=== PATIENT | male | born 1950 | race American Indian/Alaskan Native ===

== ENCOUNTER 2016-08-18 10:00 | Outpatient (CLI) | payer MEDICARE ==
--- NOTE | 2016-08-18 12:11 | Magnetic Resonance Report ---
MRI BRAIN WITHOUT CONTRAST INDICATION: Dementia, seizures. COMPARISON: Head CT from yesterday and 03/23/2013 brain MRI. FINDINGS: Noncontrast multiplanar and multisequence MRI of the brain again demonstrates symmetric, mild to moderate ventricular and sulcal enlargement. Slight periventricular FLAIR and T2 weighted hyperintensities. Approximately 5 mm right periventricular/caudate lacunar infarct, axial image 14, series 7. No definite acute infarct, hemorrhage mass effect or midline shift. No abnormal extra axial masses or fluid collections. Normal major intracranial vascular flow voids. Normal posterior fossa with preserved basilar cisterns and symmetric seventh and eighth complexes. Unremarkable eye globes. Leftward nasal septal deviation. Mild bilateral ethmoid, left frontal and right maxillary sinus mucosal thickening suspected. Clear remainder imaged paranasal sinuses and mastoid air cells. Normal midline appearance without evidence of Chiari malformation, though corpus callosum again appears somewhat small/atrophic as well. CONCLUSION: No acute intracranial CT abnormality or significant interval change with atrophy and few other incidental findings again noted, as described. Please correlate. Thank you for the opportunity to participate in this patient's care.
== END 2016-08-18 10:01 | disposition home or self-care (01) ==
LOC: MRI 10:00
PROVIDERS: ATTEND Psychiatry & Neurology Neurology
DX: F03.90 Unspecified dementia, unspecified severity, without behavioral disturbance, psychotic disturbance, mood disturbance, and anxiety (principal); F44.5 Conversion disorder with seizures or convulsions; J34.2 Deviated nasal septum; G31.89 Other specified degenerative diseases of nervous system
CPT/HCPCS: 70551

== ENCOUNTER 2018-09-08 12:27 | Inpatient (IN) | payer MEDICARE, MEDICAID ==
[2018-09-08] MEDS ORDERED: AMIDATE IV ONE ×2 (12:52→14:39)
[2018-09-08] MEDS ORDERED: ZEMURON IV ONE ×2 (12:52→14:39)
[2018-09-08] MEDS ORDERED: VASELINE LIP THERAPY TP PRN (13:00)
[2018-09-08] MEDS ORDERED: ARTIFICIAL TEARS OPHTH OINT OU PRN (13:00)
[2018-09-08] MEDS ORDERED: VERSED IV PRN (13:00)
[2018-09-08] MEDS ORDERED: NACL 0.9% 1000 ML 1,000 ML IV ONE (13:01)
[2018-09-08] MEDS ORDERED: KEPPRA 1,000 MG/NS 0.75% 100ML 1,000 MG/100 ML BAG IV ONE (13:01)
[2018-09-08 13:34] LABS: Hematocrit 43.6 % (35.5-45.6); Hemoglobin 14.1 gm/dl (11.8-15.2); Mean Corpuscular HGB Conc 32 % (32-34); Mean Corpuscular Volume 93 fl (84-94); Platelet Count 188 K/mm3 (140-440); Red Blood Count 4.67 M/mm3 (3.65-5.03); Red Cell Distribution Width 13.7 % (13.2-15.2)
--- NOTE | 2018-09-08 13:34 | Emergency Department Report ---
HPI - General Time Seen by Provider: 09/08/18 13:00 - HPI HPI: 67-year-old -[place] male presents to the emergency department via EMS from his [facility] with complaint of some seizure-like activity, a fall, some head injury with laceration, followed by some agitation requiring sedation. The patient is listed as having history of dementia with some occasional behavi oral disturbances, COPD, malnutrition, previous alcohol abuse with mood disorder and there is a diagnosis of conversion disorder with seizures or convulsions. The report is that the patient had some seizure-like activity that caused him to fall from his bed, hit his head and have a laceration. EMS found the patient to be very agitated and combative and gave him 10 mg of Versed as treatment. The patient presents sedated or unresponsive with some low oxygen and an abnormal respiratory pattern. He had a pulse ox of 85% on a nonrebreather. ED Past Medical Hx - Past Medical History Hx Congestive Heart Failure: No Hx Diabetes: No Hx Renal Disease: Yes Hx Arthritis: Yes (GOUT) Hx Seizures: Yes (SECONDARY TO ETOH ABUSE) Hx Asthma: No Hx COPD: No Hx Dementia: Yes - Social History Smoking Status: Unknown if ever smoked Substance Use Type: None - Medications Home Medications: Home Medications Medication Instructions Recorded Confirmed Last Taken Type Citalopram [celeXA] 10 mg PO QDAY #30 tablet 06/28/15 09/08/18 Unknown Rx Folic Acid [Folvite] 1 mg PO QDAY #30 tablet 06/28/15 09/08/18 Unknown Rx Isoniazid 300 mg PO QDAY #30 tablet 06/28/15 09/08/18 Unknown Rx Pyridoxine [Vitamin B-6 50MG TAB] 50 mg PO DAILY #30 tablet 06/28/15 09/08/18 Unknown Rx Thiamine [Vitamin B-1] 100 mg PO QDAY #30 tablet 06/28/15 09/08/18 Unknown Rx LORazepam [Ativan INJ] 0.5 mg IM Q8H PRN 09/08/18 09/08/18 Unknown History LORazepam [Ativan] 0.25 mg PO DAILY 09/08/18 09/08/18 Unknown History Lacosamide [Vimpat] 200 mg PO Q12H 09/08/18 09/08/18 Unknown History Memantine HCl [Namenda] 10 mg PO QAM&QHS 09/08/18 09/08/18 Unknown History Mirtazapine 7.5 mg PO HS 09/08/18 09/08/18 Unknown History ED Review of Systems ROS: Stated complaint: SEIZURE Other details as noted in HPI Comment: Unobtainable due to pts medical conditions Physical Exam - Physical Exam Vital Signs: Vital Signs 09/08/18 12:30 Pulse Rate 119 H Respiratory 20 Rate Blood Pressure 103/66 O2 Sat by Pulse 98 Oximetry Physical Exam: GENERAL: Patient is ill-appearing. HENT: Normocephalic. Atraumatic. Patient has moist mucous membranes. EYES: Pupils equal reactive to light bilaterally. NECK: Supple. Trachea is midline. CHEST/LUNGS: Patient has bradypnea with abdominal retractions and accessory muscle use. He is having some snoring respirations. There is respiratory distress noted. HEART/CARDIOVASCULAR: Regular. There is mild to moderate tachycardia. There is no murmur. ABDOMEN: Abdomen is soft, nontender. Patient has normal bowel sounds. There is no abdominal distention. SKIN: Skin is warm and dry. There is a small non-expanding hematoma and abrasion or superficial laceration over the right eyebrow. NEURO: The patient is unresponsive or postictal. He is not following any commands. MUSCULOSKELETAL: There is no tenderness or deformity. Radial pulse +2 over 4. Capillary refill less than 2 seconds. ED Course Vital Signs 09/08/18 12:30 Pulse Rate 119 H Respiratory 20 Rate Blood Pressure 103/66 O2 Sat by Pulse 98 Oximetry - ABG Interpretation Ph: 7.477 PCO2: 31 PO2: 136 Bicarbonate: 23 Interpretation: normal - Intubation Time Out Performed: Yes Sedative: Etomidate Mg Given: 20 Paralytic: Rocuronium Mg Given: 70 Laryngoscope: Wolf Size: 4 ET Tube Size: 7.5 Tube Secured Depth (cm): 24 Tube Secured Location: lips Tube Placement Confirmation: visualized tube passing t, equal breath sounds bilat, confirmation by capnometr Patient Tolerated Procedure: well Intubation Complications: none - Pulse Oximetry Interpretation Digit-Finger Initial Pulse Oximetry Readin O2 Sat by Pulse Oximetry: 86 Actions Taken: intubated Additional Comments: Patient had pulse ox of 86% on nonrebreather with signs of respiratory distress. ED Medical Decision Making - Lab Data Result diagrams: 09/08/18 13:04 09/08/18 13:04 - EKG Data -: EKG Interpreted by Fl EKG shows normal: sinus rhythm, axis, intervals, QRS complexes, ST-T waves Rate: tachycardia (116 bpm) - Radiology Data Radiology results: report reviewed PROCEDURE: CT HEAD/BRAIN WO CON TECHNIQUE: Computerized tomography of the head was performed without contrast material. CT DOSE LENGTH PRODUCT: 1166.5 mGycm HISTORY: Seizure COMPARISONS: MRI brain 08/18/2016 . FINDINGS: Skull and scalp: Normal . Paranasal sinuses: Normal . Ventricles and subarachnoid spaces: Normal . Cerebrum: No evidence of hemorrhage, acute infarction or mass . Tiny remote lacunar infarct in the right basal ganglia is unchanged. Cerebellum and brainstem: No evidence of hemorrhage, acute infarction or mass . Vasculature: Normal . Other: None . ASPECTS: 10 IMPRESSION: No acute intracranial abnormality. No change. This document is electronically signed by Aury Gabriel MD., September 08 2018 04:22:14 PM ET Transcribed By: [facility] Dictated By: AURY GABRIEL MD Electronically Authenticated By: AURY GABRIEL MD Signed Date/Time: 09/08/18 1624 PROCEDURE: CT CERVICAL SPINE WO CON TECHNIQUE: Computerized tomography of the cervical spine was performed from the skull base to T1 without contrast material. CT DOSE LENGTH PRODUCT: 570.4 mGycm HISTORY: Seizure COMPARISONS: None . FINDINGS: Bony alignment is normal. The vertebral heights are maintained. There is loss of height of the disc spaces throughout the cervical spine with associated degenerative endplate change.. There is multiple level uncovertebral degenerative change and degenerative facet change. There is multiple level moderate to marked bony canal and foraminal stenosis secondary to spondylitic change. Visualization of detail the contents of the cervical canal is limited by artifact. There is no evidence of fracture or subluxation. The paraspinous soft tissues are unremarkable. An endotracheal tube is demonstrated. The tip is not included in the [id number]. The visualized portions of the lungs are notable for pulmonary emphysema. IMPRESSION: 1. No evidence of fracture or subluxation. 2. Cervical spondylosis with multiple level canal and foraminal stenosis. If further imaging is required, MRI may be helpful. 3. Pulmonary emphysema. This document is electronically signed by Soledad Thompson MD., September 08 2018 04:32:19 PM ET Transcribed By: Dictated By: SOLEDAD THOMPSON MD Electronically Authenticated By: SOLEDAD THOMPSON MD Signed Date/Time: 09/08/18 9570 . - Medical Decision Making This patient presented after having an alleged seizure at his [facility] followed by some respiratory distress. When the patient got to the emergency department he was 86% on a nonrebreather and was having some shallow slow respirations. This may be secondary to being postictal but the patient also did receive a large dose of benzodiazepines for his agitation in route. For this reason the patient was intubated. Patient had a CT scan of the head as well as the cervical spine that did not show any fracture, dislocation, subluxation, bleed, shift, mass, ischemia, or any other acute process. The patient's labs have been mostly unremarkable for any etiology of his seizure or fall. Patient will be admitted to the ICU for further evaluation and treatment and was accepted for admission by the hospitalist, Dr. Sarmiento. - Differential Diagnosis epilepsy, conversion disorder, substance abuse, dementia Critical Care Time: Yes Critical care time in (mins) excluding proc time.: 35 Critical care attestation.: If time is entered above; I have spent that time in minutes in the direct care of this critically ill patient, excluding procedure time. Critical care time was spent on this patient during his initial evaluation, multiple re- evaluations, ordering and interpretation of labs and imaging. This does not include the time spent for the intubation procedure. Critical Care Time: 35 minutes ED Disposition Clinical Impression: Seizure, Acute respiratory failure with hypoxia Disposition: OP ADMIT IP TO THIS HOSP Is pt being admited?: Yes Condition: Critical
[2018-09-08] MEDS: MIDAZOLAM 100 MG in NACL 0.9% 80 ML IV SCH (13:41)
--- NOTE | 2018-09-08 13:54 | XRay Report ---
AP CHEST: HISTORY: Endotracheal tube placement The endotracheal tube appears to terminate 1.3 cm superior to the mika. The lungs are hyperinflated but clear. No pleural effusion or pneumothorax. Normal heart size and pulmonary vessels. The bony structures are demineralized but grossly intact. Chronic left rib deformities and chronic right distal clavicle deformity are noted. IMPRESSION: Endotracheal tube as described. Hyperinflated lungs.
[2018-09-08 14:20] LABS: Alanine Aminotransferase 10 units/L (7-56); Albumin 3.9 g/dL (3.9-5); BUN/Creatinine Ratio 8; Blood Urea Nitrogen 11 mg/dL (9-20); Calcium 9.6 mg/dL (8.4-10.2); Hemolysis Index 55
[2018-09-08] MEDS: fentaNYL DRIP Premix 2,000 MCG/100 ML BAG IV SCH (14:31)
[2018-09-08 14:48] LABS: Basophils % (Manual) 0 % (0.0-1.8); Total Cells Counted 100
[2018-09-08 14:49] LABS: Anisocytosis Few; Platelet Estimate Consistent w Auto; Poikilocytosis Few
[2018-09-08 15:47] LABS: Bilirubin,Urine NEG (Negative); Blood,Urine NEG (Negative); Color,Urine Yellow (Yellow); Hyaline Casts,Urine 1 /LPF; Mucus,Urine FEW /HPF; Protein,Urine <15 mg/dL mg/dL (Negative); Urobilinogen,Urine < 2.0 mg/dL (<2.0)
[2018-09-08 16:00] LABS: Amphetamine Screen,Urine PRESUMPTIVE NEGATIVE; Cannabinoid Screen,Urine PRESUMPTIVE NEGATIVE; Cocaine Screen,Urine PRESUMPTIVE NEGATIVE; Methadone Screen,Urine PRESUMPTIVE NEGATIVE; Opiate Screen,Urine PRESUMPTIVE NEGATIVE
[2018-09-08] MEDS ORDERED: KETALAR IV ONE (16:03)
--- NOTE | 2018-09-08 16:24 | Cat Scan Report ---
PROCEDURE: CT HEAD/BRAIN WO CON TECHNIQUE: Computerized tomography of the head was performed without contrast material. CT DOSE LENGTH PRODUCT: 1166.5 mGycm HISTORY: Seizure COMPARISONS: MRI brain 08/18/2016 . FINDINGS: Skull and scalp: Normal . Paranasal sinuses: Normal . Ventricles and subarachnoid spaces: Normal . Cerebrum: No evidence of hemorrhage, acute infarction or mass . Tiny remote lacunar infarct in the r ight basal ganglia is unchanged. Cerebellum and brainstem: No evidence of hemorrhage, acute infarction or mass . Vasculature: Normal . Other: None . ASPECTS: 10 IMPRESSION: No acute intracranial abnormality. No change. This document is electronically signed by Aury Gabriel MD., September 08 2018 04:22:14 PM ET
[2018-09-08 16:27] LABS: Benzodiazepines Screen,Urine PRESUMPTIVE POSITIVE
--- NOTE | 2018-09-08 16:34 | Cat Scan Report ---
PROCEDURE: CT CERVICAL SPINE WO CON TECHNIQUE: Computerized tomography of the cervical spine was performed from the skull base to T1 wit hout contrast material. CT DOSE LENGTH PRODUCT: 570.4 mGycm HISTORY: Seizure COMPARISONS: None . FINDINGS: Bony alignment is normal. The vertebral heights are maintained. There is loss of height of the disc spaces throughout the cervical spine with associated degenerative endplate change.. There is multiple level uncovertebral degenerative change and degenerative facet change. There is multiple level moderate to marked bony canal and foraminal stenosis secondary to spondylitic change. Visualization of detail the contents of the cervical canal is limited by artifact. There is no evidence of fracture or subluxation. The paraspinous soft tissues are unremarkable. An endotracheal tube is demonstrated. The tip is not included in the [id number]. The visualized portions of the lungs are notable for pulmonary emphysema. IMPRESSION: 1. No evidence of fracture or subluxation. 2. Cervical spondylosis with multiple level canal and foraminal stenosis. If further imaging is required, MRI may be helpful. 3. Pulmonary emphysema. This document is electronically signed by Soledad Thompson MD., September 08 2018 04:32:19 PM ET
[2018-09-09] MEDS: KEPPRA 750 MG in D5W 100 ML IV SCH ×3 (00:28→21:41)
--- NOTE | 2018-09-09 00:46 | XRay Report ---
PROCEDURE: XR CHEST 1V AP TECHNIQUE: Chest radiograph single view. HISTORY: follow up respiratory failure COMPARISONS: None available . FINDINGS: Heart: Normal. Mediastinum/Vessels: Normal. Lungs/Pleural space: Slight atelectasis and mild effusion left lower lung.. Bony thorax: No acute osseous abnormality. Life support devices: None. IMPRESSION: Slight atelectasis and mild effusion left lower lung. This document is electronically signed by Pauline Felix DO., September 09 2018 12:44:19 AM ET
[2018-09-09] MEDS ORDERED: HALDOL IM PRN (02:00)
--- NOTE | 2018-09-09 07:18 | Event Note ---
Date: 09/08/18 Status Epilepticus Intubated
[2018-09-09] MEDS ORDERED: PROVENTIL IH PRN (07:28)
--- NOTE | 2018-09-09 07:46 | History and Physical Report ---
CHIEF COMPLAINT: Persistent seizures. HISTORY OF PRESENT ILLNESS: A 67-year-old -[place]azi male with history of seizure disorder, who was sent from [facility] for a fall with a laceration to the head, followed by agitation requiring sedation. The patient has severe dementia and COPD. The patient was very agitated and combative and was given 10 mg of Versed. The patient had very low oxygen levels, persistent hypoxia and sats of 85% on a nonrebreather. Because of persistent hypoxia and seizures, the patient was intubated for protection of airway and for oxygenation. PAST MEDICAL HISTORY: Significant for seizure disorder, dementia, arthritis. PAST SURGICAL HISTORY: Not available. SOCIAL HISTORY: The patient is a resident of [facility]. FAMILY HISTORY: Unavailable. PHYSICAL EXAMINATION: GENERAL: Elderly male, disheveled, intubated. VITAL SIGNS: Blood pressure is 106/71, temperature is 98, pulse is 98, respiratory rate is 12-14 on the vent. HEENT: Unremarkable. NECK: Supple, no lymphadenopathy, no thyromegaly, intubated. LUNGS: Scattered rhonchi bilaterally. CARDIOVASCULAR: S1, S2 heard. No gallop, no murmur, no rub. Apical impulse in left fifth intercostal space and midclavicular line. ABDOMEN: Soft and benign. No hepatosplenomegaly. No guarding, no rigidity. Hernial orifices are normal. EXTREMITIES: Good pedal pulses. No pedal edema. CENTRAL NERVOUS SYSTEM: The patient is sedated. 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 LABORATORY DATA: Shows white count is 13,700, H and H are 14.1 and 43.6, platelet count is 188,000. Electrolytes are normal. Bicarbonate is 15. TSH is 12.13. Urine normal. Drug screen positive for benzos. The patient is on benzos. Chest x-ray, no acute findings, endotracheal tube in place. Head CT and cervical spine CT, no fractures, no acute findings. The patient has cervical spondylosis with multiple level canal and foraminal stenosis. Primary emphysema. Head CT with no acute findings like bleed. ASSESSMENT AND PLAN: 1. Status epilepticus. The patient intubated. IV Keppra was initiated. IV fluids initiated. 2. Acute respiratory failure. The patient on vent support. DuoNebs around the clock and p.r.n. 3. Laceration to the head, daily dressing. 4. Dementia, supportive care. The patient is on Namenda to be started after extubation. 5. Elevated TSH checked. Free T4 ordered. Thyroid panel ordered. No Synthroid was ordered. Check a thyroid panel and Synthroid if necessary. 6. Deep venous thrombosis prophylaxis. Lovenox 30 mg subcutaneous daily. Critical care time was 35 minutes. JOB# [id number] MANOJ/DAKOTA CALIXTO
--- NOTE | 2018-09-09 08:36 | Progress Note ---
Assessment and Plan Assessment and plan: Patient is a 67 yo man from [facility] with a history of Advance Dementia, COPD, Anxiety disorder, Seizure disorder due to prior ETOH abuse, gout and CKD 3 who presented to [facility] ED after seizure and fall resulting in patient hitting his head on the floor causing laceration followed by agitation. There is report of him being non-compliant with meds at the [facility]. He was combative en route to hospital and EMS gave him Versed. He was sedaged and unresponsive with pulse ox of only 85% on Nonrebreather 100% O2 mask. He was subsequently intubated by Dr. Clemente and admitted to the ICU * CT head wo contrast IMPRESSION: No acute intracranial abnormality. No change. * pCXR IMPRESSION: Slight atelectasis and mild effusion left lower lung. * CT cervical spine wo contrast IMPRESSION: 1. No evidence of fracture or subluxation. 2. Cervical spondylosis with multiple level canal and foraminal stenosis. If further imaging is required, MRI may be helpful. 3. Pulmonary emphysema. Acute respiratory failure s/p ETT MV: daily weaning, MV monitoring, O2 monitoring, Consult [facility] Status Epilepticus: treat with IV keppra, consult Neurology when available Acute encephalopathy due to the above, poa SIRS with organ dysfunction, poa wbc 13.7 with right shift, normal h/h/plt Prasad in place: remove Head trauma s/p seizure syncopal fall: local wound care Acidotic, carbon dioxide level 15 normal Cr 1.5 Elevated TSH 12.130 with normal Free T4 of 1.07, subclinical vs critical illness rxn UDS positive for Benzodiazepines, normal serum alcohol DVT ppx on sq lovenox full code CCT 32 minutes History Interval history: Patient was seen and examined. Follow-up on current diagnosis of SZ and respiratory failure. No overnight events reported to me. Patient denies any chest pain, shortness breath, nausea/vomiting or severe headaches. Imaging, nursing note, chart, labs and old chart reviewed. Discussed with patient. Hospitalist Physical - Physical exam Narrative exam: Gen: ill appearing, thin frail, intubated HEENT: >with head laceratio, EOMI, Intubated with ETT in place Neck: supple, no adenopathy, no thyromegaly, no JVD CVS/Heart: RRR, normal S1S2, pulses present bilaterally Chest/Lungs: CTA B, Symmetrical chest expansion, good air entry bilaterally GI/Abdomen: soft, NTND, good bowel sounds, no guarding or rebound /Bladder: no suprapubic tenderness, no CVA or paraspinal tenderness Extermity/Skin: no c/c/e, no obvious rash MSK: sedated Neuro: sedated Psych: sedated - Constitutional Vitals: Temp Pulse Resp BP Pulse Ox 98.8 F 86 14 102/69 100 09/09/18 05:00 09/09/18 07:10 09/09/18 07:10 09/09/18 07:10 09/09/18 07:10 Results - Labs CBC & Chem 7: 09/08/18 13:04 09/08/18 13:04 Labs: Laboratory Last Values WBC 13.7 K/mm3 (4.5-11.0) H 09/08/18 13:04 RBC 4.67 M/mm3 (3.65-5.03) 09/08/18 13:04 Hgb 14.1 gm/dl (11.8-15.2) 09/08/18 13:04 Hct 43.6 % (35.5-45.6) 09/08/18 13:04 MCV 93 fl (84-94) 09/08/18 13:04 MCH 30 pg (28-32) 09/08/18 13:04 MCHC 32 % (32-34) 09/08/18 13:04 RDW 13.7 % (13.2-15.2) 09/08/18 13:04 Plt Count 188 K/mm3 (140-440) 09/08/18 13:04 Lymph # Police [employer] 09/08/18 13:04 Add Manual Diff Complete 09/08/18 13:04 Total Counted 100 09/08/18 13:04 Seg Neuts % (Manual) 54.0 % (40.0-70.0) 09/08/18 13:04 0 % 09/08/18 13:04 39.0 % (13.4-35.0) H 09/08/18 13:04 Reactive Lymphs % (Man) 0 % 09/08/18 13:04 5.0 % (0.0-7.3) 09/08/18 13:04 2.0 % (0.0-4.3) 09/08/18 13:04 0 % (0.0-1.8) 09/08/18 13:04 0 % 09/08/18 13:04 0 % 09/08/18 13:04 0 % 09/08/18 13:04 0 % 09/08/18 13:04 Nucleated RBC % Not Reportable 09/08/18 13:04 Seg Neutrophils # Man 7.4 K/mm3 (1.8-7.7) 09/08/18 13:04 Band Neutrophils # 0.0 K/mm3 09/08/18 13:04 5.3 K/mm3 (1.2-5.4) 09/08/18 13:04 Abs React Lymphs (Man) 0.0 K/mm3 09/08/18 13:04 0.7 K/mm3 (0.0-0.8) 09/08/18 13:04 0.3 K/mm3 (0.0-0.4) 09/08/18 13:04 0.0 K/mm3 (0.0-0.1) 09/08/18 13:04 0.0 K/mm3 09/08/18 13:04 0.0 K/mm3 09/08/18 13:04 0.0 K/mm3 09/08/18 13:04 Blast Cells # 0.0 K/mm3 09/08/18 13:04 WBC Morphology Not Reportable 09/08/18 13:04 Hypersegmented Neuts Not Reportable 09/08/18 13:04 Hyposegmented Neuts Not Reportable 09/08/18 13:04 Hypogranular Neuts Not Reportable 09/08/18 13:04 Not Reportable 09/08/18 13:04 Not Reportable 09/08/18 13:04 Not Reportable 09/08/18 13:04 Not Reportable 09/08/18 13:04 Not Reportable 09/08/18 13:04 Not Reportable 09/08/18 13:04 Consistent w auto 09/08/18 13:04 Not Reportable 09/08/18 13:04 Plt Clumps, EDTA Not Reportable 09/08/18 13:04 Not Reportable 09/08/18 13:04 Not Reportable 09/08/18 13:04 Not Reportable 09/08/18 13:04 Plt Morphology Comment Not Reportable 09/08/18 13:04 RBC Morphology Not Reportable 09/08/18 13:04 Dimorphic RBCs Not Reportable 09/08/18 13:04 Not Reportable 09/08/18 13:04 Not Reportable 09/08/18 13:04 Few 09/08/18 13:04 Few 09/08/18 13:04 Not Reportable 09/08/18 13:04 Not Reportable 09/08/18 13:04 Not Reportable 09/08/18 13:04 Not Reportable 09/08/18 13:04 Not Reportable 09/08/18 13:04 Not Reportable 09/08/18 13:04 Not Reportable 09/08/18 13:04 Not Reportable 09/08/18 13:04 Not Reportable 09/08/18 13:04 Not Reportable 09/08/18 13:04 Not Reportable 09/08/18 13:04 Not Reportable 09/08/18 13:04 Not Reportable 09/08/18 13:04 Not Reportable 09/08/18 13:04 Not Reportable 09/08/18 13:04 Acanthocytes (Spur) Not Reportable 09/08/18 13:04 Rouleaux Not Reportable 09/08/18 13:04 Not Reportable 09/08/18 13:04 Not Reportable 09/08/18 13:04 Not Reportable 09/08/18 13:04 Not Reportable 09/08/18 13:04 Hem Pathologist Commnt No 09/08/18 13:04 POC ABG pH 7.411 (7.35-7.45) 09/09/18 05:33 POC ABG pCO2 36.3 (35-45) 09/09/18 05:33 POC ABG pO2 97 (80-105) 09/09/18 05:33 POC ABG HCO3 23.0 (22-26 mml/L) 09/09/18 05:33 POC ABG Total CO2 24 (23-27mmol/L) 09/09/18 05:33 POC ABG O2 Sat 98 09/09/18 05:33 POC ABG Base Excess -2 ((-2) - (+3)mmol/L) 09/09/18 05:33 35 % 09/09/18 05:33 Sodium 141 mmol/L (137-145) 09/08/18 13:04 Potassium 3.9 mmol/L (3.6-5.0) 09/08/18 13:04 Chloride 101.6 mmol/L (98-107) 09/08/18 13:04 Carbon Dioxide 15 mmol/L (22-30) L 09/08/18 13:04 28 mmol/L 09/08/18 13:04 BUN 11 mg/dL (9-20) 09/08/18 13:04 1.3 mg/dL (0.8-1.5) 09/08/18 13:04 Estimated GFR > 60 ml/min 09/08/18 13:04 8 % 09/08/18 13:04 Glucose 86 mg/dL (75-100) 09/08/18 13:04 Calcium 9.6 mg/dL (8.4-10.2) 09/08/18 13:04 0.20 mg/dL (0.1-1.2) 09/08/18 13:04 AST 27 units/L (5-40) 09/08/18 13:04 ALT 10 units/L (7-56) 09/08/18 13:04 64 units/L (35-129) 09/08/18 13:04 109 units/L (55-170) 09/08/18 13:04 7.0 g/dL (6.3-8.2) 09/08/18 13:04 3.9 g/dL (3.9-5) 09/08/18 13:04 1.3 % 09/08/18 13:04 TSH 12.130 mlU/mL (0.270-4.200) H 09/08/18 13:04 Free T4 1.07 ng/dL (0.76-1.46) 09/08/18 13:04 Yellow (Yellow) 09/08/18 15:20 Slightly-cloudy (Clear) 09/08/18 15:20 5.0 (5.0-7.0) 09/08/18 15:20 Ur Specific Revere 1.009 (1.003-1.030) 09/08/18 15:20 <15 mg/dl mg/dL (Negative) 09/08/18 15:20 Neg mg/dL (Negative) 09/08/18 15:20 Neg mg/dL (Negative) 09/08/18 15:20 Neg (Negative) 09/08/18 15:20 Neg (Negative) 09/08/18 15:20 Neg (Negative) 09/08/18 15:20 < 2.0 mg/dL (<2.0) 09/08/18 15:20 Ur Leukocyte Esterase Neg (Negative) 09/08/18 15:20 1.0 /HPF (0.0-6.0) 09/08/18 15:20 3.0 /HPF (0.0-6.0) 09/08/18 15:20 U Epithel Cells (Auto) < 1.0 /HPF (0-13.0) 09/08/18 15:20 Hyaline Casts 1 /LPF 09/08/18 15:20 Few /HPF 09/08/18 15:20 Presumptive negative 09/08/18 15:21 Presumptive negative 09/08/18 15:21 Ur Barbiturates Screen Presumptive negative 09/08/18 15:21 Ur Phencyclidine Scrn Presumptive negative 09/08/18 15:21 Ur Amphetamines Screen Presumptive negative 09/08/18 15:21 U Benzodiazepines Scrn Presumptive positive 09/08/18 15:21 Presumptive negative 09/08/18 15:21 U Marijuana (THC) Screen Presumptive negative 09/08/18 15:21 Disclamer 09/08/18 15:21 Plasma/Serum Alcohol < 0.01 % (0-0.07) 09/08/18 13:04 Active Medications - Current Medications Current Medications: Generic Name Dose Route Start Last Admin Trade Name Freq PRN Reason Stop Dose Admin Albuterol 2.5 mg 09/09/18 07:28 Proventil IH Q4HRT PRN Shortness Of Breath Albuterol/Ipratropium 1 ampul 09/09/18 08:00 Duoneb *Not For Prn Use* IH QIDRT [facility] Enoxaparin Sodium 40 mg 09/09/18 22:00 Lovenox SUB-Q QDAY@2200 [facility] Hydrophilic Ointment 1 applic 09/08/18 13:00 Vaseline Lip Therapy TP Q2HR PRN Dry Lips Midazolam HCl 100 mg/ Sodium 100 mls @ 2 mls/hr 09/08/18 14:00 09/08/18 23:44 Chloride IV 2 mg/hr TITR [facility] 2 mls/hr Titration Protocol 2 MG/HR Fentanyl Citrate 2,000 mcg in 100 mls @ 3.2 mls/hr 09/08/18 15:00 09/08/18 14:31 Fentanyl Drip Premix IV 1 mcg/kg/hr TITR [facility] 3.2 mls/hr Administration Protocol 1 MCG/KG/HR Levetiracetam 750 mg/ Dextrose 107.5 mls @ 400 mls/hr 09/08/18 23:00 09/09/18 00:28 IV 400 mls/hr Q12HR [facility] Administration Ceftriaxone Sodium 2 gm in 100 mls @ 200 mls/hr 09/09/18 07:28 Rocephin/Ns 2 Gm/100 Ml IV Q24HR [facility] Protocol Midazolam HCl 2 mg 09/08/18 13:00 Versed IV Q10MIN PRN Sedation Multi-Ingred Cream/Lotion/Oil/Oint 1 applic 09/08/18 13:00 Artificial Tears Ophth Oint OU Q4HR PRN Dry Eye(s)
[2018-09-09] MEDS: fentaNYL DRIP Premix 2,000 MCG/100 ML BAG IV SCH (09:03)
[2018-09-09] MEDS: ROCEPHIN/NS 2 GM/100 ML 2 GM/100 ML BAG IV SCH (09:03)
[2018-09-09] MEDS: DUONEB *Not for PRN Use IH SCH ×4 (09:51→19:32)
[2018-09-09 15:01] LABS: Free T4 (Free Thyroxine) 1.22 ng/dL (0.76-1.46)
--- NOTE | 2018-09-09 15:25 | Consultation ---
History of Present Illness Consult date: 09/09/18 Requesting physician: HARINDER ECKERT Reason for consult: hypoxemia (secondary to sedative medication and possible status epilepticus) History of present illness: 67 y/o male brought in for seizures. apparently became combative and was given versed 10 by EMS per report. On arrival patient had a sat of 85% on a Nonreb reather. He was intubated and then started on continuous sedation. Currently comatose, not breathing over the vent on Versed 2 and Fentanyl 2. He has not had a sedation vacation. He was started on BID Keppra for seizures. Past History Past Medical History: other (unable to obtain from patient but apparently has psych history and history of seizures) Past Surgical History: Other (unable to obtain) Social history: other (unable to obtain) Family history: other (unable to obtain) Medications and Allergies Allergies Allergy/AdvReac Type Severity Reaction Status Date / Time No Known Allergies Allergy Verified 03/21/13 23:55 Home Medications Medication Instructions Recorded Confirmed Last Taken Type Citalopram [celeXA] 10 mg PO QDAY #30 tablet 06/28/15 09/08/18 Unknown Rx Folic Acid [Folvite] 1 mg PO QDAY #30 tablet 06/28/15 09/08/18 Unknown Rx Isoniazid 300 mg PO QDAY #30 tablet 06/28/15 09/08/18 Unknown Rx Pyridoxine [Vitamin B-6 50MG TAB] 50 mg PO DAILY #30 tablet 06/28/15 09/08/18 Unknown Rx Thiamine [Vitamin B-1] 100 mg PO QDAY #30 tablet 06/28/15 09/08/18 Unknown Rx LORazepam [Ativan INJ] 0.5 mg IM Q8H PRN 09/08/18 09/08/18 Unknown History LORazepam [Ativan] 0.25 mg PO DAILY 09/08/18 09/08/18 Unknown History Lacosamide [Vimpat] 200 mg PO Q12H 09/08/18 09/08/18 Unknown History Memantine HCl [Namenda] 10 mg PO QAM&QHS 09/08/18 09/08/18 Unknown History Mirtazapine 7.5 mg PO HS 09/08/18 09/08/18 Unknown History Active Meds: Active Medications Albuterol (Proventil) 2.5 mg IH Q4HRT PRN PRN Reason: Shortness Of Breath Albuterol/Ipratropium (Duoneb *Not For Prn Use*) 1 ampul IH QIDRT [facility] Last Admin: 09/09/18 13:52 Dose: 1 ampul Documented by: Enoxaparin Sodium (Lovenox) 40 mg SUB-Q QDAY@2200 BALDEMAR Hydrophilic Ointment (Vaseline Lip Therapy) 1 applic TP Q2HR PRN PRN Reason: Dry Lips Midazolam HCl 100 mg/ Sodium (Chloride) 100 mls @ 2 mls/hr IV TITR [facility]; Protocol Last Titration: 09/08/18 23:44 Dose: 2 mg/hr, 2 mls/hr Documented by: Fentanyl Citrate (Fentanyl Drip Premix) 2,000 mcg in 100 mls @ 3.2 mls/hr IV TITR [facility]; Protocol Last Admin: 09/09/18 09:03 Dose: 1 mcg/kg/hr, 3.2 mls/hr Documented by: Levetiracetam 750 mg/ Dextrose 107.5 mls @ 400 mls/hr IV Q12HR [facility] Last Admin: 09/09/18 09:03 Dose: 400 mls/hr Documented by: Ceftriaxone Sodium (Rocephin/Ns 2 Gm/100 Ml) 2 gm in 100 mls @ 200 mls/hr IV Q24HR [facility]; Protocol Last Admin: 09/09/18 09:03 Dose: 200 mls/hr Documented by: Midazolam HCl (Versed) 2 mg IV Q10MIN PRN PRN Reason: Sedation Multi-Ingred Cream/Lotion/Oil/Oint (Artificial Tears Ophth Oint) 1 applic OU Q4HR PRN PRN Reason: Dry Eye(s) Review of Systems ROS unobtainable: due to endotracheal tube, due to mental status Physical Examination Vital signs: Vital Signs Pulse Resp BP Pulse Ox 119 H 20 103/66 98 09/08/18 12:30 09/08/18 12:30 09/08/18 12:30 09/08/18 12:30 General appearance: comatose Eyes: non-icteric ENT: other (orally intubated and sedated) Neck: supple Effort: normal Ascultation: Bilateral: clear Percussion: Bilateral: not dull Cardiovascular: regular rate and rhythm (sinus tachycardia) Gastrointestinal: soft, non-tender Extremities: no cyanosis, no edema, pink and warm, pulses normal unable to assess Results - Laboratory Findings CBC and BMP: 09/08/18 13:04 09/08/18 13:04 ABG POC ABG pH 7.411 (7.35-7.45) 09/09/18 05:33 POC ABG pCO2 36.3 (35-45) 09/09/18 05:33 POC ABG pO2 97 (80-105) 09/09/18 05:33 POC ABG HCO3 23.0 (22-26 mml/L) 09/09/18 05:33 POC ABG Total CO2 24 (23-27mmol/L) 09/09/18 05:33 POC ABG O2 Sat 98 09/09/18 05:33 Abnormal lab findings: Abnormal Labs 09/08/18 09/08/18 09/08/18 13:04 13:04 13:04 WBC 13.7 H Lymphocytes % (Manual) 39.0 H POC ABG pH POC ABG pCO2 POC ABG pO2 Carbon Dioxide 15 L TSH 12.130 H 09/08/18 17:18 WBC Lymphocytes % (Manual) POC ABG pH 7.477 H POC ABG pCO2 31.5 L POC ABG pO2 136 H Carbon Dioxide TSH - Diagnostic Findings Chest x-ray: image reviewed (Hyperinflated lungs but clear, no evidence of acute disease) Assessment and Plan 67 y/o male admitted with seizures and altered mental status, required mechanical ventilation for hypoxic respiratory failure thought secondary to meds used for control of agitation. 1. Stop all sedation 2. Spontaneous breathing trial once more awake 3. If no seizures and no other contraindications, will attempt extubation. 4. Seizure control, suggest neurology eval CCT 31 minutes.
[2018-09-09] MEDS ORDERED: PANCREAZE DR 10,500 UNIT FEEDTUBE PRN (16:12)
[2018-09-09] MEDS ORDERED: SODIUM BICARBONATE FEEDTUBE PRN (16:12)
[2018-09-09] MEDS ORDERED: SIMPLE SYRUP FEEDTUBE PRN ×2 (16:12)
--- NOTE | 2018-09-09 16:23 | XRay Report ---
PROCEDURE: XR CHEST 1V AP TECHNIQUE: Chest radiograph single view. HISTORY: PICC placement COMPARISONS: CXR 09/09/2018 . FINDINGS: Heart: Normal. Mediastinum/Vessels: Normal. Lungs/Pleural space: Normal. No pneumothorax Bony thorax: No acute osseous abnormality. Life support devices: Left subclavian PICC line terminates in the distal superior vena cava in satisf actory position.. Endotracheal tube is unchanged. IMPRESSION: No acute cardiopulmonary abnormality. Satisfactory left PICC line placement This document is electronically signed by Aury Gabriel MD., September 09 2018 04:21:50 PM ET
[2018-09-09] MEDS ORDERED: HALDOL IV STA (19:42)
[2018-09-09] MEDS ORDERED: ATIVAN IV STA (19:42)
[2018-09-09] MEDS ORDERED: BENADRYL IV STA (19:45)
[2018-09-09] MEDS: LOVENOX SUB-Q SCH (21:42)
[2018-09-09] MEDS ORDERED: LOVENOX SUB-Q SCH (22:00)
[2018-09-09] MEDS: ATIVAN IV PRN (23:30)
--- NOTE | 2018-09-10 | XRay Report ---
PROCEDURE: XR CHEST 1V AP TECHNIQUE: Chest radiograph single view. HISTORY: Intubation COMPARISONS: Earlier the same date . FINDINGS: Heart: Normal. Mediastinum/Vessels: Normal. Lungs/Pleural space: Mild atelectasis bilateral lower lungs. No effusion or pneumothorax. Bony thorax: No acute osseous abnormality. Life support devices: The endotracheal tube ends 5 cm above the mkia. A left PICC catheter ends in the SVC. IMPRESSION: Mild atelectasis bilateral lower lungs. The endotracheal tube ends 5 cm above the mika . This document is electronically signed by Pauline Felix DO., September 09 2018 11:58:31 PM ET
[2018-09-10] MEDS ORDERED: HALDOL IV PRN (02:46)
[2018-09-10] MEDS: ATIVAN IV PRN (06:00)
--- NOTE | 2018-09-10 06:58 | Progress Note ---
Assessment and Plan 67 y/o male admitted with seizures and altered mental status, required mechanical ventilation for hypoxic respiratory failure thought secondary to meds used for control of agitation, s/p extubation, failed and reintubated in less than 8 hours. 1. Continue PRN sedative therapy with haldol and ativan 2. PSV trial today 3. Patient apparently with long psych history. Maybe worth while asking psych to obtain his records and review and see if they can offer in options to maintain a calm clinical state that is not too sedating. 4. Seizure control, suggest neurology eval CCT 31 minutes. Subjective Date of service: 09/10/18 Interval history: Extubated patient yesterday afternoon. Did well initially but then around 11:15 became acute agitated, had seizure like activity again and required reintubation. Done by RT successfully with no complications. Per nursing, thick secretions seen and suctioned. Per RT, not a lot of secretions seen this am while suctioning. CXR is actually clear. No fever but was slightly hypothermic post-intubation. Currently not on continuous sedation. Did get ativan again this am for what the nurse described as tremors. Objective Vital Signs - 12hr 09/09/18 09/09/18 09/09/18 19:00 19:05 19:19 Temperature Pulse Rate 127 H 145 H 151 H Pulse Rate [ Anterior Bilateral Throughout] Respiratory 16 Rate Respiratory Rate [Anterior Bilateral Throughout] Blood Pressure 107/70 112/77 O2 Sat by Pulse 100 98 Oximetry 09/09/18 09/09/18 09/09/18 19:28 19:30 19:32 Temperature Pulse Rate Pulse Rate [ 135 H Anterior Bilateral Throughout] Respiratory Rate Respiratory 18 Rate [Anterior Bilateral Throughout] Blood Pressure 112/77 O2 Sat by Pulse 98 96 Oximetry 09/09/18 09/09/18 09/09/18 19:48 20:00 20:20 Temperature 98.5 F Pulse Rate 146 H Pulse Rate [ 134 H Anterior Bilateral Throughout] Respiratory 21 Rate Respiratory 18 Rate [Anterior Bilateral Throughout] Blood Pressure 112/77 O2 Sat by Pulse 99 Oximetry 09/09/18 09/09/18 09/09/18 20:30 21:00 21:30 Temperature Pulse Rate 125 H 117 H 110 H Pulse Rate [ Anterior Bilateral Throughout] Respiratory 12 12 11 L Rate Respiratory Rate [Anterior Bilateral Throughout] Blood Pressure 125/83 125/70 113/75 O2 Sat by Pulse 94 94 Oximetry 09/09/18 09/09/18 09/09/18 21:40 22:00 22:30 Temperature Pulse Rate 105 H 110 H 105 H Pulse Rate [ Anterior Bilateral Throughout] Respiratory 11 L 10 L Rate Respiratory Rate [Anterior Bilateral Throughout] Blood Pressure 124/83 142/73 O2 Sat by Pulse 96 96 91 Oximetry 09/09/18 09/09/18 09/09/18 23:00 23:30 23:44 Temperature Pulse Rate 104 H 98 H 135 H Pulse Rate [ Anterior Bilateral Throughout] Respiratory 10 L 14 13 Rate Respiratory Rate [Anterior Bilateral Throughout] Blood Pressure 152/89 143/78 143/78 O2 Sat by Pulse 93 86 93 Oximetry 09/09/18 09/10/18 09/10/18 23:53 00:00 00:30 Temperature 97.9 F Pulse Rate 124 H 123 H 111 H Pulse Rate [ Anterior Bilateral Throughout] Respiratory 17 18 Rate Respiratory Rate [Anterior Bilateral Throughout] Blood Pressure 143/78 82/51 74/51 O2 Sat by Pulse 97 Oximetry 09/10/18 09/10/18 09/10/18 00:50 01:00 01:30 Temperature 98.0 F Pulse Rate 102 H 106 H 99 H Pulse Rate [ Anterior Bilateral Throughout] Respiratory 20 20 Rate Respiratory Rate [Anterior Bilateral Throughout] Blood Pressure 87/62 87/62 O2 Sat by Pulse 96 99 Oximetry 09/10/18 09/10/18 09/10/18 01:45 02:00 02:30 Temperature Pulse Rate 102 H 101 H 100 H Pulse Rate [ Anterior Bilateral Throughout] Respiratory 19 20 Rate Respiratory Rate [Anterior Bilateral Throughout] Blood Pressure 110/82 110/82 O2 Sat by Pulse 96 100 Oximetry 09/10/18 09/10/18 09/10/18 02:45 03:00 03:30 Temperature Pulse Rate 102 H 102 H 99 H Pulse Rate [ Anterior Bilateral Throughout] Respiratory 20 20 Rate Respiratory Rate [Anterior Bilateral Throughout] Blood Pressure 83/59 83/59 O2 Sat by Pulse 100 100 Oximetry 09/10/18 09/10/18 09/10/18 04:00 04:30 05:00 Temperature 98.0 F Pulse Rate 100 H 101 H 105 H Pulse Rate [ Anterior Bilateral Throughout] Respiratory 20 18 16 Rate Respiratory Rate [Anterior Bilateral Throughout] Blood Pressure 89/65 83/59 102/64 O2 Sat by Pulse 100 100 100 Oximetry 09/10/18 09/10/18 09/10/18 05:20 05:30 05:50 Temperature Pulse Rate 102 H Pulse Rate [ Anterior Bilateral Throughout] Respiratory 18 Rate Respiratory Rate [Anterior Bilateral Throughout] Blood Pressure 89/65 O2 Sat by Pulse 100 100 100 Oximetry 09/10/18 06:00 Temperature Pulse Rate 111 H Pulse Rate [ Anterior Bilateral Throughout] Respiratory 17 Rate Respiratory Rate [Anterior Bilateral Throughout] Blood Pressure 111/78 O2 Sat by Pulse Oximetry Constitutional: asleep Eyes: non-icteric ENT: other (orally intubated and sedated) Neck: supple Effort: normal Ascultation: Bilateral: clear Percussion: Bilateral: not dull Cardiovascular: regular rate and rhythm (sinus tachycardia) Gastrointestinal: soft, non-tender Extremities: no cyanosis, no edema, pink and warm, pulses normal Neurologic: unable to assess CBC and BMP: 09/08/18 13:04 09/08/18 13:04 ABG, PT/INR, D-dimer: ABG POC ABG pH 7.419 (7.35-7.45) 09/10/18 04:17 POC ABG pCO2 33.6 (35-45) L 09/10/18 04:17 POC ABG pO2 124 (80-105) H 09/10/18 04:17 POC ABG HCO3 21.7 (22-26 mml/L) 09/10/18 04:17 POC ABG Total CO2 23 (23-27mmol/L) 09/10/18 04:17 POC ABG O2 Sat 99 09/10/18 04:17 Abnormal lab findings: Abnormal Labs 09/08/18 09/08/18 09/08/18 13:04 13:04 13:04 WBC 13.7 H Lymphocytes % (Manual) 39.0 H POC ABG pH POC ABG pCO2 POC ABG pO2 Carbon Dioxide 15 L TSH 12.130 H 09/08/18 09/10/18 09/10/18 17:18 00:43 04:17 WBC Lymphocytes % (Manual) POC ABG pH 7.477 H 7.306 L POC ABG pCO2 31.5 L 49.4 H 33.6 L POC ABG pO2 136 H 112 H 124 H Carbon Dioxide TSH Chest x-ray: image reviewed (clear)
--- NOTE | 2018-09-10 07:45 | Event Note ---
Date: 09/10/18 Called by nurse that patient is seizing again. Given ativan 2 mg. Has not gotten morning Keppra dose yet, last dose was 10pm last night. If has another seizure, will initiate propofol drip. Needs neurology eval and EEG
[2018-09-10] MEDS ORDERED: ATIVAN IV NR (07:51)
[2018-09-10] MEDS: KEPPRA 750 MG in D5W 100 ML IV SCH ×2 (08:00→21:20)
--- NOTE | 2018-09-10 08:14 | Progress Note ---
Assessment and Plan Assessment and plan: Patient is a 67 yo man from [facility] with a history of Advance Dementia, COPD, Anxiety disorder, Seizure disorder due to prior ETOH abuse, gout and CKD 3 who presented to [facility] ED after seizure and fall resulting in patient hitting his head on the floor causing laceration followed by agitation. There is report of him being non-compliant with meds at the [place]. He was combative en route to hospital and EMS gave him Versed. He was sedaged and unresponsive with pulse ox of only 85% on Nonrebreather 100% O2 mask. He was subsequently intubated by Dr. Clemente and admitted to the ICU. Patient was extubated on 09.09.18 around 8pm but had to be re-intubated around 9:30pm. It appears patient may had a mucus plug. Also, once sedation stopped the seizure continued. EEG ordered. Staph aureus growing out trach, start IV Vancomycin 09/10/18 * CT head wo contrast IMPRESSION: No acute intracranial abnormality. No change. * pCXR IMPRESSION: Slight atelectasis and mild effusion left lower lung. * CT cervical spine wo contrast IMPRESSION: 1. No evidence of fracture or subluxation. 2. Cervical spondylosis with multiple level canal and foraminal stenosis. If further imaging is required, MRI may be helpful. 3. Pulmonary emphysema. Acute respiratory failure s/p ETT MV: daily weaning, MV monitoring, O2 monitoring, Consult CCM, input noted Suspect MRSA pneumonia: start iv vancomycin, consulted ID Status Epilepticus: treat with IV keppra, on sedation, consult Neurology when available, EEG Acute encephalopathy due to the above, poa SIRS with organ dysfunction, poa wbc 13.7 with right shift, normal h/h/plt Prasad in place: remove Head trauma s/p seizure syncopal fall: local wound care Acidotic, carbon dioxide level 15 normal Cr 1.5 Elevated TSH 12.130 with normal Free T4 of 1.07, subclinical vs critical illness rxn UDS positive for Benzodiazepines, normal serum alcohol DVT ppx on sq lovenox full code Restraints renewed CCT 35 minutes History Interval history: Patient was seen and examined. Follow-up on current diagnosis of SZ and resp iratory failure. No overnight events reported to me but having seizures and diprivan ordered. Imaging, nursing note, chart, labs and old chart reviewed. Discussed with nursing Hospitalist Physical - Physical exam Narrative exam: Gen: ill appearing, cachetic, intubated HEENT: >with head laceration, EOMI, Intubated with ETT in place Neck: supple, no adenopathy, no thyromegaly, no JVD CVS/Heart: RRR, normal S1S2, pulses present bilaterally Chest/Lungs: CTA B, Symmetrical chest expansion, good air entry bilaterally GI/Abdomen: soft, NTND, good bowel sounds, no guarding or rebound /Bladder: no suprapubic tenderness, no CVA or paraspinal tenderness Extermity/Skin: no c/c/e, no obvious rash MSK: sedated Neuro: sedated Psych: sedated - Constitutional Vitals: Temp Pulse Resp BP Pulse Ox 98.0 F 111 H 17 111/78 100 09/10/18 04:00 09/10/18 06:00 09/10/18 06:00 09/10/18 06:00 09/10/18 05:50 Results - Labs CBC & Chem 7: 09/10/18 10:34 09/08/18 13:04 Labs: Laboratory Last Values WBC 13.7 K/mm3 (4.5-11.0) H 09/08/18 13:04 RBC 4.67 M/mm3 (3.65-5.03) 09/08/18 13:04 Hgb 14.1 gm/dl (11.8-15.2) 09/08/18 13:04 Hct 43.6 % (35.5-45.6) 09/08/18 13:04 MCV 93 fl (84-94) 09/08/18 13:04 MCH 30 pg (28-32) 09/08/18 13:04 MCHC 32 % (32-34) 09/08/18 13:04 RDW 13.7 % (13.2-15.2) 09/08/18 13:04 Plt Count 188 K/mm3 (140-440) 09/08/18 13:04 Lymph # Drawing Frame Tender 09/08/18 13:04 Add Manual Diff Complete 09/08/18 13:04 Total Counted 100 09/08/18 13:04 Seg Neuts % (Manual) 54.0 % (40.0-70.0) 09/08/18 13:04 0 % 09/08/18 13:04 39.0 % (13.4-35.0) H 09/08/18 13:04 Reactive Lymphs % (Man) 0 % 09/08/18 13:04 5.0 % (0.0-7.3) 09/08/18 13:04 2.0 % (0.0-4.3) 09/08/18 13:04 0 % (0.0-1.8) 09/08/18 13:04 0 % 09/08/18 13:04 0 % 09/08/18 13:04 0 % 09/08/18 13:04 0 % 09/08/18 13:04 Nucleated RBC % Not Reportable 09/08/18 13:04 Seg Neutrophils # Man 7.4 K/mm3 (1.8-7.7) 09/08/18 13:04 Band Neutrophils # 0.0 K/mm3 09/08/18 13:04 5.3 K/mm3 (1.2-5.4) 09/08/18 13:04 Abs React Lymphs (Man) 0.0 K/mm3 09/08/18 13:04 0.7 K/mm3 (0.0-0.8) 09/08/18 13:04 0.3 K/mm3 (0.0-0.4) 09/08/18 13:04 0.0 K/mm3 (0.0-0.1) 09/08/18 13:04 0.0 K/mm3 09/08/18 13:04 0.0 K/mm3 09/08/18 13:04 0.0 K/mm3 09/08/18 13:04 Blast Cells # 0.0 K/mm3 09/08/18 13:04 WBC Morphology Not Reportable 09/08/18 13:04 Hypersegmented Neuts Not Reportable 09/08/18 13:04 Hyposegmented Neuts Not Reportable 09/08/18 13:04 Hypogranular Neuts Not Reportable 09/08/18 13:04 Not Reportable 09/08/18 13:04 Not Reportable 09/08/18 13:04 Not Reportable 09/08/18 13:04 Not Reportable 09/08/18 13:04 Not Reportable 09/08/18 13:04 Not Reportable 09/08/18 13:04 Consistent w auto 09/08/18 13:04 Not Reportable 09/08/18 13:04 Plt Clumps, EDTA Not Reportable 09/08/18 13:04 Not Reportable 09/08/18 13:04 Not Reportable 09/08/18 13:04 Not Reportable 09/08/18 13:04 Plt Morphology Comment Not Reportable 09/08/18 13:04 RBC Morphology Not Reportable 09/08/18 13:04 Dimorphic RBCs Not Reportable 09/08/18 13:04 Not Reportable 09/08/18 13:04 Not Reportable 09/08/18 13:04 Few 09/08/18 13:04 Few 09/08/18 13:04 Not Reportable 09/08/18 13:04 Not Reportable 09/08/18 13:04 Not Reportable 09/08/18 13:04 Not Reportable 09/08/18 13:04 Not Reportable 09/08/18 13:04 Not Reportable 09/08/18 13:04 Not Reportable 09/08/18 13:04 Not Reportable 09/08/18 13:04 Not Reportable 09/08/18 13:04 Not Reportable 09/08/18 13:04 Not Reportable 09/08/18 13:04 Not Reportable 09/08/18 13:04 Not Reportable 09/08/18 13:04 Not Reportable 09/08/18 13:04 Not Reportable 09/08/18 13:04 Acanthocytes (Spur) Not Reportable 09/08/18 13:04 Rouleaux Not Reportable 09/08/18 13:04 Not Reportable 09/08/18 13:04 Not Reportable 09/08/18 13:04 Not Reportable 09/08/18 13:04 Not Reportable 09/08/18 13:04 Hem Pathologist Commnt No 09/08/18 13:04 POC ABG pH 7.419 (7.35-7.45) 09/10/18 04:17 POC ABG pCO2 33.6 (35-45) L 09/10/18 04:17 POC ABG pO2 124 (80-105) H 09/10/18 04:17 POC ABG HCO3 21.7 (22-26 mml/L) 09/10/18 04:17 POC ABG Total CO2 23 (23-27mmol/L) 09/10/18 04:17 POC ABG O2 Sat 99 09/10/18 04:17 POC ABG Base Excess -3 ((-2) - (+3)mmol/L) 09/10/18 04:17 35 % 09/10/18 04:17 Sodium 141 mmol/L (137-145) 09/08/18 13:04 Potassium 3.9 mmol/L (3.6-5.0) 09/08/18 13:04 Chloride 101.6 mmol/L (98-107) 09/08/18 13:04 Carbon Dioxide 15 mmol/L (22-30) L 09/08/18 13:04 28 mmol/L 09/08/18 13:04 BUN 11 mg/dL (9-20) 09/08/18 13:04 1.3 mg/dL (0.8-1.5) 09/08/18 13:04 Estimated GFR > 60 ml/min 09/08/18 13:04 8 % 09/08/18 13:04 Glucose 86 mg/dL (75-100) 09/08/18 13:04 Calcium 9.6 mg/dL (8.4-10.2) 09/08/18 13:04 0.20 mg/dL (0.1-1.2) 09/08/18 13:04 AST 27 units/L (5-40) 09/08/18 13:04 ALT 10 units/L (7-56) 09/08/18 13:04 64 units/L (35-129) 09/08/18 13:04 109 units/L (55-170) 09/08/18 13:04 7.0 g/dL (6.3-8.2) 09/08/18 13:04 3.9 g/dL (3.9-5) 09/08/18 13:04 1.3 % 09/08/18 13:04 TSH 3.820 mlU/mL (0.270-4.200) 09/09/18 11:50 Free T4 1.22 ng/dL (0.76-1.46) 09/09/18 11:50 Yellow (Yellow) 09/08/18 15:20 Slightly-cloudy (Clear) 09/08/18 15:20 5.0 (5.0-7.0) 09/08/18 15:20 Ur Specific [place]ude 1.009 (1.003-1.030) 09/08/18 15:20 <15 mg/dl mg/dL (Negative) 09/08/18 15:20 Neg mg/dL (Negative) 09/08/18 15:20 Neg mg/dL (Negative) 09/08/18 15:20 Neg (Negative) 09/08/18 15:20 Neg (Negative) 09/08/18 15:20 Neg (Negative) 09/08/18 15:20 < 2.0 mg/dL (<2.0) 09/08/18 15:20 Ur Leukocyte Esterase Neg (Negative) 09/08/18 15:20 1.0 /HPF (0.0-6.0) 09/08/18 15:20 3.0 /HPF (0.0-6.0) 09/08/18 15:20 U Epithel Cells (Auto) < 1.0 /HPF (0-13.0) 09/08/18 15:20 Hyaline Casts 1 /LPF 09/08/18 15:20 Few /HPF 09/08/18 15:20 Presumptive negative 09/08/18 15:21 Presumptive negative 09/08/18 15:21 Ur Barbiturates Screen Presumptive negative 09/08/18 15:21 Ur Phencyclidine Scrn Presumptive negative 09/08/18 15:21 Ur Amphetamines Screen Presumptive negative 09/08/18 15:21 U Benzodiazepines Scrn Presumptive positive 09/08/18 15:21 Presumptive negative 09/08/18 15:21 U Marijuana (THC) Screen Presumptive negative 09/08/18 15:21 Disclamer 09/08/18 15:21 Plasma/Serum Alcohol < 0.01 % (0-0.07) 09/08/18 13:04 Active Medications - Current Medications Current Medications: Generic Name Dose Route Start Last Admin Trade Name Freq PRN Reason Stop Dose Admin Albuterol 2.5 mg 09/09/18 07:28 Proventil IH Q4HRT PRN Shortness Of Breath Albuterol/Ipratropium 1 ampul 09/09/18 08:00 09/09/18 19:32 Duoneb *Not For Prn Use* IH 1 ampul QIDRT BALDEMAR Administration Lipase/Protease/Amylase 1 each 09/09/18 16:12 Pancrekingsley Rodriguez 10,500 Unit FEEDTUBE PRN PRN For Clogged Feeding Tube Enoxaparin Sodium 40 mg 09/09/18 22:00 09/09/18 21:42 Lovenox SUB-Q 40 mg QDAY@2200 BALDEMAR Administration Haloperidol Lactate 5 mg 09/10/18 02:46 09/10/18 02:49 Haldol IV 5 mg Q6H PRN Administration Agitation Hydrophilic Ointment 1 applic 09/08/18 13:00 Vaseline Lip Therapy TP Q2HR PRN Dry Lips Midazolam HCl 100 mg/ Sodium 100 mls @ 2 mls/hr 09/08/18 14:00 09/09/18 15:25 Chloride IV 0 mg/hr TITR BALDEMAR 0 mls/hr Titration Protocol 2 MG/HR Fentanyl Citrate 2,000 mcg in 100 mls @ 3.2 mls/hr 09/08/18 15:00 09/09/18 13:25 Fentanyl Drip Premix IV 0 mcg/kg/hr TITR BALDEMAR 0 mls/hr Titration Protocol 1 MCG/KG/HR Levetiracetam 750 mg/ Dextrose 107.5 mls @ 400 mls/hr 09/08/18 23:00 09/09/18 21:41 IV 400 mls/hr Q12HR BALDEMAR Administration Ceftriaxone Sodium 2 gm in 100 mls @ 200 mls/hr 09/09/18 07:28 09/09/18 09:03 Rocephin/Ns 2 Gm/100 Ml IV 200 mls/hr Q24HR BALDEMAR Administration Protocol Lorazepam 2 mg 09/09/18 19:42 09/10/18 06:00 Ativan IV 2 mg Q4H PRN Administration Agitation Lorazepam 2 mg 09/10/18 07:51 Ativan IV 09/10/18 08:51 ONCE NR Midazolam HCl 2 mg 09/08/18 13:00 Versed IV Q10MIN PRN Sedation Multi-Ingred Cream/Lotion/Oil/Oint 1 applic 09/08/18 13:00 Artificial Tears Ophth Oint OU Q4HR PRN Dry Eye(s) Simple Syrup 15 ml 09/09/18 16:12 Simple Syrup FEEDTUBE PRN PRN Hypoglycemia Simple Syrup 30 ml 09/09/18 16:12 Simple Syrup FEEDTUBE PRN PRN Hypoglycemia Sodium Bicarbonate 325 mg 09/09/18 16:12 Sodium Bicarbonate FEEDTUBE PRN PRN For Clogged Feeding Tube Nutrition/Malnutrition Assess - Dietary Evaluation Nutrition/Malnutrition Findings: Nutrition Notes Start: 09/09/18 16:04 Freq: Status: Active Protocol: Document 09/09/18 16:04 RM (Rec: 09/09/18 16:12 RM [id number]) Nutrition Notes Need for Assessment generated from: MD Order Initial or Follow up Assessment Current Diagnosis COPD,Respiratory Failure Other Pertinent Diagnosis Dementia,Status epilepticus, laceration,acute encephalopathy,SIRS,Head traum Current Diet NPO Labs/Tests Reviewed Pertinent Medications Reviewed Height 5 ft 8 in Weight 64 kg [place] Body Weight (kg) 70.00 BMI 21.4 Subjective/Other Information Consulted for evaluated nutritional intake. Pt from NH and on vent. Burn Absent Trauma Absent #1 Nutrition Diagnosis Inadequate oral intake Etiology on vent As Evidenced by Signs and Symptoms NPO status Is patient on ventilator? Yes Is Patient Ambulatory and/or Out of Bed No REE-([facility]-confined to bed) 1661.256 Calculation Used for Recommendations [facility] Additional Notes Protein Needs: 77-128g (1.2-2g /kg) Fluid Needs: 1 ml/kcal Nutrition Intervention Nutrition Support: Vital 1.2 at 60 ml/hr. Water flush of 100 mls q 4 hrs . Kcal 1,728 Protein (gm) 108 Fluid (mL) 1,168 Goal #1 TF tolernace Goal #2 Meet at least 80% of calorie and protein needs via TF Anticipated Discharge Needs: Unable to determine at this time Follow-Up By: 09/11/18 Additional Comments Follow for TF tolerance
--- NOTE | 2018-09-10 08:35 | XRay Report ---
PROCEDURE: XR CHEST 1V AP TECHNIQUE: Chest radiograph single view. HISTORY: follow up respiratory failure COMPARISONS: SeptemberApril 11, 2018 FINDINGS: Left upper extremity PICC is unchanged. Endotracheal tube terminates approximately 5 cm from the john na. No mediastinal shift. Cardiac silhouette is not enlarged. No pneumothorax, effusion, or focal air space disease identified. IMPRESSION: Satisfactory appearance of the patient's support apparatus without pneumothorax or significant change compared to 09/09/2018. This document is electronically signed by Luther Reis MD., September 10 2018 08:33:05 AM ET
[2018-09-10] MEDS: DUONEB *Not for PRN Use IH SCH ×4 (08:50→20:04)
[2018-09-10] MEDS ORDERED: VANCOMYCIN PHARMACY TO DOSE IV SCH (09:00)
[2018-09-10] MEDS ORDERED: VANCOMYCIN/NS 1 GM/250 ML 1 GM/250 ML BAG IV SCH (09:00)
[2018-09-10] MEDS ORDERED: VANCOMYCIN 1,250 MG in NACL 0.9% 250ML 250 ML IV ONE (09:00)
[2018-09-10] MEDS: DIPRIVAN 10 MG/ML 1,000 MG/100 ML BOTTLE IV SCH ×2 (09:46→21:12)
[2018-09-10] MEDS: ROCEPHIN/NS 2 GM/100 ML 2 GM/100 ML BAG IV SCH (09:46)
[2018-09-10 11:50] LABS: Hematocrit 36.6 % (35.5-45.6); Hemoglobin 12.3 gm/dl (11.8-15.2); Mean Corpuscular HGB Conc 34 % (32-34); Mean Corpuscular Volume 91 fl (84-94); Platelet Count 125 K/mm3 (140-440); Red Blood Count 4.01 M/mm3 (3.65-5.03); Red Cell Distribution Width 13.4 % (13.2-15.2)
[2018-09-10 12:07] LABS: Calcium 8.6 mg/dL (8.4-10.2)
--- NOTE | 2018-09-10 12:26 | XRay Report ---
PROCEDURE: XR ABDOMEN 1V AP TECHNIQUE: Abdominal radiograph, single view. HISTORY: ngt placement confirmation COMPARISONS: None . FINDINGS: Bowel gas pattern: Nonobstructive . Masses or calcifications: None . Bony structures: No significant abnormality . Other: Weighted enteric tube with tip in the stomach . IMPRESSION: Weighted enteric tube with tip in the stomach. This document is electronically signed by Pat Alvares MD., September 10 2018 12:25:15 PM ET
--- NOTE | 2018-09-10 16:41 | Consultation ---
History of Present Illness - Reason for Consult Consult date: 09/10/18 Staph pneumonia Requesting physician: HARINDER ECKERT - History of Present Illness 67 y/o male with history of COPD, seizure disorder due to prior ETOH abuse, CKD 3 and dementia admitted on 09/08/2018 due [facility] EMS arrival, patient was combative and received versed becoming unresponsive and low O2 sats, initially placed on non invasive then intubated. Patient is currently intubated unable to provide medical history. ID consulted for possible MRSA pneumonia. In the ED, temp 98.3, HR 119, R 20, O2 sat 98, BP 103/66. WBC 13.7. Creat 1.3. UDS +benzos. CXR x [address] head negative. CT cervical spine negative. Sputum 09/09/2018 Staph aureus. Sputum 09/10/2018 pending. Review of Systems: unble to obtain Past History Past Medical History: other (unable to obtain from patient but apparently has psych history and history of seizures) Past Surgical History: Other (unable to obtain) Social history: other (unable to obtain) Family history: other (unable to obtain) Medications and Allergies Allergies Allergy/AdvReac Type Severity Reaction Status Date / Time No Known Allergies Allergy Verified 03/21/13 23:55 Home Medications Medication Instructions Recorded Confirmed Last Taken Type Citalopram [celeXA] 10 mg PO QDAY #30 tablet 06/28/15 09/08/18 Unknown Rx Folic Acid [Folvite] 1 mg PO QDAY #30 tablet 06/28/15 09/08/18 Unknown Rx Isoniazid 300 mg PO QDAY #30 tablet 06/28/15 09/08/18 Unknown Rx Pyridoxine [Vitamin B-6 50MG TAB] 50 mg PO DAILY #30 tablet 06/28/15 09/08/18 Unknown Rx Thiamine [Vitamin B-1] 100 mg PO QDAY #30 tablet 06/28/15 09/08/18 Unknown Rx LORazepam [Ativan INJ] 0.5 mg IM Q8H PRN 09/08/18 09/08/18 Unknown History LORazepam [Ativan] 0.25 mg PO DAILY 09/08/18 09/08/18 Unknown History Lacosamide [Vimpat] 200 mg PO Q12H 09/08/18 09/08/18 Unknown History Memantine HCl [Namenda] 10 mg PO QAM&QHS 09/08/18 09/08/18 Unknown History Mirtazapine 7.5 mg PO HS 09/08/18 09/08/18 Unknown History Active Meds: Active Medications Albuterol (Proventil) 2.5 mg IH Q4HRT PRN PRN Reason: Shortness Of Breath Albuterol/Ipratropium (Duoneb *Not For Prn Use*) 1 ampul IH QIDRT BALDEMAR Last Admin: 09/10/18 13:55 Dose: 1 ampul Documented by: Lipase/Protease/Amylase (Aida Rodriguez 10,500 Unit) 1 each FEEDTUBE PRN PRN PRN Reason: For Clogged Feeding Tube Enoxaparin Sodium (Lovenox) 40 mg SUB-Q QDAY@2200 [facility] Last Admin: 09/09/18 21:42 Dose: 40 mg Documented by: Haloperidol Lactate (Haldol) 5 mg IV Q6H PRN PRN Reason: Agitation Last Admin: 09/10/18 02:49 Dose: 5 mg Documented by: Hydrophilic Ointment (Vaseline Lip Therapy) 1 applic TP Q2HR PRN PRN Reason: Dry Lips Midazolam HCl 100 mg/ Sodium (Chloride) 100 mls @ 2 mls/hr IV TITR BALDEMAR; Protocol Last Titration: 09/09/18 15:25 Dose: 0 mg/hr, 0 mls/hr Documented by: Fentanyl Citrate (Fentanyl Drip Premix) 2,000 mcg in 100 mls @ 3.2 mls/hr IV TITR BALDEMAR; Protocol Last Titration: 09/09/18 13:25 Dose: 0 mcg/kg/hr, 0 mls/hr Documented by: Levetiracetam 750 mg/ Dextrose 107.5 mls @ 400 mls/hr IV Q12HR BALDEMAR Last Admin: 09/10/18 08:00 Dose: 400 mls/hr Documented by: Ceftriaxone Sodium (Rocephin/Ns 2 Gm/100 Ml) 2 gm in 100 mls @ 200 mls/hr IV Q24HR BALDEMAR; Protocol Last Admin: 09/10/18 09:46 Dose: 200 mls/hr Documented by: Propofol (Diprivan 10 Mg/Ml) 1,000 mg in 100 mls @ 1.92 mls/hr IV TITR BALDEMAR; Protocol Last Titration: 09/10/18 14:24 Dose: 20 mcg/kg/min, 7.68 mls/hr Documented by: Vancomycin HCl (Vancomycin/Ns 1 Gm/250 Ml) 1 gm in 250 mls @ 166.667 mls/hr IV Q24H BALDEMAR Lorazepam (Ativan) 2 mg IV Q4H PRN PRN Reason: Agitation Last Admin: 09/10/18 06:00 Dose: 2 mg Documented by: Midazolam HCl (Versed) 2 mg IV Q10MIN PRN PRN Reason: Sedation Multi-Ingred Cream/Lotion/Oil/Oint (Artificial Tears Ophth Oint) 1 applic OU Q4HR PRN PRN Reason: Dry Eye(s) Simple Syrup (Simple Syrup) 15 ml FEEDTUBE PRN PRN PRN Reason: Hypoglycemia Simple Syrup (Simple Syrup) 30 ml FEEDTUBE PRN PRN PRN Reason: Hypoglycemia Sodium Bicarbonate (Sodium Bicarbonate) 325 mg FEEDTUBE PRN PRN PRN Reason: For Clogged Feeding Tube Physical Examination - Physical Exam Narrative exam: General appearance: sedated on the vent fiO2 28% p 6 Eyes: anicteric sclerae, moist conjunctivae; no lid-lag; PERRLA HENT: Atraumatic; oropharynx+ETT +NGT Neck: Trachea midline; supple, no thyromegaly or lymphadenopathy Lungs: CTA CV: tachycardia Abdomen: Soft, non-tender; no masses or hepatosplenomegaly Extremities: extensive right lateral forefoot necrotic changes and devitalized tissue Skin: Normal temperature, turgor and texture; no rash, ulcers or subcutaneous nodules Psych: no agitated. Neuro: sedated - Constitutional Vitals: Vital Signs Temp Pulse Resp BP Pulse Ox 98.8 F 114 H 19 113/78 100 09/10/18 12:00 09/10/18 15:00 09/10/18 15:00 09/10/18 15:00 09/10/18 15:00 Temperature -Last 24 Hours Temperature 98.8 F Temperature 99.1 F Temperature 98.0 F Temperature 98.0 F Temperature 97.9 F Temperature 98.5 F Results - Labs CBC & Chem 7: 09/10/18 10:34 09/10/18 10:34 Labs: Abnormal lab results 09/10/18 09/10/18 09/10/18 Range/Units 00:43 04:17 10:34 WBC 21.2 H (4.5-11.0) K/mm3 Plt Count 125 L (140-440) K/mm3 POC ABG pH 7.306 L (7.35-7.45) POC ABG pCO2 49.4 H 33.6 L (35-45) POC ABG pO2 112 H 124 H (80-105) Sodium (137-145) mmol/L Carbon Dioxide (22-30) mmol/L Glucose (75-100) mg/dL POC Glucose (70-105) 09/10/18 09/10/18 Range/Units 10:34 11:41 WBC (4.5-11.0) K/mm3 Plt Count (140-440) K/mm3 POC ABG pH (7.35-7.45) POC ABG pCO2 (35-45) POC ABG pO2 (80-105) Sodium 136 L (137-145) mmol/L Carbon Dioxide 21 L (22-30) mmol/L Glucose 109 H (75-100) mg/dL POC Glucose 107 H (70-105) Assessment and Plan Cultures: Sputum 09/09/2018 Staph aureus. Sputum 09/10/2018 pending. Assessment: 1) SIRS: present on admission with tachycardia, leukocytosis, noted later low grade fever, etiology unclear. UA negative. CXR x 3 no consolidations. ? early pneumonia +/- status epilepticus. 2) Sputum with Staph aureus: CXR x 3 no consolidations, +emphysema changes. ? early pneumonia v/s lung colonization, sputum growing Staph is a poor specimen. 3) Acute respiratory failure: intubated 4) Status Epilepticus 5) Acute encephalopathy: from seizures Recommendations: - follow-up repeat sputum culture - continue ceftriaxone and vancomycin with PK consult keep trough 10-15, however if repeat CXR does not evidence pneumonia consider stopping all antibiotics. Ceftriaxone has been reported as a rare cause of status epilepticus. - obtain blood cultures x 2 sets - obtain procalcitonin - check MRSA PCR screening - contact isolation for now until MRSA is ruled out Will follow. Naomi Ramos MD Infectious Diseases [employer] [facility] ([facility] M [phone] O [phone]
[2018-09-10] MEDS: D5W 1,000 ML IV SCH (18:03)
[2018-09-10] MEDS ORDERED: TYLENOL FEEDTUBE PRN (21:07)
[2018-09-10] MEDS: LOVENOX SUB-Q SCH (21:20)
[2018-09-11] MEDS: DIPRIVAN 10 MG/ML 1,000 MG/100 ML BOTTLE IV SCH ×2 (02:10→17:34)
--- NOTE | 2018-09-11 03:18 | XRay Report ---
PROCEDURE: XR CHEST 1V AP TECHNIQUE: Chest radiograph single view. HISTORY: follow up respiratory failure COMPARISONS: None . FINDINGS: Heart: Normal. Mediastinum/Vessels: Normal. Lungs/Pleural space: Mild chronic obstructive pulmonary changes. No consolidation or effusion. No pn eumothorax. Bony thorax: No acute osseous abnormality. Life support devices: The nasogastric tube ends below the hemidiaphragms. A left PICC catheter ends i n the SVC. IMPRESSION: Mild COPD. No acute consolidation or effusion. The nasogastric tube and left PICC cathet er are properly positioned. This document is electronically signed by Pauline Felix DO., September 11 2018 03:16:47 AM ET
[2018-09-11 05:32] LABS: Hematocrit 33.8 % (35.5-45.6); Hemoglobin 11.4 gm/dl (11.8-15.2); Mean Corpuscular HGB Conc 34 % (32-34); Mean Corpuscular Volume 92 fl (84-94); Platelet Count 110 K/mm3 (140-440); Red Blood Count 3.69 M/mm3 (3.65-5.03); Red Cell Distribution Width 13.5 % (13.2-15.2)
[2018-09-11 05:52] LABS: BUN/Creatinine Ratio 10; Blood Urea Nitrogen 14 mg/dL (9-20); Calcium 8.7 mg/dL (8.4-10.2); Hemolysis Index 3
[2018-09-11] MEDS: D5W 1,000 ML IV SCH ×2 (06:11→21:50)
--- NOTE | 2018-09-11 06:24 | Event Note ---
Date: 09/11/18 BIN Hilario called with critical lab Potassium 3.2; Ordered IV potassium chloride 40Meq, magnesium and phosphorus lab.
[2018-09-11] MEDS: KCL 10MEQ/100ML 10 MEQ/100 ML BAG IV SCH ×4 (06:36→10:06)
--- NOTE | 2018-09-11 07:13 | Progress Note ---
Assessment and Plan Assessment and plan: Patient is a 67 yo man from [facility] with a history of Advance Dementia, COPD, Anxiety disorder, Seizure disorder due to prior ETOH abuse, gout and CKD 3 who presented to [facility] ED after seizure and fall resulting in patient hitting his head on the floor causing laceration followed by agitation. There is report of him being non-compliant with meds at the [facility]. He was combative en route to hospital and EMS gave him Versed. He was sedaged and unresponsive with pulse ox of only 85% on Nonrebreather 100% O2 mask. He was subsequently intubated by Dr. Clemente and admitted to the ICU. Patient was extubated on 09.09.18 around 8pm but had to be re-intubated around 9:30pm. It appears patient may had a mucus plug. Also, once sedation stopped the seizure continued. EEG ordered. Staph aureus growing out trach culture, started IV Vancomycin 09/10/18. EEG and neurology consult pending. * CT head wo contrast IMPRESSION: No acute intracranial abnormality. No change. * pCXR IMPRESSION: Slight atelectasis and mild effusion left lower lung. * CT cervical spine wo contrast IMPRESSION: 1. No evidence of fracture or subluxation. 2. Cervical spondylosis with multiple level canal and foraminal stenosis. If further imaging is required, MRI may be helpful. 3. Pulmonary emphysema. Status Epilepticus: treat with IV keppra, on sedation, consult Neurology when available, EEG Acute respiratory failure s/p ETT MV: daily weaning, MV monitoring, O2 monitoring, Consult CCM, input noted Suspect MRSA pneumonia: started iv vancomycin, consulted ID input noted, follow sputum/trach cultures Acute encephalopathy due to the above, poa SIRS with organ dysfunction, poa, initial wbc 13.7 with right shift, normal h/h/plt Urinary Retention, Prasad in place, which was removed, then re-inserted on 09/10/18 (i believe) for urinary retention Head trauma s/p seizure syncopal fall: local wound care Acidosis resolved, carbon dioxide level 15 normal Cr 1.5 Elevated TSH 12.130 with normal Free T4 of 1.07, subclinical vs critical illness rxn UDS positive for Benzodiazepines, normal serum alcohol Hypokalemia: replete and recheck bmp with magnesium in AM DVT ppx on sq lovenox full code Restraints renewed Rn called me with continued seizure, I ordered 2mg iv ativan and re-start Versed drip; if doesn't work then add fosphenytoin IV drip CCT 31 minutes History Interval history: Patient was seen and examined. Follow-up on current diagnosis of SZ and respiratory failure. No overnight events reported to me. Imaging, nursing note, chart, labs and old chart reviewed. Discussed with nursing Hospitalist Physical - Physical exam Narrative exam: Gen: ill appearing, cachetic, intubated HEENT: >with head laceration, EOMI, Intubated with ETT in place Neck: supple, no adenopathy, no thyromegaly, no JVD CVS/Heart: RRR, normal S1S2, pulses present bilaterally Chest/Lungs: CTA B, Symmetrical chest expansion, good air entry bilaterally GI/Abdomen: soft, NTND, good bowel sounds, no guarding or rebound /Bladder: no suprapubic tenderness, no CVA or paraspinal tenderness Extermity/Skin: no c/c/e, no obvious rash MSK: sedated Neuro: sedated Psych: sedated - Constitutional Vitals: Temp Pulse Resp BP Pulse Ox 97.6 F 82 14 90/55 98 09/11/18 04:00 09/11/18 07:00 09/11/18 07:00 09/11/18 07:00 09/11/18 07:00 Results - Labs CBC & Chem 7: 09/11/18 05:05 09/11/18 05:05 Labs: Laboratory Last Values WBC 17.0 K/mm3 (4.5-11.0) H 09/11/18 05:05 RBC 3.69 M/mm3 (3.65-5.03) 09/11/18 05:05 Hgb 11.4 gm/dl (11.8-15.2) L 09/11/18 05:05 Hct 33.8 % (35.5-45.6) L 09/11/18 05:05 MCV 92 fl (84-94) 09/11/18 05:05 MCH 31 pg (28-32) 09/11/18 05:05 MCHC 34 % (32-34) 09/11/18 05:05 RDW 13.5 % (13.2-15.2) 09/11/18 05:05 Plt Count 110 K/mm3 (140-440) L 09/11/18 05:05 Lymph # [employer] 09/08/18 13:04 Add Manual Diff Complete 09/08/18 13:04 Total Counted 100 09/08/18 13:04 Seg Neuts % (Manual) 54.0 % (40.0-70.0) 09/08/18 13:04 0 % 09/08/18 13:04 39.0 % (13.4-35.0) H 09/08/18 13:04 Reactive Lymphs % (Man) 0 % 09/08/18 13:04 5.0 % (0.0-7.3) 09/08/18 13:04 2.0 % (0.0-4.3) 09/08/18 13:04 0 % (0.0-1.8) 09/08/18 13:04 0 % 09/08/18 13:04 0 % 09/08/18 13:04 0 % 09/08/18 13:04 0 % 09/08/18 13:04 Nucleated RBC % Not Reportable 09/08/18 13:04 Seg Neutrophils # Man 7.4 K/mm3 (1.8-7.7) 09/08/18 13:04 Band Neutrophils # 0.0 K/mm3 09/08/18 13:04 5.3 K/mm3 (1.2-5.4) 09/08/18 13:04 Abs React Lymphs (Man) 0.0 K/mm3 09/08/18 13:04 0.7 K/mm3 (0.0-0.8) 09/08/18 13:04 0.3 K/mm3 (0.0-0.4) 09/08/18 13:04 0.0 K/mm3 (0.0-0.1) 09/08/18 13:04 0.0 K/mm3 09/08/18 13:04 0.0 K/mm3 09/08/18 13:04 0.0 K/mm3 09/08/18 13:04 Blast Cells # 0.0 K/mm3 09/08/18 13:04 WBC Morphology Not Reportable 09/08/18 13:04 Hypersegmented Neuts Not Reportable 09/08/18 13:04 Hyposegmented Neuts Not Reportable 09/08/18 13:04 Hypogranular Neuts Not Reportable 09/08/18 13:04 Not Reportable 09/08/18 13:04 Not Reportable 09/08/18 13:04 Not Reportable 09/08/18 13:04 Not Reportable 09/08/18 13:04 Not Reportable 09/08/18 13:04 Not Reportable 09/08/18 13:04 Consistent w auto 09/08/18 13:04 Not Reportable 09/08/18 13:04 Plt Clumps, EDTA Not Reportable 09/08/18 13:04 Not Reportable 09/08/18 13:04 Not Reportable 09/08/18 13:04 Not Reportable 09/08/18 13:04 Plt Morphology Comment Not Reportable 09/08/18 13:04 RBC Morphology Not Reportable 09/08/18 13:04 Dimorphic RBCs Not Reportable 09/08/18 13:04 Not Reportable 09/08/18 13:04 Not Reportable 09/08/18 13:04 Few 09/08/18 13:04 Few 09/08/18 13:04 Not Reportable 09/08/18 13:04 Not Reportable 09/08/18 13:04 Not Reportable 09/08/18 13:04 Not Reportable 09/08/18 13:04 Not Reportable 09/08/18 13:04 Not Reportable 09/08/18 13:04 Not Reportable 09/08/18 13:04 Not Reportable 09/08/18 13:04 Not Reportable 09/08/18 13:04 Not Reportable 09/08/18 13:04 Not Reportable 09/08/18 13:04 Not Reportable 09/08/18 13:04 Not Reportable 09/08/18 13:04 Not Reportable 09/08/18 13:04 Not Reportable 09/08/18 13:04 Acanthocytes (Spur) Not Reportable 09/08/18 13:04 Rouleaux Not Reportable 09/08/18 13:04 Not Reportable 09/08/18 13:04 Not Reportable 09/08/18 13:04 Not Reportable 09/08/18 13:04 Not Reportable 09/08/18 13:04 Hem Pathologist Commnt No 09/08/18 13:04 POC ABG pH 7.462 (7.35-7.45) H 09/11/18 04:57 POC ABG pCO2 31.2 (35-45) L 09/11/18 04:57 POC ABG pO2 109 (80-105) H 09/11/18 04:57 POC ABG HCO3 22.3 (22-26 mml/L) 09/11/18 04:57 POC ABG Total CO2 23 (23-27mmol/L) 09/11/18 04:57 POC ABG O2 Sat 99 09/11/18 04:57 POC ABG Base Excess -1 ((-2) - (+3)mmol/L) 09/11/18 04:57 28 % 09/11/18 04:57 Sodium 134 mmol/L (137-145) L 09/11/18 05:05 Potassium 3.2 mmol/L (3.6-5.0) L 09/11/18 05:05 Chloride 97.5 mmol/L (98-107) L 09/11/18 05:05 Carbon Dioxide 25 mmol/L (22-30) 09/11/18 05:05 15 mmol/L 09/11/18 05:05 BUN 14 mg/dL (9-20) 09/11/18 05:05 1.4 mg/dL (0.8-1.5) 09/11/18 05:05 Estimated GFR > 60 ml/min 09/11/18 05:05 10 % 09/11/18 05:05 Glucose 144 mg/dL (75-100) H 09/11/18 05:05 POC Glucose 146 (70-105) H 09/11/18 06:54 Calcium 8.7 mg/dL (8.4-10.2) 09/11/18 05:05 0.20 mg/dL (0.1-1.2) 09/08/18 13:04 AST 27 units/L (5-40) 09/08/18 13:04 ALT 10 units/L (7-56) 09/08/18 13:04 64 units/L (35-129) 09/08/18 13:04 109 units/L (55-170) 09/08/18 13:04 7.0 g/dL (6.3-8.2) 09/08/18 13:04 3.9 g/dL (3.9-5) 09/08/18 13:04 1.3 % 09/08/18 13:04 TSH 3.820 mlU/mL (0.270-4.200) 09/09/18 11:50 Free T4 1.22 ng/dL (0.76-1.46) 09/09/18 11:50 Yellow (Yellow) 09/08/18 15:20 Slightly-cloudy (Clear) 09/08/18 15:20 5.0 (5.0-7.0) 09/08/18 15:20 Ur Specific [place] 1.009 (1.003-1.030) 09/08/18 15:20 <15 mg/dl mg/dL (Negative) 09/08/18 15:20 Neg mg/dL (Negative) 09/08/18 15:20 Neg mg/dL (Negative) 09/08/18 15:20 Neg (Negative) 09/08/18 15:20 Neg (Negative) 09/08/18 15:20 Neg (Negative) 09/08/18 15:20 < 2.0 mg/dL (<2.0) 09/08/18 15:20 Ur Leukocyte Esterase Neg (Negative) 09/08/18 15:20 1.0 /HPF (0.0-6.0) 09/08/18 15:20 3.0 /HPF (0.0-6.0) 09/08/18 15:20 U Epithel Cells (Auto) < 1.0 /HPF (0-13.0) 09/08/18 15:20 Hyaline Casts 1 /LPF 09/08/18 15:20 Few /HPF 09/08/18 15:20 Presumptive negative 09/08/18 15:21 Presumptive negative 09/08/18 15:21 Ur Barbiturates Screen Presumptive negative 09/08/18 15:21 Ur Phencyclidine Scrn Presumptive negative 09/08/18 15:21 Ur Amphetamines Screen Presumptive negative 09/08/18 15:21 U Benzodiazepines Scrn Presumptive positive 09/08/18 15:21 Presumptive negative 09/08/18 15:21 U Marijuana (THC) Screen Presumptive negative 09/08/18 15:21 Disclamer 09/08/18 15:21 Plasma/Serum Alcohol < 0.01 % (0-0.07) 09/08/18 13:04 Active Medications - Current Medications Current Medications: Generic Name Dose Route Start Last Admin Trade Name Freq PRN Reason Stop Dose Admin Acetaminophen 650 mg 09/10/18 21:07 Tylenol FEEDTUBE Q6H PRN Fever >101, Mild Pain (1-3) Albuterol 2.5 mg 09/09/18 07:28 Proventil IH Q4HRT PRN Shortness Of Breath Albuterol/Ipratropium 1 ampul 09/09/18 08:00 09/10/18 20:04 Duoneb *Not For Prn Use* IH 1 ampul QIDRT BALDEMAR Administration Lipase/Protease/Amylase 1 each 09/09/18 16:12 Pancreaze 10,500 Unit FEEDTUBE PRN PRN For Clogged Feeding Tube Enoxaparin Sodium 40 mg 09/09/18 22:00 09/10/18 21:20 Lovenox SUB-Q 40 mg QDAY@2200 BALDEMAR Administration Haloperidol Lactate 5 mg 09/10/18 02:46 09/10/18 02:49 Haldol IV 5 mg Q6H PRN Administration Agitation Hydrophilic Ointment 1 applic 09/08/18 13:00 Vaseline Lip Therapy TP Q2HR PRN Dry Lips Midazolam HCl 100 mg/ Sodium 100 mls @ 2 mls/hr 09/08/18 14:00 09/09/18 15:25 Chloride IV 0 mg/hr TITR BALDEMAR 0 mls/hr Titration Protocol 2 MG/HR Fentanyl Citrate 2,000 mcg in 100 mls @ 3.2 mls/hr 09/08/18 15:00 09/09/18 13:25 Fentanyl Drip Premix IV 0 mcg/kg/hr TITR BALDEMAR 0 mls/hr Titration Protocol 1 MCG/KG/HR Levetiracetam 750 mg/ Dextrose 107.5 mls @ 400 mls/hr 09/08/18 23:00 09/10/18 21:20 IV 400 mls/hr Q12HR BALDEMAR Administration Ceftriaxone Sodium 2 gm in 100 mls @ 200 mls/hr 09/09/18 07:28 09/10/18 09:46 Rocephin/Ns 2 Gm/100 Ml IV 200 mls/hr Q24HR BALDEMAR Administration Protocol Propofol 1,000 mg in 100 mls @ 1.92 mls/hr 09/10/18 10:00 09/11/18 06:36 Diprivan 10 Mg/Ml IV 30 mcg/kg/min TITR BALDEMAR 11.52 mls/hr Titration Protocol 5 MCG/KG/MIN Vancomycin HCl 1 gm in 250 mls @ 166.667 mls/hr 09/11/18 10:00 Vancomycin/Ns 1 Gm/250 Ml IV Q24H BALDEMAR Dextrose 1,000 mls @ 75 mls/hr 09/10/18 18:00 09/11/18 06:11 D5w IV 75 mls/hr DIRECT BALDEMAR Administration Potassium Chloride 10 meq in 100 mls @ 100 mls/hr 09/11/18 07:00 09/11/18 06:36 Kcl 10meq/100ml IV 09/11/18 10:59 100 mls/hr Q1H BALDEMAR Administration Lorazepam 2 mg 09/09/18 19:42 09/10/18 06:00 Ativan IV 2 mg Q4H PRN Administration Agitation Midazolam HCl 2 mg 09/08/18 13:00 Versed IV Q10MIN PRN Sedation Multi-Ingred Cream/Lotion/Oil/Oint 1 applic 09/08/18 13:00 Artificial Tears Ophth Oint OU Q4HR PRN Dry Eye(s) Simple Syrup 15 ml 09/09/18 16:12 Simple Syrup FEEDTUBE PRN PRN Hypoglycemia Simple Syrup 30 ml 09/09/18 16:12 Simple Syrup FEEDTUBE PRN PRN Hypoglycemia Sodium Bicarbonate 325 mg 09/09/18 16:12 Sodium Bicarbonate FEEDTUBE PRN PRN For Clogged Feeding Tube Nutrition/Malnutrition Assess - Dietary Evaluation Nutrition/Malnutrition Findings: Nutrition Notes Start: 09/09/18 16:04 Freq: Status: Active Protocol: Document 09/09/18 16:04 RM (Rec: 09/09/18 16:12 RM [id number]) Nutrition Notes Need for Assessment generated from: MD Order Initial or Follow up Assessment Current Diagnosis COPD,Respiratory Failure Other Pertinent Diagnosis Dementia,Status epilepticus, laceration,acute encephalopathy,SIRS,Head traum Current Diet NPO Labs/Tests Reviewed Pertinent Medications Reviewed Height 5 ft 8 in Weight 64 kg [place] Body Weight (kg) 70.00 BMI 21.4 Subjective/Other Information Consulted for evaluated nutritional intake. Pt from NH and on vent. Burn Absent Trauma Absent #1 Nutrition Diagnosis Inadequate oral intake Etiology on vent As Evidenced by Signs and Symptoms NPO status Is patient on ventilator? Yes Is Patient Ambulatory and/or Out of Bed No REE-([facility]-confined to bed) 7701.402 Calculation Used for Recommendations [facility] Additional Notes Protein Needs: 77-128g (1.2-2g /kg) Fluid Needs: 1 ml/kcal Nutrition Intervention Nutrition Support: Vital 1.2 at 60 ml/hr. Water flush of 100 mls q 4 hrs . Kcal 1,728 Protein (gm) 108 Fluid (mL) 1,168 Goal #1 TF tolernace Goal #2 Meet at least 80% of calorie and protein needs via TF Anticipated Discharge Needs: Unable to determine at this time Follow-Up By: 09/11/18 Additional Comments Follow for TF tolerance
[2018-09-11] MEDS ORDERED: ATIVAN IV ONE (08:15)
--- NOTE | 2018-09-11 08:48 | Progress Note ---
Assessment and Plan Acute respiratory failure, mechanical ventilation support Seizure episodes Agitation Past medical history dementia Past medical hisptory of conversion disorder.Per RN report History of alcohol abuse Emphysema Recommendations f/u hospital ventilator bundle, Mechanical ventilation support, adjust FiO2 with goal of maintaining oximetry at or above 92%. No FIO2 35% Titrate PEEP up to maintain oximetry of the above oximetry level Set tidal Volume set initially at 6-8 cm PBW for CHA protection Keep PIP < 30 if possible Sedation as needed for patient comfort, adjust to RASS -1 to - 3 Maintain extubation precautions Daily morning sedation vacation and initiate SBT if deemed appropriate DVT prophylaxis PPI prophylaxis EEG ordered Neurology consult ordered,pending report Keppra dose adjusted up, monitor seizures Critical care time was 31 minutes of [id number] evaluation and coordination of care Subjective Date of service: 09/11/18 Principal diagnosis: acute respiratory failure, seizure event, possibly cut history of dementia, Interval history: Sedate intubated Objective Vital Signs - 12hr 09/10/18 09/10/18 09/10/18 21:00 21:30 22:00 Temperature Pulse Rate 113 H 109 H 110 H Pulse Rate [ From Monitor] Respiratory 18 18 18 Rate Blood Pressure 94/62 112/76 105/71 O2 Sat by Pulse 98 98 Oximetry 09/10/18 09/10/18 09/10/18 22:30 23:00 23:30 Temperature Pulse Rate 117 H 111 H 111 H Pulse Rate [ From Monitor] Respiratory 19 18 18 Rate Blood Pressure 105/71 105/74 109/79 O2 Sat by Pulse 100 100 Oximetry 09/11/18 09/11/18 09/11/18 00:00 00:10 00:17 Temperature 98.4 F Pulse Rate 109 H 106 H 112 H Pulse Rate [ 108 H From Monitor] Respiratory 18 18 Rate Blood Pressure 99/72 99/72 99/72 O2 Sat by Pulse 99 100 99 Oximetry 09/11/18 09/11/18 09/11/18 00:30 01:00 01:30 Temperature Pulse Rate 114 H 102 H 100 H Pulse Rate [ From Monitor] Respiratory 14 18 18 Rate Blood Pressure 132/83 93/64 102/68 O2 Sat by Pulse 100 100 Oximetry 09/11/18 09/11/18 09/11/18 02:00 02:30 03:00 Temperature Pulse Rate 95 H 95 H 92 H Pulse Rate [ From Monitor] Respiratory 18 18 18 Rate Blood Pressure 119/76 86/61 99/67 O2 Sat by Pulse 100 Oximetry 09/11/18 09/11/18 09/11/18 03:25 03:30 04:00 Temperature 97.6 F Pulse Rate 100 H 104 H 110 H Pulse Rate [ 95 H From Monitor] Respiratory 21 20 Rate Blood Pressure 99/67 121/96 121/96 O2 Sat by Pulse 99 85 100 Oximetry 09/11/18 09/11/18 09/11/18 04:30 05:00 05:30 Temperature Pulse Rate 99 H 92 H 91 H Pulse Rate [ From Monitor] Respiratory 18 14 14 Rate Blood Pressure 84/56 94/61 86/59 O2 Sat by Pulse 99 Oximetry 09/11/18 09/11/18 09/11/18 06:00 06:30 07:00 Temperature Pulse Rate 91 H 86 82 Pulse Rate [ From Monitor] Respiratory 14 14 14 Rate Blood Pressure 97/69 78/55 90/55 O2 Sat by Pulse 98 Oximetry 09/11/18 08:00 Temperature 97.8 F Pulse Rate Pulse Rate [ From Monitor] Respiratory Rate Blood Pressure O2 Sat by Pulse Oximetry Constitutional: asleep Eyes: non-icteric ENT: other (orally intubated and sedated) Neck: supple Effort: normal Ascultation: Bilateral: clear Percussion: Bilateral: not dull Cardiovascular: regular rate and rhythm (sinus tachycardia) Gastrointestinal: soft, non-tender Extremities: no cyanosis, no edema, pink and warm, pulses normal Neurologic: unable to assess (RASS - 2) CBC and BMP: 09/11/18 05:05 09/11/18 05:05 ABG, PT/INR, D-dimer: ABG POC ABG pH 7.462 (7.35-7.45) H 09/11/18 04:57 POC ABG pCO2 31.2 (35-45) L 09/11/18 04:57 POC ABG pO2 109 (80-105) H 09/11/18 04:57 POC ABG HCO3 22.3 (22-26 mml/L) 09/11/18 04:57 POC ABG Total CO2 23 (23-27mmol/L) 09/11/18 04:57 POC ABG O2 Sat 99 09/11/18 04:57 Abnormal lab findings: Abnormal Labs 09/08/18 09/08/18 09/08/18 13:04 13:04 13:04 WBC 13.7 H Hgb Hct Plt Count Lymphocytes % (Manual) 39.0 H POC ABG pH POC ABG pCO2 POC ABG pO2 Sodium Potassium Chloride Carbon Dioxide 15 L Glucose POC Glucose TSH 12.130 H 09/08/18 09/10/18 09/10/18 17:18 00:43 04:17 WBC Hgb Hct Plt Count Lymphocytes % (Manual) POC ABG pH 7.477 H 7.306 L POC ABG pCO2 31.5 L 49.4 H 33.6 L POC ABG pO2 136 H 112 H 124 H Sodium Potassium Chloride Carbon Dioxide Glucose POC Glucose TSH 09/10/18 09/10/18 09/10/18 10:34 10:34 11:41 WBC 21.2 H Hgb Hct Plt Count 125 L Lymphocytes % (Manual) POC ABG pH POC ABG pCO2 POC ABG pO2 Sodium 136 L Potassium Chloride Carbon Dioxide 21 L Glucose 109 H POC Glucose 107 H TSH 09/10/18 09/10/18 09/10/18 19:08 19:59 20:57 WBC Hgb Hct Plt Count Lymphocytes % (Manual) POC ABG pH POC ABG pCO2 POC ABG pO2 Sodium Potassium Chloride Carbon Dioxide Glucose POC Glucose 121 H 122 H 128 H TSH 09/10/18 09/10/18 09/11/18 22:01 23:05 00:01 WBC Hgb Hct Plt Count Lymphocytes % (Manual) POC ABG pH POC ABG pCO2 POC ABG pO2 Sodium Potassium Chloride Carbon Dioxide Glucose POC Glucose 126 H 109 H 136 H TSH 09/11/18 09/11/18 09/11/18 01:04 02:00 02:56 WBC Hgb Hct Plt Count Lymphocytes % (Manual) POC ABG pH POC ABG pCO2 POC ABG pO2 Sodium Potassium Chloride Carbon Dioxide Glucose POC Glucose 128 H 127 H 132 H TSH 09/11/18 09/11/18 09/11/18 03:54 04:57 05:05 WBC 17.0 H Hgb 11.4 L Hct 33.8 L Plt Count 110 L Lymphocytes % (Manual) POC ABG pH 7.462 H POC ABG pCO2 31.2 L POC ABG pO2 109 H Sodium Potassium Chloride Carbon Dioxide Glucose POC Glucose 112 H TSH 09/11/18 09/11/1809/11/19 05:05 05:16 06:00 WBC Hgb Hct Plt Count Lymphocytes % (Manual) POC ABG pH POC ABG pCO2 POC ABG pO2 Sodium 134 L Potassium 3.2 L Chloride 97.5 L Carbon Dioxide Glucose 144 H POC Glucose 150 H 178 H TSH 09/11/18 09/11/18 06:54 08:01 WBC Hgb Hct Plt Count Lymphocytes % (Manual) POC ABG pH POC ABG pCO2 POC ABG pO2 Sodium Potassium Chloride Carbon Dioxide Glucose POC Glucose 146 H 116 H TSH Chest x-ray: report reviewed, image reviewed
[2018-09-11] MEDS: MIDAZOLAM 100 MG in NACL 0.9% 80 ML IV SCH (08:57)
[2018-09-11] MEDS ORDERED: NACL 0.9% 1000 ML 1,000 ML IV SCH (09:00)
[2018-09-11] MEDS: DUONEB *Not for PRN Use IH SCH ×4 (09:01→19:49)
[2018-09-11] MEDS: KEPPRA 750 MG in D5W 100 ML IV SCH (09:45)
[2018-09-11] MEDS ORDERED: VANCOMYCIN/NS 1 GM/250 ML 1 GM/250 ML BAG IV SCH (10:00)
[2018-09-11] MEDS: ROCEPHIN/NS 2 GM/100 ML 2 GM/100 ML BAG IV SCH (10:10)
[2018-09-11] MEDS: PEPCID IV SCH ×2 (10:15→21:05)
[2018-09-11] MEDS ORDERED: MAGNESIUM SULFATE 2GM/50ML 2 GM/50 ML BAG IV ONE (11:00)
--- NOTE | 2018-09-11 11:31 | Progress Note ---
Assessment and Plan Cultures: Sputum 09/09/2018 MSSA Sputum 09/10/2018 pending. Assessment: 1) SIRS: present on admission with tachycardia, leukocytosis, noted later low grade fever, etiology unclear. UA negative. CXR x 3 no consolidations. ? early pneumonia +/- status epilepticus. 2) Possible MSSA tracheobronchitis: CXR x 3 no consolidations, +emphysema changes. Follow up WBC count, possibly reactive from seizures. 3) Acute respiratory failure: intubated 4) Status Epilepticus 5) Acute encephalopathy: from seizures Recommendations: - d/c contact precautions - discontinued Ceftriaxone and Vancomycin - started IV Cefazolin 2 gm q8 hrs - f/u procalcitonin - WBC is likely reactive from seizures Alexandra Thompson MD [facility] C: [phone] O: [phone] F: [phone] Subjective Date of service: 09/11/18 Principal diagnosis: acute respiratory failure, seizure event, possibly cut history of dementia, Interval history: No fever. Having intermittent seizures per RN. No diarrhea. No other issues. Stable on vent. Sedated. Objective - Exam Narrative Exam: Physical Exam: Constitutional: sedated, intubated Head, Ears, Nose: Normocephalic, atraumatic. External ears, nose normal Eyes: Conjunctivae/corneas clear. No icterus. No ptosis. Neck: Supple, no meningeal signs Oral: intubated Cardiovascular: S1, S2 normal. Respiratory: Good air entry, clear to auscultation bilaterally GI: Soft, non-tender; bowel sounds normal. No peritoneal signs Musculoskeletal: No pedal edema, no cyanosis. Skin: No rash or abscess Hem/Lymphatic: No palpable cervical or supraclavicular nodes. No lymphangitis Psych: no agitation Neurological: sedated, intubated, on vent - Constitutional Vitals: Vital Signs Temp Pulse Resp BP Pulse Ox 97.8 F 92 H 14 107/50 100 09/11/18 08:00 09/11/18 10:30 09/11/18 10:30 09/11/18 10:30 09/11/18 10:30 Temperature -Last 24 Hours Temperature 97.8 F Temperature 97.6 F Temperature 98.4 F Temperature 100.2 F Temperature 99.2 F Temperature 98.8 F - Labs CBC & Chem 7: 09/11/18 05:05 09/11/18 05:05 Labs: Abnormal lab results 09/10/18 09/10/18 09/10/18 Range/Units 10:34 10:34 11:41 WBC 21.2 H (4.5-11.0) K/mm3 Hgb (11.8-15.2) gm/dl Hct (35.5-45.6) % Plt Count 125 L (140-440) K/mm3 POC ABG pH (7.35-7.45) POC ABG pCO2 (35-45) POC ABG pO2 (80-105) Sodium 136 L (137-145) mmol/L Potassium (3.6-5.0) mmol/L Chloride (98-107) mmol/L Carbon Dioxide 21 L (22-30) mmol/L Glucose 109 H (75-100) mg/dL POC Glucose 107 H (70-105) 09/10/18 09/10/18 09/10/18 Range/Units 19:08 19:59 20:57 WBC (4.5-11.0) K/mm3 Hgb (11.8-15.2) gm/dl Hct (35.5-45.6) % Plt Count (140-440) K/mm3 POC ABG pH (7.35-7.45) POC ABG pCO2 (35-45) POC ABG pO2 (80-105) Sodium (137-145) mmol/L Potassium (3.6-5.0) mmol/L Chloride (98-107) mmol/L Carbon Dioxide (22-30) mmol/L Glucose (75-100) mg/dL POC Glucose 121 H 122 H 128 H (70-105) 09/10/18 09/10/18 09/11/18 Range/Units 22:01 23:05 00:01 WBC (4.5-11.0) K/mm3 Hgb (11.8-15.2) gm/dl Hct (35.5-45.6) % Plt Count (140-440) K/mm3 POC ABG pH (7.35-7.45) POC ABG pCO2 (35-45) POC ABG pO2 (80-105) Sodium (137-145) mmol/L Potassium (3.6-5.0) mmol/L Chloride (98-107) mmol/L Carbon Dioxide (22-30) mmol/L Glucose (75-100) mg/dL POC Glucose 126 H 109 H 136 H (70-105) 09/11/18 09/11/18 09/11/18 Range/Units 01:04 02:00 02:56 WBC (4.5-11.0) K/mm3 Hgb (11.8-15.2) gm/dl Hct (35.5-45.6) % Plt Count (140-440) K/mm3 POC ABG pH (7.35-7.45) POC ABG pCO2 (35-45) POC ABG pO2 (80-105) Sodium (137-145) mmol/L Potassium (3.6-5.0) mmol/L Chloride (98-107) mmol/L Carbon Dioxide (22-30) mmol/L Glucose (75-100) mg/dL POC Glucose 128 H 127 H 132 H (70-105) 09/11/18 09/11/18 09/11/18 Range/Units 03:54 04:57 05:05 WBC 17.0 H (4.5-11.0) K/mm3 Hgb 11.4 L (11.8-15.2) gm/dl Hct 33.8 L (35.5-45.6) % Plt Count 110 L (140-440) K/mm3 POC ABG pH 7.462 H (7.35-7.45) POC ABG pCO2 31.2 L (35-45) POC ABG pO2 109 H (80-105) Sodium (137-145) mmol/L Potassium (3.6-5.0) mmol/L Chloride (98-107) mmol/L Carbon Dioxide (22-30) mmol/L Glucose (75-100) mg/dL POC Glucose 112 H (70-105) 09/11/18 09/11/18 09/11/18 Range/Units 05:05 05:16 06:00 WBC (4.5-11.0) K/mm3 Hgb (11.8-15.2) gm/dl Hct (35.5-45.6) % Plt Count (140-440) K/mm3 POC ABG pH (7.35-7.45) POC ABG pCO2 (35-45) POC ABG pO2 (80-105) Sodium 134 L (137-145) mmol/L Potassium 3.2 L (3.6-5.0) mmol/L Chloride 97.5 L (98-107) mmol/L Carbon Dioxide (22-30) mmol/L Glucose 144 H (75-100) mg/dL POC Glucose 150 H 178 H (70-105) 09/11/18 09/11/18 09/11/18 Range/Units 06:54 08:01 09:14 WBC (4.5-11.0) K/mm3 Hgb (11.8-15.2) gm/dl Hct (35.5-45.6) % Plt Count (140-440) K/mm3 POC ABG pH (7.35-7.45) POC ABG pCO2 (35-45) POC ABG pO2 (80-105) Sodium (137-145) mmol/L Potassium (3.6-5.0) mmol/L Chloride (98-107) mmol/L Carbon Dioxide (22-30) mmol/L Glucose (75-100) mg/dL POC Glucose 146 H 116 H 114 H (70-105) - Imaging and cardiology Chest x-ray: report reviewed, image reviewed (No pneumonia seen. )
[2018-09-11] MEDS: KEPPRA 1,500 MG in D5W 100 ML IV SCH ×2 (12:21→21:49)
[2018-09-11] MEDS: ceFAZolin 2 GM in NACL 0.9% 100 ML IV SCH ×2 (14:31→21:25)
[2018-09-11] MEDS ORDERED: PANCREAZE DR 10,500 UNIT FEEDTUBE PRN (14:40)
[2018-09-11] MEDS ORDERED: SODIUM BICARBONATE FEEDTUBE PRN (14:40)
[2018-09-11] MEDS ORDERED: SIMPLE SYRUP FEEDTUBE PRN ×2 (14:40)
--- NOTE | 2018-09-11 14:44 | Consultation ---
Past History Past Medical History: other (unable to obtain from patient but apparently has psych history and history of seizures) Past Surgical History: Other (unable to obtain) Social history: other (unable to obtain) Family history: other (unable to obtain) Medications and Allergies Allergies Allergy/AdvReac Type Severity Reaction Status Date / Time No Known Allergies Allergy Verified 03/21/13 23:55 Home Medications Medication Instructions Recorded Confirmed Last Taken Type Citalopram [celeXA] 10 mg PO QDAY #30 tablet 06/28/15 09/08/18 Unknown Rx Folic Acid [Folvite] 1 mg PO QDAY #30 tablet 06/28/15 09/08/18 Unknown Rx Isoniazid 300 mg PO QDAY #30 tablet 06/28/15 09/08/18 Unknown Rx Pyridoxine [Vitamin B-6 50MG TAB] 50 mg PO DAILY #30 tablet 06/28/15 09/08/18 Unknown Rx Thiamine [Vitamin B-1] 100 mg PO QDAY #30 tablet 06/28/15 09/08/18 Unknown Rx LORazepam [Ativan INJ] 0.5 mg IM Q8H PRN 09/08/18 09/08/18 Unknown History LORazepam [Ativan] 0.25 mg PO DAILY 09/08/18 09/08/18 Unknown History Lacosamide [Vimpat] 200 mg PO Q12H 09/08/18 09/08/18 Unknown History Memantine HCl [Namenda] 10 mg PO QAM&QHS 09/08/18 09/08/18 Unknown History Mirtazapine 7.5 mg PO HS 09/08/18 09/08/18 Unknown History Active Meds: Active Medications Acetaminophen (Tylenol) 650 mg FEEDTUBE Q6H PRN PRN Reason: Fever >101, Mild Pain (1-3) Albuterol (Proventil) 2.5 mg IH Q4HRT PRN PRN Reason: Shortness Of Breath Albuterol/Ipratropium (Duoneb *Not For Prn Use*) 1 ampul IH QIDRT BALDEMAR Last Admin: 09/11/18 12:07 Dose: 1 ampul Documented by: Lipase/Protease/Amylase (Aida Rodriguez 10,500 Unit) 1 each FEEDTUBE PRN PRN PRN Reason: For Clogged Feeding Tube Enoxaparin Sodium (Lovenox) 40 mg SUB-Q QDAY@2200 BALDEMAR Last Admin: 09/10/18 21:20 Dose: 40 mg Documented by: Famotidine (Pepcid) 20 mg IV BID BALDEMAR Last Admin: 09/11/18 10:15 Dose: 20 mg Documented by: Haloperidol Lactate (Haldol) 5 mg IV Q6H PRN PRN Reason: Agitation Last Admin: 09/10/18 02:49 Dose: 5 mg Documented by: Hydrophilic Ointment (Vaseline Lip Therapy) 1 applic TP Q2HR PRN PRN Reason: Dry Lips Midazolam HCl 100 mg/ Sodium (Chloride) 100 mls @ 2 mls/hr IV TITR BALDEMAR; Protocol Last Titration: 09/11/18 11:00 Dose: 2 mg/hr, 2 mls/hr Documented by: Fentanyl Citrate (Fentanyl Drip Premix) 2,000 mcg in 100 mls @ 3.2 mls/hr IV TITR BALDEMAR; Protocol Last Titration: 09/09/18 13:25 Dose: 0 mcg/kg/hr, 0 mls/hr Documented by: Propofol (Diprivan 10 Mg/Ml) 1,000 mg in 100 mls @ 1.92 mls/hr IV TITR BALDEMAR; Protocol Last Titration: 09/11/18 09:17 Dose: 25 mcg/kg/min, 9.6 mls/hr Documented by: Dextrose (D5w) 1,000 mls @ 75 mls/hr IV DIRECT BALDEMAR Last Admin: 09/11/18 06:11 Dose: 75 mls/hr Documented by: Levetiracetam 1,500 mg/ (Dextrose) 115 mls @ 400 mls/hr IV Q12HR BALDEMAR Last Admin: 09/11/18 12:21 Dose: 400 mls/hr Documented by: Cefazolin Sodium 2 gm/ Sodium (Chloride) 100 mls @ 200 mls/hr IV Q8HR BALDEMAR; Protocol Lorazepam (Ativan) 2 mg IV Q4H PRN PRN Reason: Agitation Last Admin: 09/10/18 06:00 Dose: 2 mg Documented by: Midazolam HCl (Versed) 2 mg IV Q10MIN PRN PRN Reason: Sedation Multi-Ingred Cream/Lotion/Oil/Oint (Artificial Tears Ophth Oint) 1 applic OU Q4HR PRN PRN Reason: Dry Eye(s) Simple Syrup (Simple Syrup) 15 ml FEEDTUBE PRN PRN PRN Reason: Hypoglycemia Simple Syrup (Simple Syrup) 30 ml FEEDTUBE PRN PRN PRN Reason: Hypoglycemia Sodium Bicarbonate (Sodium Bicarbonate) 325 mg FEEDTUBE PRN PRN PRN Reason: For Clogged Feeding Tube Physical Examination - Vital Signs Vital Signs: Vital Signs Pulse Resp BP Pulse Ox 119 H 20 103/66 98 09/08/18 12:30 09/08/18 12:30 09/08/18 12:30 09/08/18 12:30 Results - Laboratory Findings CBC and BMP: 09/11/18 05:05 09/11/18 05:05 Abnormal Lab Findings: Abnormal Labs 09/08/18 09/08/18 09/08/18 13:04 13:04 13:04 WBC 13.7 H Hgb Hct Plt Count Lymphocytes % (Manual) 39.0 H POC ABG pH POC ABG pCO2 POC ABG pO2 Sodium Potassium Chloride Carbon Dioxide 15 L Glucose POC Glucose TSH 12.130 H 09/08/18 09/10/18 09/10/18 17:18 00:43 04:17 WBC Hgb Hct Plt Count Lymphocytes % (Manual) POC ABG pH 7.477 H 7.306 L POC ABG pCO2 31.5 L 49.4 H 33.6 L POC ABG pO2 136 H 112 H 124 H Sodium Potassium Chloride Carbon Dioxide Glucose POC Glucose TSH 09/10/18 09/10/18 09/10/18 10:34 10:34 11:41 WBC 21.2 H Hgb Hct Plt Count 125 L Lymphocytes % (Manual) POC ABG pH POC ABG pCO2 POC ABG pO2 Sodium 136 L Potassium Chloride Carbon Dioxide 21 L Glucose 109 H POC Glucose 107 H TSH 09/10/18 09/10/18 09/10/18 19:08 19:59 20:57 WBC Hgb Hct Plt Count Lymphocytes % (Manual) POC ABG pH POC ABG pCO2 POC ABG pO2 Sodium Potassium Chloride Carbon Dioxide Glucose POC Glucose 121 H 122 H 128 H TSH 09/10/18 09/10/18 09/11/18 22:01 23:05 00:01 WBC Hgb Hct Plt Count Lymphocytes % (Manual) POC ABG pH POC ABG pCO2 POC ABG pO2 Sodium Potassium Chloride Carbon Dioxide Glucose POC Glucose 126 H 109 H 136 H TSH 09/11/18 09/11/18 09/11/18 01:04 02:00 02:56 WBC Hgb Hct Plt Count Lymphocytes % (Manual) POC ABG pH POC ABG pCO2 POC ABG pO2 Sodium Potassium Chloride Carbon Dioxide Glucose POC Glucose 128 H 127 H 132 H TSH 09/11/18 09/11/18 09/11/18 03:54 04:57 05:05 WBC 17.0 H Hgb 11.4 L Hct 33.8 L Plt Count 110 L Lymphocytes % (Manual) POC ABG pH 7.462 H POC ABG pCO2 31.2 L POC ABG pO2 109 H Sodium Potassium Chloride Carbon Dioxide Glucose POC Glucose 112 H TSH 09/11/18 09/11/18 09/11/18 05:05 05:16 06:00 WBC Hgb Hct Plt Count Lymphocytes % (Manual) POC ABG pH POC ABG pCO2 POC ABG pO2 Sodium 134 L Potassium 3.2 L Chloride 97.5 L Carbon Dioxide Glucose 144 H POC Glucose 150 H 178 H TSH 09/11/18 09/11/18 09/11/18 06:54 08:01 09:14 WBC Hgb Hct Plt Count Lymphocytes % (Manual) POC ABG pH POC ABG pCO2 POC ABG pO2 Sodium Potassium Chloride Carbon Dioxide Glucose POC Glucose 146 H 116 H 114 H TSH 09/11/18 12:43 WBC Hgb Hct Plt Count Lymphocytes % (Manual) POC ABG pH POC ABG pCO2 POC ABG pO2 Sodium Potassium Chloride Carbon Dioxide Glucose POC Glucose 144 H TSH Assessment and Plan The patient is a 67-year-old gentleman with history of seizure disorder, dementia and COPD are producing a usp. Patient was found unresponsive on the floor. Patient was brought to the hospital and was admitted with a diagnosis of status epilepticus. Since patient was admitted to intensive care unit after initial seizure control, patient had a recurrence of seizure this morning which happened after 5 mg Haldol was given as he was educated. Patient developed another episode of seizure which was witnessed by the nurse. Patient was also given propofol and Versed in addition to Haldol. Workup after admission including CT scan was negative for any acute finding. Lab for hearing aid evidence of infection with increased WBC. Patient is currently on antibiotic coverage. Patient was getting Keppra 1500 mg per day which was increased to 1500 mg twice a day by the commutator v ring assembler after recurrence of seizures. Electrolytes are within normal limits. Physical examination. Patient is bilaterally unresponsive. He is deeply sedated. No response to sternal rub. Pupils sluggishly react to light. No spontaneous movement of extremities. Generalized hyporreflexia with no response to plantar stimulation. Impression. Status epilepticus initially controlled with recurrence of seizure, is currently seizure is under control, on Keppra 1500 mg twice a day. 6 status epilepticus was precipitated by infection IN addition to possible medication noncompliance nursing because of comorbidity such as dementia. Recommendation. #1 continue Keppra will continue As prescribed #2. Continue antibiotic and other supportive care. #3 Discontinue Haldol altogether as Haldol can also precipitate seizures. #4. Please give him Ativan 2 mg IV every 4 when necessary for seizure. #5. Agree with EEG to detect rare possibilities of electrical status.
[2018-09-11] MEDS: LOVENOX SUB-Q SCH (21:05)
--- NOTE | 2018-09-12 02:43 | XRay Report ---
PROCEDURE: XR CHEST 1V AP TECHNIQUE: Chest radiograph single view. HISTORY: follow up respiratory failure COMPARISONS: 09/11/2018 . FINDINGS: Heart: Normal. Mediastinum/Vessels: Normal. Lungs/Pleural space: The lungs are hyperinflated. There are no infiltrates or effusions.. Bony thorax: No acute osseous abnormality. Life support devices: The NG tube is in good position the stomach. The tip of the left-sided PICC reina e is in good position in the SVC.. IMPRESSION: No acute cardiopulmonary abnormality. COPD. This document is electronically signed by Jason Valencia MD., September 12 2018 02:41:27 AM ET
[2018-09-12 05:04] LABS: Hemoglobin 11.3 gm/dl (11.8-15.2); Mean Corpuscular HGB Conc 33 % (32-34); Mean Corpuscular Volume 92 fl (84-94); Platelet Count 140 K/mm3 (140-440); Red Blood Count 3.71 M/mm3 (3.65-5.03); Red Cell Distribution Width 13.4 % (13.2-15.2)
[2018-09-12 05:24] LABS: BUN/Creatinine Ratio 6; Blood Urea Nitrogen 8 mg/dL (9-20); Calcium 8.9 mg/dL (8.4-10.2); Hemolysis Index 2
[2018-09-12] MEDS: ceFAZolin 2 GM in NACL 0.9% 100 ML IV SCH ×3 (06:18→22:00)
[2018-09-12] MEDS ORDERED: ATIVAN IM PRN (08:00)
--- NOTE | 2018-09-12 08:12 | Progress Note ---
Assessment and Plan Assessment and plan: Patient is a 67 yo man from [facility] with a history of Advance Dementia, COPD, Anxiety disorder, Seizure disorder due to prior ETOH abuse, gout and CKD 3 who presented to [facility] ED after seizure and fall resulting in patient hitting his head on the floor causing laceration followed by agitation. There is report of him being non-compliant with meds at the [place]. He was combative en route to hospital and EMS gave him Versed. He was sedaged and unresponsive with pulse ox of only 85% on Nonrebreather 100% O2 mask. He was subsequently intubated by Dr. Clemente and admitted to the ICU. Patient was extubated on 09.09.18 around 8pm but had to be re-intubated around 9:30pm. It appears patient may had a mucus plug. Also, once sedation stopped the seizure continued. EEG ordered. Staph aureus growing out trach culture, started IV Vancomycin 09/10/18. EEG and neurology consult pending. * CT head wo contrast IMPRESSION: No acute intracranial abnormality. No change. * pCXR IMPRESSION: Slight atelectasis and mild effusion left lower lung. * CT cervical spine wo contrast IMPRESSION: 1. No evidence of fracture or subluxation. 2. Cervical spondylosis with multiple level canal and foraminal stenosis. If further imaging is required, MRI may be helpful. 3. Pulmonary emphysema. Status Epilepticus: treat with IV keppra, on sedation, consult Neurology when available, EEG Acute respiratory failure s/p ETT MV: daily weaning, MV monitoring, O2 monitoring, Consult CCM, input noted MSSA pneumonia: ID following Acute encephalopathy due to the above, poa Most likely SEPSIS from PNA, poa: on IV abx Urinary Retention, Prasad in place, which was removed, then re-inserted on 09/10/18 (i believe) for urinary retention Head trauma s/p seizure syncopal fall: local wound care Acidosis resolved, carbon dioxide level 15 normal Cr 1.5 Elevated TSH 12.130 with normal Free T4 of 1.07, subclinical vs critical illness rxn UDS positive for Benzodiazepines, normal serum alcohol Hypokalemia: replete and recheck bmp with magnesium in AM DVT ppx on sq lovenox full code Restraints renewed d/w sister in law at bedside EEG pending order MRI brain once able to CCT 33 minutes History Interval history: Patient was seen and examined. Follow-up on current diagnosis of SZ and respiratory failure. No overnight events reported to me. Imaging, nursing note, chart, labs and old chart reviewed. Discussed with nursing Hospitalist Physical - Physical exam Narrative exam: Gen: ill appearing, cachetic, intubated HEENT: >with head laceration, EOMI, Intubated with ETT in place Neck: supple, no adenopathy, no thyromegaly, no JVD CVS/Heart: RRR, normal S1S2, pulses present bilaterally Chest/Lungs: CTA B, Symmetrical chest expansion, good air entry bilaterally GI/Abdomen: soft, NTND, good bowel sounds, no guarding or rebound /Bladder: no suprapubic tenderness, no CVA or paraspinal tenderness Extermity/Skin: no c/c/e, no obvious rash MSK: sedated Neuro: sedated Psych: sedated - Constitutional Vitals: Temp Pulse Resp BP Pulse Ox 99.8 F H 91 H 18 116/74 100 09/12/18 03:45 09/12/18 07:01 09/12/18 07:01 09/12/18 07:01 09/12/18 07:01 Results - Labs CBC & Chem 7: 09/12/18 04:55 09/12/18 04:55 Labs: Laboratory Last Values WBC 11.5 K/mm3 (4.5-11.0) H 09/12/18 04:55 RBC 3.71 M/mm3 (3.65-5.03) 09/12/18 04:55 Hgb 11.3 gm/dl (11.8-15.2) L 09/12/18 04:55 Hct 34.0 % (35.5-45.6) L 09/12/18 04:55 MCV 92 fl (84-94) 09/12/18 04:55 MCH 31 pg (28-32) 09/12/18 04:55 MCHC 33 % (32-34) 09/12/18 04:55 RDW 13.4 % (13.2-15.2) 09/12/18 04:55 Plt Count 140 K/mm3 (140-440) 09/12/18 04:55 Lymph # [employer] 09/12/18 04:55 Add Manual Diff Complete 09/08/18 13:04 Total Counted 100 09/08/18 13:04 Seg Neuts % (Manual) 54.0 % (40.0-70.0) 09/08/18 13:04 0 % 09/08/18 13:04 39.0 % (13.4-35.0) H 09/08/18 13:04 Reactive Lymphs % (Man) 0 % 09/08/18 13:04 5.0 % (0.0-7.3) 09/08/18 13:04 2.0 % (0.0-4.3) 09/08/18 13:04 0 % (0.0-1.8) 09/08/18 13:04 0 % 09/08/18 13:04 0 % 09/08/18 13:04 0 % 09/08/18 13:04 0 % 09/08/18 13:04 Nucleated RBC % Not Reportable 09/08/18 13:04 Seg Neutrophils # Man 7.4 K/mm3 (1.8-7.7) 09/08/18 13:04 Band Neutrophils # 0.0 K/mm3 09/08/18 13:04 5.3 K/mm3 (1.2-5.4) 09/08/18 13:04 Abs React Lymphs (Man) 0.0 K/mm3 09/08/18 13:04 0.7 K/mm3 (0.0-0.8) 09/08/18 13:04 0.3 K/mm3 (0.0-0.4) 09/08/18 13:04 0.0 K/mm3 (0.0-0.1) 09/08/18 13:04 0.0 K/mm3 09/08/18 13:04 0.0 K/mm3 09/08/18 13:04 0.0 K/mm3 09/08/18 13:04 Blast Cells # 0.0 K/mm3 09/08/18 13:04 WBC Morphology Not Reportable 09/08/18 13:04 Hypersegmented Neuts Not Reportable 09/08/18 13:04 Hyposegmented Neuts Not Reportable 09/08/18 13:04 Hypogranular Neuts Not Reportable 09/08/18 13:04 Not Reportable 09/08/18 13:04 Not Reportable 09/08/18 13:04 Not Reportable 09/08/18 13:04 Not Reportable 09/08/18 13:04 Not Reportable 09/08/18 13:04 Not Reportable 09/08/18 13:04 Consistent w auto 09/08/18 13:04 Not Reportable 09/08/18 13:04 Plt Clumps, EDTA Not Reportable 09/08/18 13:04 Not Reportable 09/08/18 13:04 Not Reportable 09/08/18 13:04 Not Reportable 09/08/18 13:04 Plt Morphology Comment Not Reportable 09/08/18 13:04 RBC Morphology Not Reportable 09/08/18 13:04 Dimorphic RBCs Not Reportable 09/08/18 13:04 Not Reportable 09/08/18 13:04 Not Reportable 09/08/18 13:04 Few 09/08/18 13:04 Few 09/08/18 13:04 Not Reportable 09/08/18 13:04 Not Reportable 09/08/18 13:04 Not Reportable 09/08/18 13:04 Not Reportable 09/08/18 13:04 Not Reportable 09/08/18 13:04 Not Reportable 09/08/18 13:04 Not Reportable 09/08/18 13:04 Not Reportable 09/08/18 13:04 Not Reportable 09/08/18 13:04 Not Reportable 09/08/18 13:04 Not Reportable 09/08/18 13:04 Not Reportable 09/08/18 13:04 Not Reportable 09/08/18 13:04 Not Reportable 09/08/18 13:04 Not Reportable 09/08/18 13:04 Acanthocytes (Spur) Not Reportable 09/08/18 13:04 Rouleaux Not Reportable 09/08/18 13:04 Not Reportable 09/08/18 13:04 Not Reportable 09/08/18 13:04 Not Reportable 09/08/18 13:04 Not Reportable 09/08/18 13:04 Hem Pathologist Commnt No 09/08/18 13:04 POC ABG pH 7.369 (7.35-7.45) 09/12/18 04:19 POC ABG pCO2 41.3 (35-45) 09/12/18 04:19 POC ABG pO2 100 (80-105) 09/12/18 04:19 POC ABG HCO3 23.8 (22-26 mml/L) 09/12/18 04:19 POC ABG Total CO2 25 (23-27mmol/L) 09/12/18 04:19 POC ABG O2 Sat 98 09/12/18 04:19 POC ABG Base Excess -1 ((-2) - (+3)mmol/L) 09/12/18 04:19 28 % 09/12/18 04:19 Sodium 136 mmol/L (137-145) L 09/12/18 04:55 Potassium 3.6 mmol/L (3.6-5.0) 09/12/18 04:55 Chloride 99.7 mmol/L (98-107) 09/12/18 04:55 Carbon Dioxide 25 mmol/L (22-30) 09/12/18 04:55 15 mmol/L 09/12/18 04:55 BUN 8 mg/dL (9-20) L 09/12/18 04:55 1.3 mg/dL (0.8-1.5) 09/12/18 04:55 Estimated GFR > 60 ml/min 09/12/18 04:55 6 % 09/12/18 04:55 Glucose 122 mg/dL (75-100) H 09/12/18 04:55 POC Glucose 115 (70-105) H 09/12/18 05:35 Calcium 8.9 mg/dL (8.4-10.2) 09/12/18 04:55 Phosphorus 2.90 mg/dL (2.5-4.5) 09/11/18 07:10 Magnesium 1.80 mg/dL (1.7-2.3) 09/11/18 07:10 0.20 mg/dL (0.1-1.2) 09/08/18 13:04 AST 27 units/L (5-40) 09/08/18 13:04 ALT 10 units/L (7-56) 09/08/18 13:04 64 units/L (35-129) 09/08/18 13:04 109 units/L (55-170) 09/08/18 13:04 7.0 g/dL (6.3-8.2) 09/08/18 13:04 3.9 g/dL (3.9-5) 09/08/18 13:04 1.3 % 09/08/18 13:04 TSH 3.820 mlU/mL (0.270-4.200) 09/09/18 11:50 Free T4 1.22 ng/dL (0.76-1.46) 09/09/18 11:50 Yellow (Yellow) 09/08/18 15:20 Slightly-cloudy (Clear) 09/08/18 15:20 5.0 (5.0-7.0) 09/08/18 15:20 Ur Specific [place] 1.009 (1.003-1.030) 09/08/18 15:20 <15 mg/dl mg/dL (Negative) 09/08/18 15:20 Neg mg/dL (Negative) 09/08/18 15:20 Neg mg/dL (Negative) 09/08/18 15:20 Neg (Negative) 09/08/18 15:20 Neg (Negative) 09/08/18 15:20 Neg (Negative) 09/08/18 15:20 < 2.0 mg/dL (<2.0) 09/08/18 15:20 Ur Leukocyte Esterase Neg (Negative) 09/08/18 15:20 1.0 /HPF (0.0-6.0) 09/08/18 15:20 3.0 /HPF (0.0-6.0) 09/08/18 15:20 U Epithel Cells (Auto) < 1.0 /HPF (0-13.0) 09/08/18 15:20 Hyaline Casts 1 /LPF 09/08/18 15:20 Few /HPF 09/08/18 15:20 Presumptive negative 09/08/18 15:21 Presumptive negative 09/08/18 15:21 Ur Barbiturates Screen Presumptive negative 09/08/18 15:21 Ur Phencyclidine Scrn Presumptive negative 09/08/18 15:21 Ur Amphetamines Screen Presumptive negative 09/08/18 15:21 U Benzodiazepines Scrn Presumptive positive 09/08/18 15:21 Presumptive negative 09/08/18 15:21 U Marijuana (THC) Screen Presumptive negative 09/08/18 15:21 Disclamer 09/08/18 15:21 Plasma/Serum Alcohol < 0.01 % (0-0.07) 09/08/18 13:04 Active Medications - Current Medications Current Medications: Generic Name Dose Route Start Last Admin Trade Name Freq PRN Reason Stop Dose Admin Acetaminophen 650 mg 09/10/18 21:07 Tylenol FEEDTUBE Q6H PRN Fever >101, Mild Pain (1-3) Albuterol 2.5 mg 09/09/18 07:28 Proventil IH Q4HRT PRN Shortness Of Breath Albuterol/Ipratropium 1 ampul 09/09/18 08:00 09/11/18 19:49 Duoneb *Not For Prn Use* IH 1 ampul QIDRT BALDEMAR Administration Lipase/Protease/Amylase 1 each 09/09/18 16:12 Pancreazshannan Rodriguez 10,500 Unit FEEDTUBE PRN PRN For Clogged Feeding Tube Enoxaparin Sodium 40 mg 09/09/18 22:00 09/11/18 21:05 Lovenox SUB-Q 40 mg QDAY@2200 BALDEMAR Administration Famotidine 20 mg 09/11/18 10:00 09/11/18 21:05 Pepcid IV 20 mg BID BALDEMAR Administration Folic Acid 1 mg 09/12/18 10:00 Folvite PO QDAY BALDEMAR Hydrophilic Ointment 1 applic 09/08/18 13:00 Vaseline Lip Therapy TP Q2HR PRN Dry Lips Midazolam HCl 100 mg/ Sodium 100 mls @ 2 mls/hr 09/08/18 14:00 09/11/18 17:37 Chloride IV 3 mg/hr TITR BALDEMAR 3 mls/hr Titration Protocol 2 MG/HR Fentanyl Citrate 2,000 mcg in 100 mls @ 3.2 mls/hr 09/08/18 15:00 09/09/18 13:25 Fentanyl Drip Premix IV 0 mcg/kg/hr TITR BALDEMAR 0 mls/hr Titration Protocol 1 MCG/KG/HR Propofol 1,000 mg in 100 mls @ 1.92 mls/hr 09/10/18 10:00 09/11/18 21:02 Diprivan 10 Mg/Ml IV 15 mcg/kg/min TITR BALDEMAR 5.76 mls/hr Titration Protocol 5 MCG/KG/MIN Dextrose 1,000 mls @ 75 mls/hr 09/10/18 18:00 09/11/18 21:50 D5w IV 75 mls/hr DIRECT BALDEMAR Administration Levetiracetam 1,500 mg/ 115 mls @ 400 mls/hr 09/11/18 11:00 09/11/18 21:49 Dextrose IV 400 mls/hr Q12HR BALDEMAR Administration Cefazolin Sodium 2 gm/ Sodium 100 mls @ 200 mls/hr 09/11/18 14:00 09/12/18 06:18 Chloride IV 200 mls/hr Q8HR BALDEMAR Administration Protocol Isoniazid 300 mg 09/12/18 10:00 Isoniazid PO QDAY BALDEMAR Lorazepam 2 mg 09/09/18 19:42 09/10/18 06:00 Ativan IV 2 mg Q4H PRN Administration Agitation Lorazepam 2 mg 09/11/18 14:29 Ativan IV Q6H PRN breakthrough seizures Lorazepam 0.5 mg 09/12/18 08:00 Ativan IM Q8H PRN Seizures Midazolam HCl 2 mg 09/08/18 13:00 Versed IV Q10MIN PRN Sedation Miscellaneous Medication 7.5 mg 09/12/18 22:00 Mirtazapine [Mirtazapine] PO HS [facility] Multi-Ingred Cream/Lotion/Oil/Oint 1 applic 09/08/18 13:00 Artificial Tears Ophth Oint OU Q4HR PRN Dry Eye(s) Pyridoxine HCl 50 mg 09/12/18 10:00 Vitamin B-6 PO DAILY BALDEMAR Simple Syrup 15 ml 09/09/18 16:12 Simple Syrup FEEDTUBE PRN PRN Hypoglycemia Simple Syrup 30 ml 09/09/18 16:12 Simple Syrup FEEDTUBE PRN PRN Hypoglycemia Sodium Bicarbonate 325 mg 09/09/18 16:12 Sodium Bicarbonate FEEDTUBE PRN PRN For Clogged Feeding Tube Thiamine HCl 100 mg 09/12/18 10:00 Vitamin B-1 PO QDAY [facility] Nutrition/Malnutrition Assess - Dietary Evaluation Nutrition/Malnutrition Findings: Nutrition Notes Start: 09/09/18 16:04 Freq: Status: Active Protocol: Document 09/11/18 14:27 BERENICE (Rec: 09/11/18 14:40 BERENICE [email or web address]) Nutrition Notes Initial or Follow up Reassessment Current Diagnosis Respiratory Failure Other Pertinent Diagnosis Status epilepticus, pneu, acute encephalopathy Current Diet TF - Vital AF 1.2 at 60ml/hr Labs/Tests Na 134 K 3.2 Pertinent Medications Propofol at 11.5ml/hr ( provides 304 kcal) D5W at 75ml/hr (provides 306 kcal) Mag sulfate x 1 dose 10mEq KCl at 100ml/hr x 4 bags Height 5 ft 8 in Weight 62.9 kg [place] Body Weight (kg) 70.00 BMI 21.0 Weight change and time frame Current wt obtained from bed scale Weight Status Underweight Subjective/Other Information Pt re-intubated on 09/10 and propofol started yesterday. No TF started yet sec to active seizures per RN report (Day 4 NPO). Burn Absent Trauma Absent #1 Nutrition Diagnosis Inadequate oral intake Diagnosis Progress(for reassessment Continues documentation) Is patient on ventilator? Yes Is Patient Ambulatory and/or Out of Bed No REE-([facility]-confined to bed) 1648.068 Kcal/Kg value to use for calculation 30 Approximate Energy Requirements Using 1887 kcal/Kg Calculation Used for Recommendations Kcal/kg Additional Notes Pro needs 1.2-2g/k-126g/ day Fluid needs 1ml/kcal Nutrition Intervention Nutrition Support: Change TF order to Osmolite 1. 5 at 50ml/hr witih 150ml water flush q4h. Kcal 1,800 Protein (gm) 75 Carbohydrates (gm) 244 Fat (gm) 59 Fluid (mL) 914 Fiber (gm) 0 Goal #1 Start EN support to meet nutrient needs Goal #2 Wt maintenance Anticipated Discharge Needs: Continue TF Follow-Up By: 09/12/18 Additional Comments F/U: TF start/change, propofol
[2018-09-12 08:34] LABS: Total Cells Counted 100
[2018-09-12] MEDS: DUONEB *Not for PRN Use IH SCH ×4 (08:34→20:32)
[2018-09-12 08:35] LABS: Basophils % (Manual) 0 % (0.0-1.8)
[2018-09-12 08:36] LABS: Giant Platelets Rare; Platelet Estimate Consistent w Auto
--- NOTE | 2018-09-12 09:33 | Progress Note ---
Assessment and Plan Acute respiratory failure, mechanical ventilation support Seizure episodes, none reported at this time. Per family, he has been on treatm ent for seizures for over 30 years Agitation Past medical history dementia Past medical history of conversion disorder.Per RN report History of alcohol abuse Emphysema LTBI?. Apparently on INH/thiamine treatment. Per [id number], he has been on this close to a year[facility] No data Recommendations EEG check Appreciate Neuro evaluation. Haldoperidol on hold Also on INH ( which can trigger seizures ) indication unclear,appears to be LTBI TX schedule. CXR clear, no acute pathology. We will ask for records, if the patient had been on treatment for over 6-9 months consider stopping medication treatment. If it is less than this, consider switching over to Rifampin, which is better tolerated on patient's over 65-year-old Wean off sedation today, monitor for seizure episodes Maintain extubation precautions Daily morning sedation vacation once off sedation and initiate SBT if deemed appropriate. May need to wean with Precedex due to history of agitation but this has no antiseizure effect. DVT prophylaxis PPI prophylaxis Critical care time was 31 minutes of [id number] evaluation and coordination of care Subjective Date of service: 09/12/18 Principal diagnosis: acute respiratory failure, seizure event, possibly cut history of dementia, Interval history: Sedate intubated Objective Vital Signs - 12hr 09/11/18 09/11/18 09/11/18 22:00 22:30 23:00 Temperature Pulse Rate 100 H 100 H 100 H Pulse Rate [ Anterior Bilateral Throughout] Pulse Rate [ From Monitor] Respiratory 18 17 16 Rate Respiratory Rate [Anterior Bilateral Throughout] Blood Pressure 134/76 136/73 128/74 O2 Sat by Pulse 100 100 100 Oximetry 09/11/18 09/11/18 09/11/18 23:30 23:34 23:44 Temperature 99.3 F Pulse Rate 96 H 94 H Pulse Rate [ Anterior Bilateral Throughout] Pulse Rate [ From Monitor] Respiratory 15 Rate Respiratory Rate [Anterior Bilateral Throughout] Blood Pressure 107/55 107/55 O2 Sat by Pulse 100 100 Oximetry 09/11/18 09/12/18 09/12/18 23:50 00:00 00:13 Temperature Pulse Rate 93 H 93 H 96 H Pulse Rate [ Anterior Bilateral Throughout] Pulse Rate [ 96 H From Monitor] Respiratory 15 15 16 Rate Respiratory Rate [Anterior Bilateral Throughout] Blood Pressure 127/67 121/71 121/71 O2 Sat by Pulse 100 100 100 Oximetry 09/12/18 09/12/18 09/12/18 00:30 01:00 01:30 Temperature Pulse Rate 95 H 91 H 90 Pulse Rate [ Anterior Bilateral Throughout] Pulse Rate [ From Monitor] Respiratory 15 15 14 Rate Respiratory Rate [Anterior Bilateral Throughout] Blood Pressure 119/71 90/46 92/40 O2 Sat by Pulse 100 100 99 Oximetry 09/12/18 09/12/18 09/12/18 02:01 02:30 03:00 Temperature Pulse Rate 90 96 H 97 H Pulse Rate [ Anterior Bilateral Throughout] Pulse Rate [ From Monitor] Respiratory 14 16 14 Rate Respiratory Rate [Anterior Bilateral Throughout] Blood Pressure 134/82 132/78 150/81 O2 Sat by Pulse 100 100 100 Oximetry 09/12/18 09/12/18 09/12/18 03:30 03:45 04:00 Temperature 99.8 F H Pulse Rate 98 H 98 H Pulse Rate [ Anterior Bilateral Throughout] Pulse Rate [ 86 From Monitor] Respiratory 14 14 Rate Respiratory Rate [Anterior Bilateral Throughout] Blood Pressure 131/78 123/75 O2 Sat by Pulse 100 100 Oximetry 09/12/18 09/12/18 09/12/18 04:20 04:30 05:00 Temperature Pulse Rate 101 H 103 H 99 H Pulse Rate [ Anterior Bilateral Throughout] Pulse Rate [ From Monitor] Respiratory 18 18 Rate Respiratory Rate [Anterior Bilateral Throughout] Blood Pressure 142/95 128/88 125/79 O2 Sat by Pulse 100 100 100 Oximetry 09/12/18 09/12/18 09/12/18 05:30 06:00 06:30 Temperature Pulse Rate 90 86 84 Pulse Rate [ Anterior Bilateral Throughout] Pulse Rate [ From Monitor] Respiratory 18 18 18 Rate Respiratory Rate [Anterior Bilateral Throughout] Blood Pressure 105/63 95/50 91/61 O2 Sat by Pulse 100 100 100 Oximetry 09/12/18 09/12/18 09/12/18 07:01 08:29 08:35 Temperature Pulse Rate 91 H 100 H Pulse Rate [ 101 H Anterior Bilateral Throughout] Pulse Rate [ From Monitor] Respiratory 18 Rate Respiratory 20 Rate [Anterior Bilateral Throughout] Blood Pressure 116/74 126/78 O2 Sat by Pulse 100 100 Oximetry 09/12/18 08:48 Temperature Pulse Rate Pulse Rate [ 103 H Anterior Bilateral Throughout] Pulse Rate [ From Monitor] Respiratory Rate Respiratory 24 Rate [Anterior Bilateral Throughout] Blood Pressure O2 Sat by Pulse Oximetry Constitutional: asleep Eyes: non-icteric ENT: other (orally intubated and sedated) Neck: supple Effort: normal Ascultation: Bilateral: clear Percussion: Bilateral: not dull Cardiovascular: regular rate and rhythm (sinus tachycardia) Gastrointestinal: soft, non-tender Extremities: no cyanosis, no edema, pink and warm, pulses normal Neurologic: unable to assess (RASS - 2) CBC and BMP: 09/12/18 04:55 09/12/18 04:55 ABG, PT/INR, D-dimer: ABG POC ABG pH 7.369 (7.35-7.45) 09/12/18 04:19 POC ABG pCO2 41.3 (35-45) 09/12/18 04:19 POC ABG pO2 100 (80-105) 09/12/18 04:19 POC ABG HCO3 23.8 (22-26 mml/L) 09/12/18 04:19 POC ABG Total CO2 25 (23-27mmol/L) 09/12/18 04:19 POC ABG O2 Sat 98 09/12/18 04:19 Abnormal lab findings: Abnormal Labs 09/08/18 09/08/18 09/08/18 13:04 13:04 13:04 WBC 13.7 H Hgb Hct Plt Count Lymphocytes % (Manual) 39.0 H Eosinophils # (Manual) POC ABG pH POC ABG pCO2 POC ABG pO2 Sodium Potassium Chloride Carbon Dioxide 15 L BUN Glucose POC Glucose TSH 12.130 H 09/08/18 09/10/18 09/10/18 17:18 00:43 04:17 WBC Hgb Hct Plt Count Lymphocytes % (Manual) Eosinophils # (Manual) POC ABG pH 7.477 H 7.306 L POC ABG pCO2 31.5 L 49.4 H 33.6 L POC ABG pO2 136 H 112 H 124 H Sodium Potassium Chloride Carbon Dioxide BUN Glucose POC Glucose TSH 09/10/18 09/10/18 09/10/18 10:34 10:34 11:41 WBC 21.2 H Hgb Hct Plt Count 125 L Lymphocytes % (Manual) Eosinophils # (Manual) POC ABG pH POC ABG pCO2 POC ABG pO2 Sodium 136 L Potassium Chloride Carbon Dioxide 21 L BUN Glucose 109 H POC Glucose 107 H TSH 09/10/18 09/10/18 09/10/18 19:08 19:59 20:57 WBC Hgb Hct Plt Count Lymphocytes % (Manual) Eosinophils # (Manual) POC ABG pH POC ABG pCO2 POC ABG pO2 Sodium Potassium Chloride Carbon Dioxide BUN Glucose POC Glucose 121 H 122 H 128 H TSH 09/10/18 09/10/18 09/11/18 22:01 23:05 00:01 WBC Hgb Hct Plt Count Lymphocytes % (Manual) Eosinophils # (Manual) POC ABG pH POC ABG pCO2 POC ABG pO2 Sodium Potassium Chloride Carbon Dioxide BUN Glucose POC Glucose 126 H 109 H 136 H TSH 09/11/18 09/11/18 09/11/18 01:04 02:00 02:56 WBC Hgb Hct Plt Count Lymphocytes % (Manual) Eosinophils # (Manual) POC ABG pH POC ABG pCO2 POC ABG pO2 Sodium Potassium Chloride Carbon Dioxide BUN Glucose POC Glucose 128 H 127 H 132 H TSH 09/11/18 09/11/18 09/11/18 03:54 04:57 05:05 WBC 17.0 H Hgb 11.4 L Hct 33.8 L Plt Count 110 L Lymphocytes % (Manual) Eosinophils # (Manual) POC ABG pH 7.462 H POC ABG pCO2 31.2 L POC ABG pO2 109 H Sodium Potassium Chloride Carbon Dioxide BUN Glucose POC Glucose 112 H TSH 09/11/18 09/11/18 09/11/18 05:05 05:16 06:00 WBC Hgb Hct Plt Count Lymphocytes % (Manual) Eosinophils # (Manual) POC ABG pH POC ABG pCO2 POC ABG pO2 Sodium 134 L Potassium 3.2 L Chloride 97.5 L Carbon Dioxide BUN Glucose 144 H POC Glucose 150 H 178 H TSH 09/11/18 09/11/18 09/11/18 06:54 08:01 09:14 WBC Hgb Hct Plt Count Lymphocytes % (Manual) Eosinophils # (Manual) POC ABG pH POC ABG pCO2 POC ABG pO2 Sodium Potassium Chloride Carbon Dioxide BUN Glucose POC Glucose 146 H 116 H 114 H TSH 09/11/18 09/11/18 09/11/18 12:43 17:09 21:31 WBC Hgb Hct Plt Count Lymphocytes % (Manual) Eosinophils # (Manual) POC ABG pH POC ABG pCO2 POC ABG pO2 Sodium Potassium Chloride Carbon Dioxide BUN Glucose POC Glucose 144 H 125 H 141 H TSH 09/12/18 09/12/18 09/12/18 02:05 04:55 04:55 WBC 11.5 H Hgb 11.3 L Hct 34.0 L Plt Count Lymphocytes % (Manual) 43.0 H Eosinophils # (Manual) 0.5 H POC ABG pH POC ABG pCO2 POC ABG pO2 Sodium 136 L Potassium Chloride Carbon Dioxide BUN 8 L Glucose 122 H POC Glucose 140 H TSH 09/12/18 05:35 WBC Hgb Hct Plt Count Lymphocytes % (Manual) Eosinophils # (Manual) POC ABG pH POC ABG pCO2 POC ABG pO2 Sodium Potassium Chloride Carbon Dioxide BUN Glucose POC Glucose 115 H TSH
[2018-09-12] MEDS: FOLVITE PO SCH (09:56)
[2018-09-12] MEDS: VITAMIN B-1 PO SCH (09:56)
[2018-09-12] MEDS: DIPRIVAN 10 MG/ML 1,000 MG/100 ML BOTTLE IV SCH (09:57)
[2018-09-12] MEDS: KEPPRA 1,500 MG in D5W 100 ML IV SCH ×2 (09:58→22:30)
[2018-09-12] MEDS: PEPCID IV SCH ×2 (09:59→22:00)
[2018-09-12] MEDS ORDERED: VITAMIN B-6 PO SCH (11:00)
[2018-09-12] MEDS ORDERED: ISONIAZID PO SCH (11:00)
--- NOTE | 2018-09-12 14:58 | Progress Note ---
Assessment and Plan Cultures: Sputum 09/09/2018 MSSA Sputum 09/10/2018 MSSA Blood culture: no growth Assessment: 1) SIRS: present on admission with tachycardia, leukocytosis, noted later low grade fever, etiology unclear. UA negative. CXR x 3 no consolidations. ? early pneumonia +/- seizures. 2) Possible MSSA tracheobronchitis: CXR x 3 no consolidations, +emphysema changes. Follow up WBC count, possibly reactive from seizures. 3) Acute respiratory failure: intubated. 4) Status Epilepticus: improved. 5) Acute encephalopathy: from seizures 6) ?LTBI: per discussion with pharmacy, apparently family member reported patient is also on INH and B6, OK to resume till additional records available. Treatment is usually for 9 months. Recommendations: - continue IV Cefazolin 2 gm q8 hrs, WBC is likely reactive from seizures and is improving. Plan to stop abx tomorrow. - f/u procalcitonin - apparently family member reported patient is also on INH and B6, OK to resume till additional records available. Treatment is usually for 9 months Alexandra Thompson MD [facility] C: [phone] O: [phone] F: [phone] Subjective Date of service: 09/12/18 Principal diagnosis: acute respiratory failure, seizure event, possibly cut history of dementia, Interval history: No fever. Remains on the vent. Off sedation, seems restless. Objective - Exam Narrative Exam: Physical Exam: Constitutional: drowsy, off sedation, intubated Head, Ears, Nose: Normocephalic, atraumatic. External ears, nose normal Eyes: Conjunctivae/corneas clear. No icterus. No ptosis. Neck: Supple, no meningeal signs Oral: intubated Cardiovascular: S1, S2 normal. Respiratory: Good air entry, clear to auscultation bilaterally GI: Soft, non-tender; bowel sounds normal. No peritoneal signs Musculoskeletal: No pedal edema, no cyanosis. Skin: No rash or abscess Hem/Lymphatic: No palpable cervical or supraclavicular nodes. No lymphangitis Psych: restless Neurological: restless, intubated, on vent - Constitutional Vitals: Vital Signs Temp Pulse Resp BP Pulse Ox 99.4 F 110 H 32 H 118/75 100 09/12/18 12:00 09/12/18 14:00 09/12/18 14:00 09/12/18 14:00 09/12/18 14:00 Temperature -Last 24 Hours Temperature 99.4 F Temperature 97.3 F Temperature 99.8 F Temperature 99.3 F Temperature 99.2 F Temperature 96.9 F - Labs CBC & Chem 7: 09/12/18 04:55 09/12/18 04:55 Labs: Abnormal lab results 09/11/18 09/11/18 09/12/18 Range/Units 17:09 21:31 02:05 WBC (4.5-11.0) K/mm3 Hgb (11.8-15.2) gm/dl Hct (35.5-45.6) % Lymphocytes % (Manual) (13.4-35.0) % Eosinophils # (Manual) (0.0-0.4) K/mm3 Sodium (137-145) mmol/L BUN (9-20) mg/dL Glucose (75-100) mg/dL POC Glucose 125 H 141 H 140 H (70-105) 09/12/18 09/12/18 09/12/18 Range/Units 04:55 04:55 05:35 WBC 11.5 H (4.5-11.0) K/mm3 Hgb 11.3 L (11.8-15.2) gm/dl Hct 34.0 L (35.5-45.6) % Lymphocytes % (Manual) 43.0 H (13.4-35.0) % Eosinophils # (Manual) 0.5 H (0.0-0.4) K/mm3 Sodium 136 L (137-145) mmol/L BUN 8 L (9-20) mg/dL Glucose 122 H (75-100) mg/dL POC Glucose 115 H (70-105) 09/12/18 Range/Units 10:50 WBC (4.5-11.0) K/mm3 Hgb (11.8-15.2) gm/dl Hct (35.5-45.6) % Lymphocytes % (Manual) (13.4-35.0) % Eosinophils # (Manual) (0.0-0.4) K/mm3 Sodium (137-145) mmol/L BUN (9-20) mg/dL Glucose (75-100) mg/dL POC Glucose 149 H (70-105) - Imaging and cardiology Chest x-ray: report reviewed, image reviewed (no pneumonia seen)
[2018-09-12] MEDS: MIDAZOLAM 100 MG in NACL 0.9% 80 ML IV SCH (17:00)
[2018-09-12] MEDS: REMERON PO SCH (22:00)
[2018-09-12] MEDS ORDERED: NON-FORMULARY (Mirtazapine [Mirtazapine] 7.5 MG) PO SCH (22:00)
[2018-09-12] MEDS: LOVENOX SUB-Q SCH (22:00)
[2018-09-13 04:55] LABS: Hematocrit 30.6 % (35.5-45.6); Hemoglobin 10.3 gm/dl (11.8-15.2); Mean Corpuscular HGB Conc 34 % (32-34); Mean Corpuscular Volume 91 fl (84-94); Platelet Count 171 K/mm3 (140-440); Red Blood Count 3.35 M/mm3 (3.65-5.03); Red Cell Distribution Width 13.7 % (13.2-15.2)
--- NOTE | 2018-09-13 04:59 | XRay Report ---
PROCEDURE: XR CHEST 1V AP TECHNIQUE: Chest radiograph single view. HISTORY: follow up respiratory failure COMPARISONS: 09/11/2018, 09/12/2018 . FINDINGS: Left upper extremity PICC is unchanged. Endotracheal tube terminates approximately 7 cm from the john na. Enteric tube courses below the diaphragm and off of the inferior field of view. No mediastinal sh ift. Cardiac silhouette is not enlarged. No pneumothorax, effusion, or focal pulmonary opacity identi fied. No acute skeletal findings. IMPRESSION: Satisfactory appearance of the patient's support apparatus without pneumothorax. This document is electronically signed by Luther Reis MD., September 13 2018 04:57:53 AM ET
[2018-09-13] MEDS: ceFAZolin 2 GM in NACL 0.9% 100 ML IV SCH (05:18)
[2018-09-13 05:30] LABS: BUN/Creatinine Ratio 6; Blood Urea Nitrogen 9 mg/dL (9-20); Calcium 8.5 mg/dL (8.4-10.2); Hemolysis Index 0
[2018-09-13] MEDS: DUONEB *Not for PRN Use IH SCH ×4 (07:42→19:58)
--- NOTE | 2018-09-13 09:08 | Progress Note ---
Assessment and Plan Acute respiratory failure, mechanical ventilation support Seizure episodes. No events this morning. Sedation being tapered down Agitation. Adjust down to patient comfort level, as needed Past medical history dementia Past medical history of conversion disorder.Per RN report History of alcohol abuse. Reportedly no intake prior to admission Emphysema LTBI?. Apparently on INH/thiamine treatment. Dr. Kaba from assisted brought in by family shows that the patient be on treatment at least for the past 2 years Recommendations EEG check Waiting on Neurology follow-up after EEG review Monitor WBC changes may be reactive to seizures. We'll continue to monitor for tracheal bronchitis changes Wean off sedation today, monitor for seizure episodes Maintain extubation precautions Daily morning sedation vacation once off sedation and initiate SBT if deemed appropriate. DVT prophylaxis No clear indication for a LTBI prophylaxis, if treated over 6-9 months . In the context of seizure problems, we'll discontinue INH. Continue Thiamine for now Discussed with family in detail. All questions answered. Critical care time was 31 minutes of [id number]-it-[id number] evaluation and coordination o f care Subjective Date of service: 09/13/18 Principal diagnosis: acute respiratory failure, seizure event, possibly cut history of dementia, Interval history: Arousable and intubated. No obvious seizures. Family at the bedside Objective Vital Signs - 12hr 09/12/18 09/12/18 09/12/18 21:30 22:00 22:30 Temperature Pulse Rate 104 H 108 H 101 H Pulse Rate [ Anterior Bilateral Throughout] Pulse Rate [ From Monitor] Respiratory 18 18 18 Rate Respiratory Rate [Anterior Bilateral Throughout] Blood Pressure 110/63 114/66 110/60 O2 Sat by Pulse 100 100 100 Oximetry 09/12/18 09/12/18 09/13/18 23:00 23:30 00:00 Temperature 98.8 F Pulse Rate 116 H 113 H 110 H Pulse Rate [ Anterior Bilateral Throughout] Pulse Rate [ 108 H From Monitor] Respiratory 18 18 19 Rate Respiratory Rate [Anterior Bilateral Throughout] Blood Pressure 149/79 129/72 117/68 O2 Sat by Pulse 100 100 100 Oximetry 09/13/18 09/13/18 09/13/18 00:15 00:30 01:00 Temperature Pulse Rate 107 H 106 H 106 H Pulse Rate [ Anterior Bilateral Throughout] Pulse Rate [ From Monitor] Respiratory 20 19 Rate Respiratory Rate [Anterior Bilateral Throughout] Blood Pressure 132/81 117/72 130/78 O2 Sat by Pulse 100 100 100 Oximetry 09/13/18 09/13/18 09/13/18 01:30 02:00 02:30 Temperature Pulse Rate 102 H 100 H 102 H Pulse Rate [ Anterior Bilateral Throughout] Pulse Rate [ From Monitor] Respiratory 18 18 18 Rate Respiratory Rate [Anterior Bilateral Throughout] Blood Pressure 122/76 141/74 137/75 O2 Sat by Pulse 100 100 100 Oximetry 09/13/18 09/13/18 09/13/18 03:00 03:30 04:00 Temperature 98.0 F Pulse Rate 103 H 99 H 98 H Pulse Rate [ Anterior Bilateral Throughout] Pulse Rate [ 98 H From Monitor] Respiratory 18 18 18 Rate Respiratory Rate [Anterior Bilateral Throughout] Blood Pressure 122/68 121/68 111/67 O2 Sat by Pulse 100 100 100 Oximetry 09/13/18 09/13/18 09/13/18 04:30 05:01 05:06 Temperature Pulse Rate 94 H 96 H 91 H Pulse Rate [ Anterior Bilateral Throughout] Pulse Rate [ From Monitor] Respiratory 18 18 Rate Respiratory Rate [Anterior Bilateral Throughout] Blood Pressure 98/56 105/65 105/65 O2 Sat by Pulse 100 100 100 Oximetry 09/13/18 09/13/18 09/13/18 05:30 06:00 06:30 Temperature Pulse Rate 91 H 91 H 101 H Pulse Rate [ Anterior Bilateral Throughout] Pulse Rate [ From Monitor] Respiratory 18 18 19 Rate Respiratory Rate [Anterior Bilateral Throughout] Blood Pressure 104/70 111/72 145/88 O2 Sat by Pulse 100 100 100 Oximetry 09/13/18 09/13/18 09/13/18 07:00 07:30 07:46 Temperature Pulse Rate 92 H 89 Pulse Rate [ 88 Anterior Bilateral Throughout] Pulse Rate [ From Monitor] Respiratory 18 18 Rate Respiratory 18 Rate [Anterior Bilateral Throughout] Blood Pressure 98/63 87/57 O2 Sat by Pulse 100 100 Oximetry 09/13/18 09/13/18 07:48 08:00 Temperature 98.2 F Pulse Rate 98 H Pulse Rate [ 86 Anterior Bilateral Throughout] Pulse Rate [ From Monitor] Respiratory 18 Rate Respiratory 18 Rate [Anterior Bilateral Throughout] Blood Pressure 130/83 O2 Sat by Pulse 100 Oximetry Constitutional: asleep Eyes: non-icteric ENT: other (intubated) Neck: supple Effort: normal Ascultation: Bilateral: clear Percussion: Bilateral: not dull Cardiovascular: regular rate and rhythm (sinus tachycardia) Gastrointestinal: soft, non-tender Extremities: no cyanosis, no edema, pink and warm, pulses normal Neurologic: other (RASS score 0 to -1) CBC and BMP: 09/13/18 04:30 09/13/18 04:30 ABG, PT/INR, D-dimer: ABG POC ABG pH 7.457 (7.35-7.45) H 09/13/18 05:41 POC ABG pCO2 36.3 (35-45) 09/13/18 05:41 POC ABG pO2 113 (80-105) H 09/13/18 05:41 POC ABG HCO3 25.7 (22-26 mml/L) 09/13/18 05:41 POC ABG Total CO2 27 (23-27mmol/L) 09/13/18 05:41 POC ABG O2 Sat 99 09/13/18 05:41 Abnormal lab findings: Abnormal Labs 09/08/18 09/08/18 09/08/18 13:04 13:04 13:04 WBC 13.7 H RBC Hgb Hct Plt Count Lymphocytes % (Manual) 39.0 H Eosinophils # (Manual) POC ABG pH POC ABG pCO2 POC ABG pO2 Sodium Potassium Chloride Carbon Dioxide 15 L BUN Glucose POC Glucose TSH 12.130 H 09/08/18 09/10/18 09/10/18 17:18 00:43 04:17 WBC RBC Hgb Hct Plt Count Lymphocytes % (Manual) Eosinophils # (Manual) POC ABG pH 7.477 H 7.306 L POC ABG pCO2 31.5 L 49.4 H 33.6 L POC ABG pO2 136 H 112 H 124 H Sodium Potassium Chloride Carbon Dioxide BUN Glucose POC Glucose TSH 09/10/18 09/10/18 09/10/18 10:34 10:34 11:41 WBC 21.2 H RBC Hgb Hct Plt Count 125 L Lymphocytes % (Manual) Eosinophils # (Manual) POC ABG pH POC ABG pCO2 POC ABG pO2 Sodium 136 L Potassium Chloride Carbon Dioxide 21 L BUN Glucose 109 H POC Glucose 107 H TSH 09/10/18 09/10/18 09/10/18 19:08 19:59 20:57 WBC RBC Hgb Hct Plt Count Lymphocytes % (Manual) Eosinophils # (Manual) POC ABG pH POC ABG pCO2 POC ABG pO2 Sodium Potassium Chloride Carbon Dioxide BUN Glucose POC Glucose 121 H 122 H 128 H TSH 09/10/18 09/10/18 09/11/18 22:01 23:05 00:01 WBC RBC Hgb Hct Plt Count Lymphocytes % (Manual) Eosinophils # (Manual) POC ABG pH POC ABG pCO2 POC ABG pO2 Sodium Potassium Chloride Carbon Dioxide BUN Glucose POC Glucose 126 H 109 H 136 H TSH 09/11/18 09/11/18 09/11/18 01:04 02:00 02:56 WBC RBC Hgb Hct Plt Count Lymphocytes % (Manual) Eosinophils # (Manual) POC ABG pH POC ABG pCO2 POC ABG pO2 Sodium Potassium Chloride Carbon Dioxide BUN Glucose POC Glucose 128 H 127 H 132 H TSH 09/11/18 09/11/18 09/11/18 03:54 04:57 05:05 WBC 17.0 H RBC Hgb 11.4 L Hct 33.8 L Plt Count 110 L Lymphocytes % (Manual) Eosinophils # (Manual) POC ABG pH 7.462 H POC ABG pCO2 31.2 L POC ABG pO2 109 H Sodium Potassium Chloride Carbon Dioxide BUN Glucose POC Glucose 112 H TSH 09/11/18 09/11/18 09/11/18 05:05 05:16 06:00 WBC RBC Hgb Hct Plt Count Lymphocytes % (Manual) Eosinophils # (Manual) POC ABG pH POC ABG pCO2 POC ABG pO2 Sodium 134 L Potassium 3.2 L Chloride 97.5 L Carbon Dioxide BUN Glucose 144 H POC Glucose 150 H 178 H TSH 09/11/18 09/11/18 09/11/18 06:54 08:01 09:14 WBC RBC Hgb Hct Plt Count Lymphocytes % (Manual) Eosinophils # (Manual) POC ABG pH POC ABG pCO2 POC ABG pO2 Sodium Potassium Chloride Carbon Dioxide BUN Glucose POC Glucose 146 H 116 H 114 H TSH 09/11/18 09/11/18 09/11/18 12:43 17:09 21:31 WBC RBC Hgb Hct Plt Count Lymphocytes % (Manual) Eosinophils # (Manual) POC ABG pH POC ABG pCO2 POC ABG pO2 Sodium Potassium Chloride Carbon Dioxide BUN Glucose POC Glucose 144 H 125 H 141 H TSH 09/12/18 09/12/18 09/12/18 02:05 04:55 04:55 WBC 11.5 H RBC Hgb 11.3 L Hct 34.0 L Plt Count Lymphocytes % (Manual) 43.0 H Eosinophils # (Manual) 0.5 H POC ABG pH POC ABG pCO2 POC ABG pO2 Sodium 136 L Potassium Chloride Carbon Dioxide BUN 8 L Glucose 122 H POC Glucose 140 H TSH 09/12/18 09/12/18 09/12/18 05:35 10:50 13:15 WBC RBC Hgb Hct Plt Count Lymphocytes % (Manual) Eosinophils # (Manual) POC ABG pH POC ABG pCO2 POC ABG pO2 Sodium Potassium Chloride Carbon Dioxide BUN Glucose POC Glucose 115 H 149 H 133 H TSH 09/12/18 09/12/18 09/13/18 18:05 21:31 02:09 WBC RBC Hgb Hct Plt Count Lymphocytes % (Manual) Eosinophils # (Manual) POC ABG pH POC ABG pCO2 POC ABG pO2 Sodium Potassium Chloride Carbon Dioxide BUN Glucose POC Glucose 132 H 142 H 120 H TSH 09/13/18 09/13/18 09/13/18 04:30 04:30 05:41 WBC 12.3 H RBC 3.35 L Hgb 10.3 L Hct 30.6 L Plt Count Lymphocytes % (Manual) Eosinophils # (Manual) POC ABG pH 7.457 H POC ABG pCO2 POC ABG pO2 113 H Sodium Potassium Chloride Carbon Dioxide BUN Glucose 117 H POC Glucose TSH
[2018-09-13] MEDS: VITAMIN B-1 PO SCH (10:13)
[2018-09-13] MEDS: PEPCID PO SCH ×2 (10:13→21:20)
[2018-09-13] MEDS: FOLVITE PO SCH (10:13)
[2018-09-13] MEDS: KEPPRA 1,500 MG in D5W 100 ML IV SCH ×2 (10:13→22:16)
--- NOTE | 2018-09-13 10:43 | Progress Note ---
Assessment and Plan Cultures: Sputum 09/09/2018 MSSA Sputum 09/10/2018 MSSA Blood culture: no growth Assessment: 1) SIRS: present on admission with tachycardia, leukocytosis, noted later low grade fever, etiology unclear. UA negative. CXR x 3 no consolidations. ? early pneumonia +/- seizures. 2) Possible MSSA tracheobronchitis v/s colonization: CXR without consolidations, +emphysema changes. Elevated WBC count, possibly reactive from seizures. Will d/c Cefazolin today. 3) Acute respiratory failure: intubated. 4) Status Epilepticus: improved. 5) Acute encephalopathy: from seizures 6) ?LTBI: per discussion with pharmacy, treatment was initiated in 2015, hence INH and B6 were d/tristin. Recommendations: - discontinued IV Cefazolin - WBC is likely reactive from seizures Will follow. Alexandra Thompson MD [facility] C: [phone] O: [phone] F: [phone] Subjective Date of service: 09/13/18 Principal diagnosis: acute respiratory failure, seizure event, possibly cut history of dementia, Interval history: No fever. Stable on the vent, plans for weaning and extubation soon. More awake, but doesn't consistently follow commands. Objective - Exam Narrative Exam: Physical Exam: Constitutional: More awake, but doesn't consistently follow commands. intubated Head, Ears, Nose: Normocephalic, atraumatic. External ears, nose normal Eyes: Conjunctivae/corneas clear. No icterus. No ptosis. Neck: Supple, no meningeal signs Oral: intubated Cardiovascular: S1, S2 normal. Respiratory: Good air entry, clear to auscultation bilaterally GI: Soft, non-tender; bowel sounds normal. No peritoneal signs Musculoskeletal: No pedal edema, no cyanosis. Skin: No rash or abscess Hem/Lymphatic: No palpable cervical or supraclavicular nodes. No lymphangitis Psych: no agitation Neurological: More awake, but doesn't consistently follow commands, intubated, on vent - Constitutional Vitals: Vital Signs Temp Pulse Resp BP Pulse Ox 98.2 F 102 H 19 132/81 100 09/13/18 08:00 09/13/18 10:00 09/13/18 10:00 09/13/18 10:00 09/13/18 10:00 Temperature -Last 24 Hours Temperature 98.2 F Temperature 98.0 F Temperature 98.8 F Temperature 99.3 F Temperature 99.3 F Temperature 97.8 F Temperature 99.4 F - Labs CBC & Chem 7: 09/13/18 04:30 09/13/18 04:30 Labs: Abnormal lab results 09/12/18 09/12/18 09/12/18 Range/Units 10:50 13:15 18:05 WBC (4.5-11.0) K/mm3 RBC (3.65-5.03) M/mm3 Hgb (11.8-15.2) gm/dl Hct (35.5-45.6) % POC ABG pH (7.35-7.45) POC ABG pO2 (80-105) Glucose (75-100) mg/dL POC Glucose 149 H 133 H 132 H (70-105) 09/12/18 09/13/18 09/13/18 Range/Units 21:31 02:09 04:30 WBC 12.3 H (4.5-11.0) K/mm3 RBC 3.35 L (3.65-5.03) M/mm3 Hgb 10.3 L (11.8-15.2) gm/dl Hct 30.6 L (35.5-45.6) % POC ABG pH (7.35-7.45) POC ABG pO2 (80-105) Glucose (75-100) mg/dL POC Glucose 142 H 120 H (70-105) 09/13/18 09/13/18 Range/Units 04:30 05:41 WBC (4.5-11.0) K/mm3 RBC (3.65-5.03) M/mm3 Hgb (11.8-15.2) gm/dl Hct (35.5-45.6) % POC ABG pH 7.457 H (7.35-7.45) POC ABG pO2 113 H (80-105) Glucose 117 H (75-100) mg/dL POC Glucose (70-105) - Imaging and cardiology Chest x-ray: report reviewed, image reviewed (stable, ET tube +. no pneumonia / infiltrate)
[2018-09-13] MEDS: ATIVAN IV PRN ×2 (16:12→21:17)
--- NOTE | 2018-09-13 17:22 | Progress Note ---
Assessment and Plan Disposition Plan: discuss with [facility]. Total Time Spent with Patient (Minutes): 31 - Patient Problems (1) SIRS (systemic inflammatory response syndrome) Current Visit: Yes Status: Acute Plan to address problem: I think most likely secondary to status epilepticus and seizure disorder. Fever curve has returned. Slightly elevated leukocytosis at 12.3. MAXIMUM TEMPERATURE 98.7 afebrile. MSSA. Cefzil and DC today (2) Acute respiratory failure with hypoxia Current Visit: Yes Status: Acute Plan to address problem: Acute respiratory failure patient actually reintubated. Was questionable aspiration versus mucous plug. Wean as tolerated. Does not appear to be septic at this time. (3) Seizure Current Visit: Yes Status: Acute Plan to address problem: Status seizure disorder most likely evidence of SIRS. Also anoxia with underlying dementia. Continue Keppra. (4) Syncope Current Visit: No Status: Acute (5) Dementia associated with alcoholism Current Visit: No Status: Chronic (6) UTI (urinary tract infection) Current Visit: Yes Status: Acute (7) Alcohol abuse Current Visit: No Status: Chronic Plan to address problem: She dementia poor cognition secondary to alcohol abuse. Has progressively gotten worse since at intermediate facility. History Interval history: 67-year-old from intermediate facility with seizure disorder advanced dementia COPD presents with acute seizure status post fall. Patient at present remains intubated and nonverbal. Not at baseline from senior living. Fever curve is down today. Otherwise no new events over p.m. No active seizures at this time. Hospitalist Physical - Constitutional Vitals: Temp Pulse Resp BP Pulse Ox 97.7 F 99 H 21 125/74 99 09/13/18 16:00 09/13/18 16:00 09/13/18 16:00 09/13/18 16:00 09/13/18 16:00 General appearance: Present: no acute distress - EENT ENT: other (eyes closed all rolling difficult to appreciate.) - Neck Neck: Present: supple, normal ROM - Respiratory Respiratory: bilateral: diminished (poor respiratory effort), rhonchi - Extremities Extremities: pulses intact, No edema Peripheral Pulses: within normal limits - Abdominal General gastrointestinal: non-tender, non-distended, hypoactive bowel sounds - Neurologic Neurologic: other (poor cognition altered. Encephalopathic.) Results - Labs CBC & Chem 7: 09/13/18 04:30 09/13/18 04:30 Labs: Laboratory Last Values WBC 12.3 K/mm3 (4.5-11.0) H 09/13/18 04:30 RBC 3.35 M/mm3 (3.65-5.03) L 09/13/18 04:30 Hgb 10.3 gm/dl (11.8-15.2) L 09/13/18 04:30 Hct 30.6 % (35.5-45.6) L 09/13/18 04:30 MCV 91 fl (84-94) 09/13/18 04:30 MCH 31 pg (28-32) 09/13/18 04:30 MCHC 34 % (32-34) 09/13/18 04:30 RDW 13.7 % (13.2-15.2) 09/13/18 04:30 Plt Count 171 K/mm3 (140-440) 09/13/18 04:30 Lymph # [employer] 09/12/18 04:55 Add Manual Diff Complete 09/12/18 04:55 Total Counted 100 09/12/18 04:55 Seg Neuts % (Manual) 50.0 % (40.0-70.0) 09/12/18 04:55 0 % 09/12/18 04:55 43.0 % (13.4-35.0) H 09/12/18 04:55 Reactive Lymphs % (Man) 0 % 09/12/18 04:55 3.0 % (0.0-7.3) 09/12/18 04:55 4.0 % (0.0-4.3) 09/12/18 04:55 0 % (0.0-1.8) 09/12/18 04:55 0 % 09/12/18 04:55 0 % 09/12/18 04:55 0 % 09/12/18 04:55 0 % 09/12/18 04:55 Nucleated RBC % Not Reportable 09/12/18 04:55 Seg Neutrophils # Man 5.8 K/mm3 (1.8-7.7) 09/12/18 04:55 Band Neutrophils # 0.0 K/mm3 09/12/18 04:55 4.9 K/mm3 (1.2-5.4) 09/12/18 04:55 Abs React Lymphs (Man) 0.0 K/mm3 09/12/18 04:55 0.3 K/mm3 (0.0-0.8) 09/12/18 04:55 0.5 K/mm3 (0.0-0.4) H 09/12/18 04:55 0.0 K/mm3 (0.0-0.1) 09/12/18 04:55 0.0 K/mm3 09/12/18 04:55 0.0 K/mm3 09/12/18 04:55 0.0 K/mm3 09/12/18 04:55 Blast Cells # 0.0 K/mm3 09/12/18 04:55 WBC Morphology Not Reportable 09/12/18 04:55 Hypersegmented Neuts Not Reportable 09/12/18 04:55 Hyposegmented Neuts Not Reportable 09/12/18 04:55 Hypogranular Neuts Not Reportable 09/12/18 04:55 Not Reportable 09/12/18 04:55 Not Reportable 09/12/18 04:55 Not Reportable 09/12/18 04:55 Not Reportable 09/12/18 04:55 Not Reportable 09/12/18 04:55 Not Reportable 09/12/18 04:55 Consistent w auto 09/12/18 04:55 Not Reportable 09/12/18 04:55 Plt Clumps, EDTA Not Reportable 09/12/18 04:55 Not Reportable 09/12/18 04:55 Rare 09/12/18 04:55 Not Reportable 09/12/18 04:55 Plt Morphology Comment Not Reportable 09/12/18 04:55 RBC Morphology Not Reportable 09/12/18 04:55 Dimorphic RBCs Not Reportable 09/12/18 04:55 Not Reportable 09/12/18 04:55 Not Reportable 09/12/18 04:55 Not Reportable 09/12/18 04:55 Not Reportable 09/12/18 04:55 Not Reportable 09/12/18 04:55 Not Reportable 09/12/18 04:55 Not Reportable 09/12/18 04:55 Not Reportable 09/12/18 04:55 Not Reportable 09/12/18 04:55 Not Reportable 09/12/18 04:55 Not Reportable 09/12/18 04:55 Not Reportable 09/12/18 04:55 Not Reportable 09/12/18 04:55 Not Reportable 09/12/18 04:55 Not Reportable 09/12/18 04:55 Not Reportable 09/12/18 04:55 Not Reportable 09/12/18 04:55 Not Reportable 09/12/18 04:55 Not Reportable 09/12/18 04:55 Acanthocytes (Spur) Not Reportable 09/12/18 04:55 Rouleaux Not Reportable 09/12/18 04:55 Not Reportable 09/12/18 04:55 Not Reportable 09/12/18 04:55 Not Reportable 09/12/18 04:55 Not Reportable 09/12/18 04:55 Hem Pathologist Commnt No 09/12/18 04:55 POC ABG pH 7.457 (7.35-7.45) H 09/13/18 05:41 POC ABG pCO2 36.3 (35-45) 09/13/18 05:41 POC ABG pO2 113 (80-105) H 09/13/18 05:41 POC ABG HCO3 25.7 (22-26 mml/L) 09/13/18 05:41 POC ABG Total CO2 27 (23-27mmol/L) 09/13/18 05:41 POC ABG O2 Sat 99 09/13/18 05:41 POC ABG Base Excess 2 ((-2) - (+3)mmol/L) 09/13/18 05:41 28 % 09/13/18 05:41 Sodium 143 mmol/L (137-145) D 09/13/18 04:30 Potassium 3.6 mmol/L (3.6-5.0) 09/13/18 04:30 Chloride 105.3 mmol/L (98-107) 09/13/18 04:30 Carbon Dioxide 27 mmol/L (22-30) 09/13/18 04:30 14 mmol/L 09/13/18 04:30 BUN 9 mg/dL (9-20) 09/13/18 04:30 1.4 mg/dL (0.8-1.5) 09/13/18 04:30 Estimated GFR > 60 ml/min 09/13/18 04:30 6 % 09/13/18 04:30 Glucose 117 mg/dL (75-100) H 09/13/18 04:30 POC Glucose 164 (70-105) H 09/13/18 11:07 Calcium 8.5 mg/dL (8.4-10.2) 09/13/18 04:30 Phosphorus 2.90 mg/dL (2.5-4.5) 09/11/18 07:10 Magnesium 1.80 mg/dL (1.7-2.3) 09/11/18 07:10 0.20 mg/dL (0.1-1.2) 09/08/18 13:04 AST 27 units/L (5-40) 09/08/18 13:04 ALT 10 units/L (7-56) 09/08/18 13:04 64 units/L (35-129) 09/08/18 13:04 109 units/L (55-170) 09/08/18 13:04 7.0 g/dL (6.3-8.2) 09/08/18 13:04 3.9 g/dL (3.9-5) 09/08/18 13:04 1.3 % 09/08/18 13:04 TSH 3.820 mlU/mL (0.270-4.200) 09/09/18 11:50 Free T4 1.22 ng/dL (0.76-1.46) 09/09/18 11:50 Yellow (Yellow) 09/08/18 15:20 Slightly-cloudy (Clear) 09/08/18 15:20 5.0 (5.0-7.0) 09/08/18 15:20 Ur Specific Given 1.009 (1.003-1.030) 09/08/18 15:20 <15 mg/dl mg/dL (Negative) 09/08/18 15:20 Neg mg/dL (Negative) 09/08/18 15:20 Neg mg/dL (Negative) 09/08/18 15:20 Neg (Negative) 09/08/18 15:20 Neg (Negative) 09/08/18 15:20 Neg (Negative) 09/08/18 15:20 < 2.0 mg/dL (<2.0) 09/08/18 15:20 Ur Leukocyte Esterase Neg (Negative) 09/08/18 15:20 1.0 /HPF (0.0-6.0) 09/08/18 15:20 3.0 /HPF (0.0-6.0) 09/08/18 15:20 U Epithel Cells (Auto) < 1.0 /HPF (0-13.0) 09/08/18 15:20 Hyaline Casts 1 /LPF 09/08/18 15:20 Few /HPF 09/08/18 15:20 Presumptive negative 09/08/18 15:21 Presumptive negative 09/08/18 15:21 Ur Barbiturates Screen Presumptive negative 09/08/18 15:21 Ur Phencyclidine Scrn Presumptive negative 09/08/18 15:21 Ur Amphetamines Screen Presumptive negative 09/08/18 15:21 U Benzodiazepines Scrn Presumptive positive 09/08/18 15:21 Presumptive negative 09/08/18 15:21 U Marijuana (THC) Screen Presumptive negative 09/08/18 15:21 Disclamer 09/08/18 15:21 Plasma/Serum Alcohol < 0.01 % (0-0.07) 09/08/18 13:04 - Imaging and Cardiology Chest x-ray: image reviewed CT Scan - head: image reviewed (ct spine) Active Medications - Current Medications Current Medications: Generic Name Dose Route Start Last Admin Trade Name Freq PRN Reason Stop Dose Admin Acetaminophen 650 mg 09/10/18 21:07 Tylenol FEEDTUBE Q6H PRN Fever >101, Mild Pain (1-3) Albuterol 2.5 mg 09/09/18 07:28 Proventil IH Q4HRT PRN Shortness Of Breath Albuterol/Ipratropium 1 ampul 09/09/18 08:00 09/13/18 15:43 Duoneb *Not For Prn Use* IH 1 ampul QIDRT BALDEMAR Administration Lipase/Protease/Amylase 1 each 09/09/18 16:12 Pancrekingsley Rodriguez 10,500 Unit FEEDTUBE PRN PRN For Clogged Feeding Tube Enoxaparin Sodium 40 mg 09/09/18 22:00 09/12/18 22:00 Lovenox SUB-Q 40 mg QDAY@2200 BALDEMAR Administration Famotidine 20 mg 09/13/18 10:00 09/13/18 10:13 Pepcid PO 20 mg BID BALDEMAR Administration Folic Acid 1 mg 09/12/18 10:00 09/13/18 10:13 Folvite PO 1 mg QDAY BALDEMAR Administration Hydrophilic Ointment 1 applic 09/08/18 13:00 Vaseline Lip Therapy TP Q2HR PRN Dry Lips Midazolam HCl 100 mg/ Sodium 100 mls @ 2 mls/hr 09/08/18 14:00 09/13/18 08:00 Chloride IV 0 mg/hr TITR BALDEMAR 0 mls/hr Titration Protocol 2 MG/HR Fentanyl Citrate 2,000 mcg in 100 mls @ 3.2 mls/hr 09/08/18 15:00 09/09/18 13:25 Fentanyl Drip Premix IV 0 mcg/kg/hr TITR BALDEMAR 0 mls/hr Titration Protocol 1 MCG/KG/HR Propofol 1,000 mg in 100 mls @ 1.92 mls/hr 09/10/18 10:00 09/13/18 08:16 Diprivan 10 Mg/Ml IV 0 mcg/kg/min TITR BALDEMAR 0 mls/hr Titration Protocol 5 MCG/KG/MIN Levetiracetam 1,500 mg/ 115 mls @ 400 mls/hr 09/11/18 11:00 09/13/18 10:13 Dextrose IV 09/13/18 23:59 400 mls/hr Q12HR BALDEMAR Administration Levetiracetam 1,500 mg 09/14/18 10:00 Keppra PO BID BALDEMAR Lorazepam 2 mg 09/11/18 14:29 09/13/18 16:12 Ativan IV 2 mg Q6H PRN Administration breakthrough seizures/AGITATIO Midazolam HCl 2 mg 09/08/18 13:00 Versed IV Q10MIN PRN Sedation Mirtazapine 7.5 mg 09/12/18 22:00 09/12/18 22:00 Remeron PO 7.5 mg QHS BALDEMAR Administration Multi-Ingred Cream/Lotion/Oil/Oint 1 applic 09/08/18 13:00 Artificial Tears Ophth Oint OU Q4HR PRN Dry Eye(s) Simple Syrup 15 ml 09/09/18 16:12 Simple Syrup FEEDTUBE PRN PRN Hypoglycemia Simple Syrup 30 ml 09/09/18 16:12 Simple Syrup FEEDTUBE PRN PRN Hypoglycemia Sodium Bicarbonate 325 mg 06/08/19 16:12 Sodium Bicarbonate FEEDTUBE PRN PRN For Clogged Feeding Tube Thiamine HCl 100 mg 09/12/18 10:00 09/13/18 10:13 Vitamin B-1 PO 100 mg QDAY BALDEMAR Administration Nutrition/Malnutrition Assess - Dietary Evaluation Nutrition/Malnutrition Findings: Nutrition Notes Start: 09/09/18 16:04 Freq: Status: Active Protocol: Document 09/12/18 17:04 BERENICE (Rec: 09/12/18 17:06 BERENICE [email or web address] [email or web address]) Nutrition Notes Initial or Follow up Brief Note Current Diet TF - Osmolite 1.5 at 50ml/hr Labs/Tests Na 136 Pertinent Medications Folic acid, Isoniazid, Pyridoxine, Thiamine Subjective/Other Information TF started and currently infusing at 40ml/hr. Propofol on hold. Percent of energy/protein needs met: 87% energy 80% pro Nutrition Intervention Follow-Up By: 09/14/18 Additional Comments F/U: TF goal rate/tolerance, vent status
[2018-09-13] MEDS: LOVENOX SUB-Q SCH (21:20)
[2018-09-13] MEDS: REMERON PO SCH (21:20)
--- NOTE | 2018-09-14 04:16 | XRay Report ---
PROCEDURE: XR CHEST 1V AP TECHNIQUE: Chest radiograph single view. HISTORY: follow up respiratory failure COMPARISONS: September 13, 2018 . FINDINGS: Heart: Normal. Mediastinum/Vessels: Normal. Lungs/Pleural space: Lungs are expanded. There are no infiltrates, effusions or pneumothoraces.. Bony thorax: No acute osseous abnormality. Life support devices: The tip of the endotracheal tube is 6 cm above the mika. The NG tube is in th e stomach. There is a left-sided PICC line. The tip is in the superior vena cava.. IMPRESSION: Heart size is normal.. Lungs are expanded. There are no infiltrates, effusions or pneumothoraces.. The tip of the endotracheal tube is 6 cm above the mika. The NG tube is in the stomach. There is a left-sided PICC line. The tip is in the superior vena cava.. This document is electronically signed by Roberto Solo MD., September 14 2018 04:15:19 AM ET
[2018-09-14 07:34] LABS: BUN/Creatinine Ratio 8; Blood Urea Nitrogen 11 mg/dL (9-20); Calcium 8.9 mg/dL (8.4-10.2); Hemolysis Index 0
[2018-09-14] MEDS: ATIVAN IV PRN ×3 (08:01→23:36)
--- NOTE | 2018-09-14 09:11 | Progress Note ---
Assessment and Plan Acute respiratory failure, mechanical ventilation support Seizure episodes. No events this morning. Sedation being tapered down Agitation. Adjust down to patient comfort level, as needed Past medical history dementia Past medical history of conversion disorder.Per RN report History of alcohol abuse. Reportedly no intake prior to admission Emphysema LTBI?. Apparently on INH/thiamine treatment. Dr. Kaba from group home brought in by family shows that the patient be on treatment at least for the past 2 years Recommendations Patient awake, episode breathing index was 67-80 , some trend to low tidal volumes at rest but, voluntarily, up to 550 mL Monitor WBC, any fever Check EEG report when available, neurology follow-up comments. No seizures at this point Maintain extubation precautions Daily morning sedation vacation once off sedation and initiate SBT if deemed appropriate. DVT prophylaxis No clear indication for a LTBI prophylaxis, if treated over 6-9 months . In the context of seizure problems, we'll discontinue INH. Continue Thiamine for now We're using Ativan when necessary for agitation in view of restriction with Haldol Discussed with staff in detail. All questions answered. Critical care time was 31 minutes of [id number] evaluation and coordination of care Subjective Date of service: 09/14/18 Principal diagnosis: acute respiratory failure, seizure, history of dementia, Interval history: Arousable and intubated. No obvious seizures. Family at the bedside Objective Vital Signs - 12hr 09/13/18 09/13/18 09/13/18 21:30 22:00 22:30 Temperature Pulse Rate 101 H 100 H 105 H Pulse Rate [ From Monitor] Respiratory 17 15 16 Rate Blood Pressure 125/78 120/77 131/79 O2 Sat by Pulse 99 100 98 Oximetry 09/13/18 09/13/18 09/13/18 23:00 23:15 23:30 Temperature Pulse Rate 96 H 97 H 104 H Pulse Rate [ From Monitor] Respiratory 18 18 17 Rate Blood Pressure 95/65 109/71 125/77 O2 Sat by Pulse 100 100 100 Oximetry 09/14/18 09/14/18 09/14/18 00:00 00:30 01:00 Temperature 98.9 F Pulse Rate 93 H 93 H 93 H Pulse Rate [ 92 H From Monitor] Respiratory 18 18 17 Rate Blood Pressure 92/61 110/68 87/66 O2 Sat by Pulse 100 100 100 Oximetry 09/14/18 09/14/18 09/14/18 01:30 02:00 02:30 Temperature Pulse Rate 89 88 90 Pulse Rate [ From Monitor] Respiratory 18 18 18 Rate Blood Pressure 96/61 102/62 85/53 O2 Sat by Pulse 100 99 99 Oximetry 09/14/18 09/14/18 09/14/18 03:00 03:30 03:42 Temperature Pulse Rate 97 H 96 H 99 H Pulse Rate [ From Monitor] Respiratory 24 21 Rate Blood Pressure 123/83 213/171 125/73 O2 Sat by Pulse 100 100 100 Oximetry 09/14/18 09/14/18 09/14/18 03:58 04:00 04:30 Temperature 98.1 F Pulse Rate 91 H 89 Pulse Rate [ 100 H From Monitor] Respiratory 18 18 Rate Blood Pressure 116/71 114/65 O2 Sat by Pulse 100 100 Oximetry 09/14/18 09/14/18 09/14/18 05:01 05:30 06:00 Temperature Pulse Rate 80 107 H 95 H Pulse Rate [ From Monitor] Respiratory 18 16 18 Rate Blood Pressure 134/70 149/89 118/72 O2 Sat by Pulse 100 100 100 Oximetry 09/14/18 06:30 Temperature Pulse Rate 90 Pulse Rate [ From Monitor] Respiratory 18 Rate Blood Pressure 86/52 O2 Sat by Pulse 99 Oximetry Constitutional: asleep Eyes: non-icteric ENT: other (intubated) Neck: supple Effort: normal Ascultation: Bilateral: clear Percussion: Bilateral: not dull Cardiovascular: regular rate and rhythm (sinus tachycardia) Gastrointestinal: soft, non-tender Extremities: no cyanosis, no edema, pink and warm, pulses normal Neurologic: other (RASS score 0 to -1) CBC and BMP: 09/13/18 04:30 09/14/18 07:14 ABG, PT/INR, D-dimer: ABG POC ABG pH 7.534 (7.35-7.45) H 09/14/18 04:00 POC ABG pCO2 33.6 (35-45) L 09/14/18 04:00 POC ABG pO2 111 (80-105) H 09/14/18 04:00 POC ABG HCO3 28.3 (22-26 mml/L) 09/14/18 04:00 POC ABG Total CO2 29 (23-27mmol/L) 09/14/18 04:00 POC ABG O2 Sat 99 09/14/18 04:00 Abnormal lab findings: Abnormal Labs 09/08/18 09/08/18 09/08/18 13:04 13:04 13:04 WBC 13.7 H RBC Hgb Hct Plt Count Lymphocytes % (Manual) 39.0 H Eosinophils # (Manual) POC ABG pH POC ABG pCO2 POC ABG pO2 Sodium Potassium Chloride Carbon Dioxide 15 L BUN Glucose POC Glucose TSH 12.130 H 09/08/18 09/10/18 09/10/18 17:18 00:43 04:17 WBC RBC Hgb Hct Plt Count Lymphocytes % (Manual) Eosinophils # (Manual) POC ABG pH 7.477 H 7.306 L POC ABG pCO2 31.5 L 49.4 H 33.6 L POC ABG pO2 136 H 112 H 124 H Sodium Potassium Chloride Carbon Dioxide BUN Glucose POC Glucose TSH 09/10/18 09/10/18 09/10/18 10:34 10:34 11:41 WBC 21.2 H RBC Hgb Hct Plt Count 125 L Lymphocytes % (Manual) Eosinophils # (Manual) POC ABG pH POC ABG pCO2 POC ABG pO2 Sodium 136 L Potassium Chloride Carbon Dioxide 21 L BUN Glucose 109 H POC Glucose 107 H TSH 09/10/18 09/10/18 09/10/18 19:08 19:59 20:57 WBC RBC Hgb Hct Plt Count Lymphocytes % (Manual) Eosinophils # (Manual) POC ABG pH POC ABG pCO2 POC ABG pO2 Sodium Potassium Chloride Carbon Dioxide BUN Glucose POC Glucose 121 H 122 H 128 H TSH 09/10/18 09/10/18 09/11/18 22:01 23:05 00:01 WBC RBC Hgb Hct Plt Count Lymphocytes % (Manual) Eosinophils # (Manual) POC ABG pH POC ABG pCO2 POC ABG pO2 Sodium Potassium Chloride Carbon Dioxide BUN Glucose POC Glucose 126 H 109 H 136 H TSH 09/11/18 09/11/18 09/11/18 01:04 02:00 02:56 WBC RBC Hgb Hct Plt Count Lymphocytes % (Manual) Eosinophils # (Manual) POC ABG pH POC ABG pCO2 POC ABG pO2 Sodium Potassium Chloride Carbon Dioxide BUN Glucose POC Glucose 128 H 127 H 132 H TSH 09/11/18 09/11/18 09/11/18 03:54 04:57 05:05 WBC 17.0 H RBC Hgb 11.4 L Hct 33.8 L Plt Count 110 L Lymphocytes % (Manual) Eosinophils # (Manual) POC ABG pH 7.462 H POC ABG pCO2 31.2 L POC ABG pO2 109 H Sodium Potassium Chloride Carbon Dioxide BUN Glucose POC Glucose 112 H TSH 09/11/18 09/11/18 09/11/18 05:05 05:16 06:00 WBC RBC Hgb Hct Plt Count Lymphocytes % (Manual) Eosinophils # (Manual) POC ABG pH POC ABG pCO2 POC ABG pO2 Sodium 134 L Potassium 3.2 L Chloride 97.5 L Carbon Dioxide BUN Glucose 144 H POC Glucose 150 H 178 H TSH 09/11/18 09/11/18 09/11/18 06:54 08:01 09:14 WBC RBC Hgb Hct Plt Count Lymphocytes % (Manual) Eosinophils # (Manual) POC ABG pH POC ABG pCO2 POC ABG pO2 Sodium Potassium Chloride Carbon Dioxide BUN Glucose POC Glucose 146 H 116 H 114 H TSH 09/11/18 09/11/18 09/11/18 12:43 17:09 21:31 WBC RBC Hgb Hct Plt Count Lymphocytes % (Manual) Eosinophils # (Manual) POC ABG pH POC ABG pCO2 POC ABG pO2 Sodium Potassium Chloride Carbon Dioxide BUN Glucose POC Glucose 144 H 125 H 141 H TSH 09/12/18 09/12/18 09/12/18 02:05 04:55 04:55 WBC 11.5 H RBC Hgb 11.3 L Hct 34.0 L Plt Count Lymphocytes % (Manual) 43.0 H Eosinophils # (Manual) 0.5 H POC ABG pH POC ABG pCO2 POC ABG pO2 Sodium 136 L Potassium Chloride Carbon Dioxide BUN 8 L Glucose 122 H POC Glucose 140 H TSH 09/12/18 09/12/18 09/12/18 05:35 10:50 13:15 WBC RBC Hgb Hct Plt Count Lymphocytes % (Manual) Eosinophils # (Manual) POC ABG pH POC ABG pCO2 POC ABG pO2 Sodium Potassium Chloride Carbon Dioxide BUN Glucose POC Glucose 115 H 149 H 133 H TSH 09/12/18 09/12/18 09/13/18 18:05 21:31 02:09 WBC RBC Hgb Hct Plt Count Lymphocytes % (Manual) Eosinophils # (Manual) POC ABG pH POC ABG pCO2 POC ABG pO2 Sodium Potassium Chloride Carbon Dioxide BUN Glucose POC Glucose 132 H 142 H 120 H TSH 09/13/18 09/13/18 09/13/18 04:30 04:30 05:41 WBC 12.3 H RBC 3.35 L Hgb 10.3 L Hct 30.6 L Plt Count Lymphocytes % (Manual) Eosinophils # (Manual) POC ABG pH 7.457 H POC ABG pCO2 POC ABG pO2 113 H Sodium Potassium Chloride Carbon Dioxide BUN Glucose 117 H POC Glucose TSH 09/13/18 09/13/18 09/13/18 11:07 18:16 23:31 WBC RBC Hgb Hct Plt Count Lymphocytes % (Manual) Eosinophils # (Manual) POC ABG pH POC ABG pCO2 POC ABG pO2 Sodium Potassium Chloride Carbon Dioxide BUN Glucose POC Glucose 164 H 125 H 135 H TSH 09/14/18 09/14/18 09/14/18 04:00 05:32 07:14 WBC RBC Hgb Hct Plt Count Lymphocytes % (Manual) Eosinophils # (Manual) POC ABG pH 7.534 H POC ABG pCO2 33.6 L POC ABG pO2 111 H Sodium Potassium 3.5 L Chloride Carbon Dioxide BUN Glucose 116 H POC Glucose 116 H TSH
[2018-09-14] MEDS: FOLVITE PO SCH (09:25)
[2018-09-14] MEDS: PEPCID PO SCH ×2 (09:25→21:27)
[2018-09-14] MEDS: KEPPRA PO SCH ×2 (09:25→21:27)
[2018-09-14] MEDS: VITAMIN B-1 PO SCH (09:25)
[2018-09-14] MEDS: DUONEB *Not for PRN Use IH SCH ×4 (09:51→19:54)
--- NOTE | 2018-09-14 12:12 | Progress Note ---
Assessment and Plan Cultures: Sputum 09/09/2018 MSSA Sputum 09/10/2018 MSSA Blood culture: no growth Assessment: 1) SIRS: present on admission with tachycardia, leukocytosis, noted later low grade fever, etiology unclear. UA negative. CXR x 3 no consolidations. ? early pneumonia +/- seizures. Resolved. 2) Possible MSSA tracheobronchitis v/s colonization: CXR without consolidations, +emphysema changes. Elevated WBC count, possibly reactive from seizures. completed short course of abx. 3) Acute respiratory failure: intubated. 4) Status Epilepticus: improved. 5) Acute encephalopathy: from seizures 6) ?LTBI: apparently, treatment was initiated in 2015 and likely completed, hence INH and B6 were d/tristin. Recommendations: - monitor off abx. Cefazolin was d/tristin yesterday. Alexandra Thompson MD [facility] C: [phone] O: [phone] F: [phone] Subjective Date of service: 09/14/18 Principal diagnosis: acute respiratory failure, seizure, history of dementia, Interval history: No fever. Remains intubated. On CPAP. No reported seizures per RN. Objective - Exam Narrative Exam: Physical Exam: Constitutional: drowsy can be awakened, but doesn't consistently follow commands. intubated Head, Ears, Nose: Normocephalic, atraumatic. External ears, nose normal Eyes: Conjunctivae/corneas clear. No icterus. No ptosis. Neck: Supple, no meningeal signs Oral: intubated Cardiovascular: S1, S2 normal. Respiratory: Good air entry, clear to auscultation bilaterally GI: Soft, non-tender; bowel sounds normal. No peritoneal signs Musculoskeletal: No pedal edema, no cyanosis. Skin: No rash or abscess Hem/Lymphatic: No palpable cervical or supraclavicular nodes. No lymphangitis Psych: no agitation Neurological: drowsy, intubated, on vent - Constitutional Vitals: Vital Signs Temp Pulse Resp BP Pulse Ox 97.5 F L 102 H 16 98/54 91 09/14/18 08:00 09/14/18 11:00 09/14/18 11:00 09/14/18 11:00 09/14/18 11:00 Temperature -Last 24 Hours Temperature 97.5 F Temperature 98.1 F Temperature 98.9 F Temperature 96 F Temperature 97.7 F - Labs CBC & Chem 7: 09/13/18 04:30 09/14/18 07:14 Labs: Abnormal lab results 09/13/18 09/13/18 09/13/18 Range/Units 11:07 18:16 23:31 POC ABG pH (7.35-7.45) POC ABG pCO2 (35-45) POC ABG pO2 (80-105) Potassium (3.6-5.0) mmol/L Glucose (75-100) mg/dL POC Glucose 164 H 125 H 135 H (70-105) 09/14/18 09/14/18 09/14/18 Range/Units 04:00 05:32 07:14 POC ABG pH 7.534 H (7.35-7.45) POC ABG pCO2 33.6 L (35-45) POC ABG pO2 111 H (80-105) Potassium 3.5 L (3.6-5.0) mmol/L Glucose 116 H (75-100) mg/dL POC Glucose 116 H (70-105) - Imaging and cardiology Chest x-ray: report reviewed, image reviewed (stable with no pneumonia.)
[2018-09-14] MEDS ORDERED: K-DUR PO ONE (17:00)
--- NOTE | 2018-09-14 17:08 | Progress Note ---
Subjective Date of service: 09/14/18 Principal diagnosis: acute respiratory failure, seizure, history of dementia, Interval history: Patient seen and examined Chart reviewed All INTERDISCIPLINARY notes reviewed Lab results reviewed Patient is intubated Sedated Tries to Open eyes to verbal stimulus He has wrist restraints Review of systems is unable to perform No family member in the room On examination No apparent distress Vital signs reviewed HEENT Normocephalic pupils are round reactive to light Has a nasogastric feeding tube Lungs diminished breath sounds Heart S1-S2 regular rate and rhythm Abdomen is soft Extremities no leg edema 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, limited exam DVT prophylaxis heparin subcutaneous Assessment and plan Acute respiratory failure Patient is intubated ABG reviewed Pulmonary note reviewed and appreciated Continue management per pulmonary recommendations Wean as tolerated History of seizure disorder and status post status epilepticus Continue Keppra MSSA sputum Off antibiotic ID note reviewed Blood cultures negative Leukocytosis Trending down Off antibiotic Likely reactive secondary to seizures Acute encephalopathy Alcoholic dementia Objective - Constitutional Vitals: Vital Signs - 12hr 09/14/18 09/14/18 09/14/18 05:30 06:00 06:30 Temperature Pulse Rate 107 H 95 H 90 Respiratory 16 18 18 Rate Blood Pressure 149/89 118/72 86/52 O2 Sat by Pulse 100 100 99 Oximetry 09/14/18 09/14/18 09/14/18 07:00 07:30 08:00 Temperature 97.5 F L Pulse Rate 93 H 92 H 100 H Respiratory 19 18 17 Rate Blood Pressure 130/81 85/51 127/73 O2 Sat by Pulse 100 99 99 Oximetry 09/14/18 09/14/18 09/14/18 08:30 09:00 09:31 Temperature Pulse Rate 89 86 93 H Respiratory 18 18 18 Rate Blood Pressure 109/68 91/57 91/57 O2 Sat by Pulse 100 97 100 Oximetry 09/14/18 09/14/18 09/14/18 09:45 10:00 10:30 Temperature Pulse Rate 100 H 95 H 102 H Respiratory 16 18 17 Rate Blood Pressure 123/72 119/66 98/50 O2 Sat by Pulse 100 94 91 Oximetry 09/14/18 09/14/18 09/14/18 11:00 11:30 12:00 Temperature 97.4 F L Pulse Rate 102 H 99 H 96 H Respiratory 16 17 14 Rate Blood Pressure 98/54 106/64 110/69 O2 Sat by Pulse 91 98 99 Oximetry 09/14/18 09/14/18 09/14/18 12:30 13:00 13:20 Temperature Pulse Rate 90 90 100 H Respiratory 17 15 18 Rate Blood Pressure 100/64 106/67 131/79 O2 Sat by Pulse 100 100 100 Oximetry 09/14/18 16:00 Temperature Pulse Rate 100 H Respiratory 14 Rate Blood Pressure 122/77 O2 Sat by Pulse 100 Oximetry - Labs CBC & Chem 7: 09/13/18 04:30 09/14/18 07:14 Labs: Abnormal lab results 09/12/18 09/13/18 09/13/18 Range/Units 11:21 18:16 23:31 POC ABG pH (7.35-7.45) POC ABG pCO2 (35-45) POC ABG pO2 (80-105) Potassium (3.6-5.0) mmol/L Glucose (75-100) mg/dL POC Glucose 125 H 135 H (70-105) Miscellaneous Test Flexitest 1 H 09/14/18 09/14/18 09/14/18 Range/Units 04:00 05:32 07:14 POC ABG pH 7.534 H (7.35-7.45) POC ABG pCO2 33.6 L (35-45) POC ABG pO2 111 H (80-105) Potassium 3.5 L (3.6-5.0) mmol/L Glucose 116 H (75-100) mg/dL POC Glucose 116 H (70-105) Miscellaneous Test 09/14/18 09/14/18 Range/Units 11:40 17:01 POC ABG pH (7.35-7.45) POC ABG pCO2 (35-45) POC ABG pO2 (80-105) Potassium (3.6-5.0) mmol/L Glucose (75-100) mg/dL POC Glucose 165 H 120 H (70-105) Miscellaneous Test
[2018-09-14] MEDS: LOVENOX SUB-Q SCH (21:28)
[2018-09-14] MEDS: REMERON PO SCH (21:28)
[2018-09-15] MEDS: ATIVAN IV PRN (04:07)
--- NOTE | 2018-09-15 04:15 | XRay Report ---
PROCEDURE: XR CHEST 1V AP TECHNIQUE: Chest radiograph single view. HISTORY: follow up respiratory failure COMPARISONS: September 14, 2018 . FINDINGS: Heart: Normal. Mediastinum/Vessels: Normal. Lungs/Pleural space: Normal. Bony thorax: No acute osseous abnormality. Life support devices: NG tube is in the stomach. ET tube is in the mid trachea. There is a left-sided PICC line. The tip is in the superior vena cava.. IMPRESSION: The heart size is normal. The lungs are clear and expanded.. NG tube is in the stomach. ET tube is in the mid trachea. There is a left-sided PICC line. The tip is in the superior vena cava. . This document is electronically signed by Roberto Solo MD., September 15 2018 04:13:47 AM ET
[2018-09-15 05:04] LABS: Hematocrit 32.1 % (35.5-45.6); Hemoglobin 10.9 gm/dl (11.8-15.2); Mean Corpuscular HGB Conc 34 % (32-34); Mean Corpuscular Volume 92 fl (84-94); Platelet Count 204 K/mm3 (140-440); Red Cell Distribution Width 13.6 % (13.2-15.2)
[2018-09-15 05:10] LABS: BUN/Creatinine Ratio 10; Blood Urea Nitrogen 11 mg/dL (9-20); Calcium 8.9 mg/dL (8.4-10.2); Hemolysis Index 1
[2018-09-15] MEDS: DUONEB *Not for PRN Use IH SCH ×4 (08:20→20:22)
[2018-09-15] MEDS ORDERED: POTASSIUM CHLORIDE FEEDTUBE ONE (09:00)
[2018-09-15] MEDS: KEPPRA PO SCH ×2 (09:28→23:44)
[2018-09-15] MEDS: VITAMIN B-1 PO SCH (09:28)
[2018-09-15] MEDS: PEPCID PO SCH ×2 (09:28→23:44)
[2018-09-15] MEDS: FOLVITE PO SCH (09:28)
--- NOTE | 2018-09-15 10:44 | Progress Note ---
Assessment and Plan Acute respiratory failure, mechanical ventilation support Seizure episodes. No events this morning. Sedation being tapered down Agitation. prn Ativan Past medical history dementia Past medical history of conversion disorder.Per RN report History of alcohol abuse. Reportedly no intake prior to admission Emphysema LTBI?. Apparently on INH/thiamine treatment. Reportedly, patient on treatment at least for the past 1-2 years Recommendations SBT , wean off and extubate as tyolerated Extubation precautions Continue Seizure TX Check EEG results. Still n/a CBC/WBC f/u Advance nutritional support later as tolerated Discussed with staff in detail. All questions answered. Critical care time was 31 minutes of [id number] evaluation and coordination of care Subjective Date of service: 09/15/18 Principal diagnosis: acute respiratory failure, seizure, history of dementia, Interval history: Arousable and intubated. No obvious seizures. Family at the bedside Objective Vital Signs - 12hr 09/14/18 09/14/18 09/14/18 23:00 23:25 23:30 Temperature Pulse Rate 90 103 H 101 H Pulse Rate [ Anterior Bilateral Throughout] Pulse Rate [ From Monitor] Respiratory 18 19 Rate Respiratory Rate [Anterior Bilateral Throughout] Blood Pressure 113/73 143/84 149/92 O2 Sat by Pulse 100 100 99 Oximetry 09/14/18 09/15/18 09/15/18 23:39 00:00 00:30 Temperature 97.1 F L Pulse Rate 91 H 90 Pulse Rate [ Anterior Bilateral Throughout] Pulse Rate [ 90 From Monitor] Respiratory 18 18 Rate Respiratory Rate [Anterior Bilateral Throughout] Blood Pressure 128/76 116/69 O2 Sat by Pulse 100 100 Oximetry 09/15/18 09/15/18 09/15/18 01:00 01:30 02:00 Temperature Pulse Rate 101 H 101 H 93 H Pulse Rate [ Anterior Bilateral Throughout] Pulse Rate [ From Monitor] Respiratory 10 L 16 20 Rate Respiratory Rate [Anterior Bilateral Throughout] Blood Pressure 140/89 137/84 130/83 O2 Sat by Pulse 100 100 100 Oximetry 09/15/18 09/15/18 09/15/18 02:30 03:00 03:30 Temperature Pulse Rate 104 H 102 H 101 H Pulse Rate [ Anterior Bilateral Throughout] Pulse Rate [ From Monitor] Respiratory 19 22 22 Rate Respiratory Rate [Anterior Bilateral Throughout] Blood Pressure 148/84 129/79 147/79 O2 Sat by Pulse 99 99 99 Oximetry 09/15/18 09/15/18 09/15/18 04:00 04:30 05:01 Temperature 98.0 F Pulse Rate 108 H 100 H 107 H Pulse Rate [ Anterior Bilateral Throughout] Pulse Rate [ 102 H From Monitor] Respiratory 20 21 21 Rate Respiratory Rate [Anterior Bilateral Throughout] Blood Pressure 141/90 127/81 134/81 O2 Sat by Pulse 99 99 99 Oximetry 09/15/18 09/15/18 09/15/18 05:30 05:35 06:00 Temperature Pulse Rate 106 H 106 H 107 H Pulse Rate [ Anterior Bilateral Throughout] Pulse Rate [ From Monitor] Respiratory 17 27 H 20 Rate Respiratory Rate [Anterior Bilateral Throughout] Blood Pressure 138/88 138/88 137/86 O2 Sat by Pulse 99 99 99 Oximetry 09/15/18 09/15/18 09/15/18 06:14 06:30 07:00 Temperature 97.6 F Pulse Rate 103 H 97 H Pulse Rate [ Anterior Bilateral Throughout] Pulse Rate [ From Monitor] Respiratory 25 H 23 Rate Respiratory Rate [Anterior Bilateral Throughout] Blood Pressure 142/82 141/85 O2 Sat by Pulse 99 98 Oximetry 09/15/18 09/15/18 09/15/18 07:30 08:00 08:15 Temperature 97.7 F Pulse Rate 104 H 113 H 108 H Pulse Rate [ 103 H Anterior Bilateral Throughout] Pulse Rate [ 108 H From Monitor] Respiratory 24 15 23 Rate Respiratory 21 Rate [Anterior Bilateral Throughout] Blood Pressure 148/82 142/79 157/76 O2 Sat by Pulse 99 99 98 Oximetry 09/15/18 09/15/18 09/15/18 08:30 08:39 09:00 Temperature Pulse Rate 109 H 114 H Pulse Rate [ 115 H Anterior Bilateral Throughout] Pulse Rate [ From Monitor] Respiratory 21 22 Rate Respiratory 21 Rate [Anterior Bilateral Throughout] Blood Pressure 154/91 149/82 O2 Sat by Pulse 96 97 Oximetry 09/15/18 09/15/18 09:30 10:36 Temperature Pulse Rate 107 H 109 H Pulse Rate [ Anterior Bilateral Throughout] Pulse Rate [ From Monitor] Respiratory 22 22 Rate Respiratory Rate [Anterior Bilateral Throughout] Blood Pressure 119/81 118/85 O2 Sat by Pulse 98 100 Oximetry Constitutional: asleep Eyes: non-icteric ENT: other (intubated) Neck: supple Effort: normal Ascultation: Bilateral: clear Percussion: Bilateral: not dull Cardiovascular: regular rate and rhythm (sinus tachycardia) Gastrointestinal: soft, non-tender Extremities: no cyanosis, no edema, pink and warm, pulses normal Neurologic: other (RASS score 0 to -1) CBC and BMP: 09/15/18 04:35 09/16/18 07:40 ABG, PT/INR, D-dimer: ABG POC ABG pH 7.534 (7.35-7.45) H 09/14/18 04:00 POC ABG pCO2 33.6 (35-45) L 09/14/18 04:00 POC ABG pO2 111 (80-105) H 09/14/18 04:00 POC ABG HCO3 28.3 (22-26 mml/L) 09/14/18 04:00 POC ABG Total CO2 29 (23-27mmol/L) 09/14/18 04:00 POC ABG O2 Sat 99 09/14/18 04:00 Abnormal lab findings: Abnormal Labs 09/08/18 09/08/18 09/08/18 13:04 13:04 13:04 WBC 13.7 H RBC Hgb Hct Plt Count Lymphocytes % (Manual) 39.0 H Eosinophils # (Manual) POC ABG pH POC ABG pCO2 POC ABG pO2 Sodium Potassium Chloride Carbon Dioxide 15 L BUN Glucose POC Glucose TSH 12.130 H Miscellaneous Test 09/08/18 09/10/18 09/10/18 17:18 00:43 04:17 WBC RBC Hgb Hct Plt Count Lymphocytes % (Manual) Eosinophils # (Manual) POC ABG pH 7.477 H 7.306 L POC ABG pCO2 31.5 L 49.4 H 33.6 L POC ABG pO2 136 H 112 H 124 H Sodium Potassium Chloride Carbon Dioxide BUN Glucose POC Glucose TSH Miscellaneous Test 09/10/18 09/10/18 09/10/18 10:34 10:34 11:41 WBC 21.2 H RBC Hgb Hct Plt Count 125 L Lymphocytes % (Manual) Eosinophils # (Manual) POC ABG pH POC ABG pCO2 POC ABG pO2 Sodium 136 L Potassium Chloride Carbon Dioxide 21 L BUN Glucose 109 H POC Glucose 107 H TSH Miscellaneous Test 09/10/18 09/10/18 09/10/18 19:08 19:59 20:57 WBC RBC Hgb Hct Plt Count Lymphocytes % (Manual) Eosinophils # (Manual) POC ABG pH POC ABG pCO2 POC ABG pO2 Sodium Potassium Chloride Carbon Dioxide BUN Glucose POC Glucose 121 H 122 H 128 H TSH Miscellaneous Test 09/10/18 09/10/18 09/11/18 22:01 23:05 00:01 WBC RBC Hgb Hct Plt Count Lymphocytes % (Manual) Eosinophils # (Manual) POC ABG pH POC ABG pCO2 POC ABG pO2 Sodium Potassium Chloride Carbon Dioxide BUN Glucose POC Glucose 126 H 109 H 136 H TSH Miscellaneous Test 09/11/18 09/11/18 09/11/18 01:04 02:00 02:56 WBC RBC Hgb Hct Plt Count Lymphocytes % (Manual) Eosinophils # (Manual) POC ABG pH POC ABG pCO2 POC ABG pO2 Sodium Potassium Chloride Carbon Dioxide BUN Glucose POC Glucose 128 H 127 H 132 H TSH Miscellaneous Test 09/11/18 09/11/18 09/11/18 03:54 04:57 05:05 WBC 17.0 H RBC Hgb 11.4 L Hct 33.8 L Plt Count 110 L Lymphocytes % (Manual) Eosinophils # (Manual) POC ABG pH 7.462 H POC ABG pCO2 31.2 L POC ABG pO2 109 H Sodium Potassium Chloride Carbon Dioxide BUN Glucose POC Glucose 112 H TSH Miscellaneous Test 09/11/18 09/11/18 09/11/18 05:05 05:16 06:00 WBC RBC Hgb Hct Plt Count Lymphocytes % (Manual) Eosinophils # (Manual) POC ABG pH POC ABG pCO2 POC ABG pO2 Sodium 134 L Potassium 3.2 L Chloride 97.5 L Carbon Dioxide BUN Glucose 144 H POC Glucose 150 H 178 H TSH Miscellaneous Test 09/11/18 09/11/18 09/11/18 06:54 08:01 09:14 WBC RBC Hgb Hct Plt Count Lymphocytes % (Manual) Eosinophils # (Manual) POC ABG pH POC ABG pCO2 POC ABG pO2 Sodium Potassium Chloride Carbon Dioxide BUN Glucose POC Glucose 146 H 116 H 114 H TSH Miscellaneous Test 09/11/18 09/11/18 09/11/18 12:43 17:09 21:31 WBC RBC Hgb Hct Plt Count Lymphocytes % (Manual) Eosinophils # (Manual) POC ABG pH POC ABG pCO2 POC ABG pO2 Sodium Potassium Chloride Carbon Dioxide BUN Glucose POC Glucose 144 H 125 H 141 H TSH Miscellaneous Test 09/12/18 09/12/18 09/12/18 02:05 04:55 04:55 WBC 11.5 H RBC Hgb 11.3 L Hct 34.0 L Plt Count Lymphocytes % (Manual) 43.0 H Eosinophils # (Manual) 0.5 H POC ABG pH POC ABG pCO2 POC ABG pO2 Sodium 136 L Potassium Chloride Carbon Dioxide BUN 8 L Glucose 122 H POC Glucose 140 H TSH Miscellaneous Test 09/12/18 09/12/18 09/12/18 05:35 10:50 11:21 WBC RBC Hgb Hct Plt Count Lymphocytes % (Manual) Eosinophils # (Manual) POC ABG pH POC ABG pCO2 POC ABG pO2 Sodium Potassium Chloride Carbon Dioxide BUN Glucose POC Glucose 115 H 149 H TSH Miscellaneous Test Flexitest 1 H 09/12/18 09/12/18 09/12/18 13:15 18:05 21:31 WBC RBC Hgb Hct Plt Count Lymphocytes % (Manual) Eosinophils # (Manual) POC ABG pH POC ABG pCO2 POC ABG pO2 Sodium Potassium Chloride Carbon Dioxide BUN Glucose POC Glucose 133 H 132 H 142 H TSH Miscellaneous Test 09/13/18 09/13/18 09/13/18 02:09 04:30 04:30 WBC 12.3 H RBC 3.35 L Hgb 10.3 L Hct 30.6 L Plt Count Lymphocytes % (Manual) Eosinophils # (Manual) POC ABG pH POC ABG pCO2 POC ABG pO2 Sodium Potassium Chloride Carbon Dioxide BUN Glucose 117 H POC Glucose 120 H TSH Miscellaneous Test 09/13/18 09/13/18 09/13/18 05:41 11:07 18:16 WBC RBC Hgb Hct Plt Count Lymphocytes % (Manual) Eosinophils # (Manual) POC ABG pH 7.457 H POC ABG pCO2 POC ABG pO2 113 H Sodium Potassium Chloride Carbon Dioxide BUN Glucose POC Glucose 164 H 125 H TSH Miscellaneous Test 09/13/18 09/14/18 09/14/18 23:31 04:00 05:32 WBC RBC Hgb Hct Plt Count Lymphocytes % (Manual) Eosinophils # (Manual) POC ABG pH 7.534 H POC ABG pCO2 33.6 L POC ABG pO2 111 H Sodium Potassium Chloride Carbon Dioxide BUN Glucose POC Glucose 135 H 116 H TSH Miscellaneous Test 09/14/18 09/14/18 09/14/18 07:14 11:40 17:01 WBC RBC Hgb Hct Plt Count Lymphocytes % (Manual) Eosinophils # (Manual) POC ABG pH POC ABG pCO2 POC ABG pO2 Sodium Potassium 3.5 L Chloride Carbon Dioxide BUN Glucose 116 H POC Glucose 165 H 120 H TSH Miscellaneous Test 09/14/18 09/15/18 09/15/18 23:13 04:35 04:35 WBC 14.8 H RBC 3.50 L Hgb 10.9 L Hct 32.1 L Plt Count Lymphocytes % (Manual) Eosinophils # (Manual) POC ABG pH POC ABG pCO2 POC ABG pO2 Sodium Potassium 3.5 L Chloride Carbon Dioxide BUN Glucose 111 H POC Glucose 118 H TSH Miscellaneous Test 09/15/18 06:06 WBC RBC Hgb Hct Plt Count Lymphocytes % (Manual) Eosinophils # (Manual) POC ABG pH POC ABG pCO2 POC ABG pO2 Sodium Potassium Chloride Carbon Dioxide BUN Glucose POC Glucose 121 H TSH Miscellaneous Test
--- NOTE | 2018-09-15 11:04 | Progress Note ---
Assessment and Plan Cultures: Sputum 09/09/2018 MSSA Sputum 09/10/2018 MSSA Blood culture: no growth Assessment: 1) SIRS: present on admission with tachycardia, leukocytosis, noted later low grade fever, etiology unclear. UA negative. CXR x 3 no consolidations. ? early pneumonia +/- seizures. Resolved. 2) Possible MSSA tracheobronchitis v/s colonization: CXR without consolidations, +emphysema changes. Elevated WBC count, possibly reactive from seizures. completed short course of abx. 3) Acute respiratory failure: intubated. 4) Status Epilepticus: improved. 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 Recommendations: - monitor off abx. - I am signing off Naomi Ramos MD Infectious Diseases Environmental Solutions Engineer [facility] ([facility]) M [phone] O [phone] Subjective Date of service: 09/15/18 Principal diagnosis: acute respiratory failure, seizure, history of dementia, Interval history: patient is alert, no fever. Objective - Exam Narrative Exam: General appearance: sedated on the vent fiO2 28% p 6 Eyes: anicteric sclerae, moist conjunctivae; no lid-lag; PERRLA HENT: Atraumatic; oropharynx+ETT +NGT Neck: Trachea midline; supple, no thyromegaly or lymphadenopathy Lungs: CTA CV: rrr Abdomen: Soft, non-tender; no masses or hepatosplenomegaly Extremities: extensive right lateral forefoot necrotic changes and devitalized tissue Skin: Normal temperature, turgor and texture; no rash, ulcers or subcutaneous nodules Psych: no agitated. Neuro: alert - Constitutional Vitals: Vital Signs Temp Pulse Resp BP Pulse Ox 97.7 F 109 H 22 118/85 100 09/15/18 08:00 09/15/18 10:36 09/15/18 10:36 09/15/18 10:36 09/15/18 10:36 Temperature -Last 24 Hours Temperature 97.7 F Temperature 97.6 F Temperature 98.0 F Temperature 97.1 F Temperature 97.8 F Temperature 97.5 F Temperature 97.4 F - Labs CBC & Chem 7: 09/15/18 04:35 09/15/18 04:35 Labs: Abnormal lab results 09/12/18 09/14/18 09/14/18 Range/Units 11:21 11:40 17:01 WBC (4.5-11.0) K/mm3 RBC (3.65-5.03) M/mm3 Hgb (11.8-15.2) gm/dl Hct (35.5-45.6) % POC ABG pCO2 (35-45) Potassium (3.6-5.0) mmol/L Glucose (75-100) mg/dL POC Glucose 165 H 120 H (70-105) Miscellaneous Test Flexitest 1 H 09/14/18 09/15/18 09/15/18 Range/Units 23:13 04:35 04:35 WBC 14.8 H (4.5-11.0) K/mm3 RBC 3.50 L (3.65-5.03) M/mm3 Hgb 10.9 L (11.8-15.2) gm/dl Hct 32.1 L (35.5-45.6) % POC ABG pCO2 (35-45) Potassium 3.5 L (3.6-5.0) mmol/L Glucose 111 H (75-100) mg/dL POC Glucose 118 H (70-105) Miscellaneous Test 09/15/18 09/15/18 Range/Units 06:06 10:45 WBC (4.5-11.0) K/mm3 RBC (3.65-5.03) M/mm3 Hgb (11.8-15.2) gm/dl Hct (35.5-45.6) % POC ABG pCO2 48.8 H (35-45) Potassium (3.6-5.0) mmol/L Glucose (75-100) mg/dL POC Glucose 121 H (70-105) Miscellaneous Test
[2018-09-15] MEDS: REMERON PO SCH (23:44)
[2018-09-15] MEDS: LOVENOX SUB-Q SCH (23:45)
[2018-09-16] MEDS: ATIVAN IV PRN ×2 (02:59→16:01)
--- NOTE | 2018-09-16 06:43 | Progress Note ---
Assessment and Plan Assessment and plan Acute respiratory failure Patient extubated today ABG reviewed Pulmonary note reviewed and appreciated Continue management per pulmonary recommendations History of seizure disorder and status post status epilepticus Continue Keppra MSSA sputum Off antibiotic ID note reviewed Blood cultures negative Leukocytosis Trending down Off antibiotic Likely reactive secondary to seizures Acute encephalopathy Improving Alcoholic dementia Transfer to floor tomorrow. Subjective Date of service: 09/15/18 Principal diagnosis: acute respiratory failure, seizure, history of dementia, Interval history: Post extubation doing well today. Intubated sec to status epilepticus Objective - Constitutional Vitals: Vital Signs - 12hr 09/15/18 09/15/18 09/15/18 19:00 19:01 20:00 Temperature 98.2 F Pulse Rate 97 H 99 H 96 H Pulse Rate [ Anterior Bilateral Throughout] Respiratory 16 16 19 Rate Respiratory Rate [Anterior Bilateral Throughout] Blood Pressure 117/70 117/70 120/72 O2 Sat by Pulse 100 100 Oximetry 09/15/18 09/15/18 09/15/18 20:22 20:24 20:35 Temperature Pulse Rate Pulse Rate [ 96 H 96 H Anterior Bilateral Throughout] Respiratory Rate Respiratory 16 16 Rate [Anterior Bilateral Throughout] Blood Pressure O2 Sat by Pulse 99 Oximetry 09/15/18 09/15/18 09/15/18 21:00 22:00 23:00 Temperature Pulse Rate 101 H 97 H 96 H Pulse Rate [ Anterior Bilateral Throughout] Respiratory 16 15 16 Rate Respiratory Rate [Anterior Bilateral Throughout] Blood Pressure 130/71 112/73 125/72 O2 Sat by Pulse 100 99 99 Oximetry 09/16/18 09/16/18 09/16/18 00:00 01:00 02:00 Temperature 98.2 F Pulse Rate 94 H 93 H 99 H Pulse Rate [ Anterior Bilateral Throughout] Respiratory 14 12 16 Rate Respiratory Rate [Anterior Bilateral Throughout] Blood Pressure 137/77 124/76 124/78 O2 Sat by Pulse 98 100 97 Oximetry 09/16/18 09/16/18 09/16/18 03:00 04:00 05:00 Temperature 98.1 F Pulse Rate 98 H 94 H 98 H Pulse Rate [ Anterior Bilateral Throughout] Respiratory 23 17 15 Rate Respiratory Rate [Anterior Bilateral Throughout] Blood Pressure 136/69 132/83 131/84 O2 Sat by Pulse 97 99 100 Oximetry 09/16/18 06:00 Temperature Pulse Rate 87 Pulse Rate [ Anterior Bilateral Throughout] Respiratory 14 Rate Respiratory Rate [Anterior Bilateral Throughout] Blood Pressure 130/78 O2 Sat by Pulse 100 Oximetry General appearance: Present: no acute distress, well-nourished - EENT Eyes: PERRL, EOM intact ENT: hearing intact, clear oral mucosa Ears: bilateral: normal - Neck Neck: supple, normal ROM - Respiratory Respiratory effort: normal Respiratory: bilateral: CTA - Breasts Breasts: normal - Cardiovascular Heart rate: 78 Rhythm: regular Heart Sounds: Present: S1 & S2. Absent: gallop, rub Extremities: no ischemia, pulses intact, No edema, normal color, Full ROM - Gastrointestinal General gastrointestinal: Present: soft, non-tender, non-distended, normal bowel sounds - Genitourinary Male genitourinary: normal - Integumentary Integumentary: clear, warm, dry - Musculoskeletal Musculoskeletal: 1, strength equal bilaterally - Neurologic Neurologic: moves all extremities - Psychiatric Psychiatric: memory intact, appropriate mood/affect, intact judgment & insight - Allied health notes Allied health notes reviewed: nursing, case management - Labs CBC & Chem 7: 09/15/18 04:35 09/15/18 04:35 Labs: Abnormal lab results 09/15/18 09/15/18 09/15/18 Range/Units 10:45 12:08 17:51 POC ABG pCO2 48.8 H (35-45) POC Glucose 114 H 114 H (70-105) 09/16/18 Range/Units 05:37 POC ABG pCO2 (35-45) POC Glucose 114 H (70-105)
[2018-09-16] MEDS: DUONEB *Not for PRN Use IH SCH ×4 (07:57→21:12)
[2018-09-16 09:48] LABS: Alanine Aminotransferase 30 units/L (7-56); Albumin 2.8 g/dL (3.9-5); BUN/Creatinine Ratio 11; Blood Urea Nitrogen 12 mg/dL (9-20); Calcium 9.3 mg/dL (8.4-10.2); Hemolysis Index 0
[2018-09-16] MEDS: KEPPRA PO SCH ×2 (10:00→22:15)
[2018-09-16] MEDS: PEPCID PO SCH ×2 (10:00→22:14)
[2018-09-16] MEDS: VITAMIN B-1 PO SCH (10:00)
[2018-09-16] MEDS: FOLVITE PO SCH (10:00)
--- NOTE | 2018-09-16 10:44 | Progress Note ---
Assessment and Plan Acute respiratory failure, mechanical ventilation support. Successfully extubated. Upper to be stable at this point no chest congestion, breathing comfortably on nasal cannula Seizure episodes. No near events. Off INH Agitation. Controlled Past medical history dementia Past medical history of conversion disorder.Per RN report History of alcohol abuse. Reportedly no intake prior to admission Emphysema. Controlled. Elevated bicarbonate level noted LTBI?. Apparently on INH/thiamine treatment. Reportedly, patient on treatment at least for the past 1-2 years Recommendations Continue Seizure TX Check EEG results. Still n/a We'll follow respiratory status clinically for now. CBC/WBC f/u Advance nutritional support later as tolerated Discussed with patient staff in detail. All questions answered. She continues to improve and no further seizure events, he might be amenable for transfer later on. Critical care time was 31 minutes of [id number] evaluation and coordination of care Subjective Date of service: 09/16/18 Principal diagnosis: acute respiratory failure, seizure, history of dementia, Interval history: Extubated. Reports occasional cough and some sore troponin and no additional complaints Objective Vital Signs - 12hr 09/15/18 09/16/18 09/16/18 23:00 00:00 01:00 Temperature 98.2 F Pulse Rate 96 H 94 H 93 H Pulse Rate [ Anterior Bilateral Throughout] Pulse Rate [ From Monitor] Respiratory 16 14 12 Rate Respiratory Rate [Anterior Bilateral Throughout] Blood Pressure 125/72 137/77 124/76 O2 Sat by Pulse 99 98 100 Oximetry 09/16/18 09/16/18 09/16/18 02:00 03:00 04:00 Temperature 98.1 F Pulse Rate 99 H 98 H 94 H Pulse Rate [ Anterior Bilateral Throughout] Pulse Rate [ From Monitor] Respiratory 16 23 17 Rate Respiratory Rate [Anterior Bilateral Throughout] Blood Pressure 124/78 136/69 132/83 O2 Sat by Pulse 97 97 99 Oximetry 09/16/18 09/16/18 09/16/18 05:00 06:00 07:00 Temperature Pulse Rate 98 H 87 86 Pulse Rate [ Anterior Bilateral Throughout] Pulse Rate [ From Monitor] Respiratory 15 14 15 Rate Respiratory Rate [Anterior Bilateral Throughout] Blood Pressure 131/84 130/78 123/82 O2 Sat by Pulse 100 100 97 Oximetry 09/16/18 09/16/18 09/16/18 07:54 07:59 08:00 Temperature 97.2 F L Pulse Rate 83 Pulse Rate [ 83 Anterior Bilateral Throughout] Pulse Rate [ 92 H From Monitor] Respiratory 17 Rate Respiratory 14 Rate [Anterior Bilateral Throughout] Blood Pressure 127/81 O2 Sat by Pulse 95 98 Oximetry 09/16/18 09/16/18 09/16/18 08:03 09:00 10:00 Temperature Pulse Rate 82 68 Pulse Rate [ 94 H Anterior Bilateral Throughout] Pulse Rate [ From Monitor] Respiratory 15 14 Rate Respiratory 15 Rate [Anterior Bilateral Throughout] Blood Pressure 120/77 115/76 O2 Sat by Pulse 99 100 Oximetry Constitutional: asleep Eyes: non-icteric Neck: supple Effort: normal Ascultation: Bilateral: clear Percussion: Bilateral: not dull Cardiovascular: regular rate and rhythm Gastrointestinal: soft, non-tender Extremities: no cyanosis, no edema, pink and warm, pulses normal Neurologic: normal mental status, non-focal exam Psychiatric: mood appropriate, affect normal CBC and BMP: 09/15/18 04:35 09/16/18 07:40 ABG, PT/INR, D-dimer: ABG POC ABG pH 7.400 (7.35-7.45) 09/15/18 10:45 POC ABG pCO2 48.8 (35-45) H 09/15/18 10:45 POC ABG pO2 95 (80-105) 09/15/18 10:45 POC ABG HCO3 30.2 (22-26 mml/L) 09/15/18 10:45 POC ABG Total CO2 32 (23-27mmol/L) 09/15/18 10:45 POC ABG O2 Sat 97 09/15/18 10:45 Abnormal lab findings: Abnormal Labs 09/08/18 09/08/18 09/08/18 13:04 13:04 13:04 WBC 13.7 H RBC Hgb Hct Plt Count Lymphocytes % (Manual) 39.0 H Eosinophils # (Manual) POC ABG pH POC ABG pCO2 POC ABG pO2 Sodium Potassium Chloride Carbon Dioxide 15 L BUN Glucose POC Glucose AST Total Protein Albumin TSH 12.130 H Miscellaneous Test 09/08/18 09/10/18 09/10/18 17:18 00:43 04:17 WBC RBC Hgb Hct Plt Count Lymphocytes % (Manual) Eosinophils # (Manual) POC ABG pH 7.477 H 7.306 L POC ABG pCO2 31.5 L 49.4 H 33.6 L POC ABG pO2 136 H 112 H 124 H Sodium Potassium Chloride Carbon Dioxide BUN Glucose POC Glucose AST Total Protein Albumin TSH Miscellaneous Test 09/10/18 09/10/18 09/10/18 10:34 10:34 11:41 WBC 21.2 H RBC Hgb Hct Plt Count 125 L Lymphocytes % (Manual) Eosinophils # (Manual) POC ABG pH POC ABG pCO2 POC ABG pO2 Sodium 136 L Potassium Chloride Carbon Dioxide 21 L BUN Glucose 109 H POC Glucose 107 H AST Total Protein Albumin TSH Miscellaneous Test 09/10/18 09/10/18 09/10/18 19:08 19:59 20:57 WBC RBC Hgb Hct Plt Count Lymphocytes % (Manual) Eosinophils # (Manual) POC ABG pH POC ABG pCO2 POC ABG pO2 Sodium Potassium Chloride Carbon Dioxide BUN Glucose POC Glucose 121 H 122 H 128 H AST Total Protein Albumin TSH Miscellaneous Test 09/10/18 09/10/18 09/11/18 22:01 23:05 00:01 WBC RBC Hgb Hct Plt Count Lymphocytes % (Manual) Eosinophils # (Manual) POC ABG pH POC ABG pCO2 POC ABG pO2 Sodium Potassium Chloride Carbon Dioxide BUN Glucose POC Glucose 126 H 109 H 136 H AST Total Protein Albumin TSH Miscellaneous Test 09/11/18 09/11/18 09/11/18 01:04 02:00 02:56 WBC RBC Hgb Hct Plt Count Lymphocytes % (Manual) Eosinophils # (Manual) POC ABG pH POC ABG pCO2 POC ABG pO2 Sodium Potassium Chloride Carbon Dioxide BUN Glucose POC Glucose 128 H 127 H 132 H AST Total Protein Albumin TSH Miscellaneous Test 09/11/18 09/11/18 09/11/18 03:54 04:57 05:05 WBC 17.0 H RBC Hgb 11.4 L Hct 33.8 L Plt Count 110 L Lymphocytes % (Manual) Eosinophils # (Manual) POC ABG pH 7.462 H POC ABG pCO2 31.2 L POC ABG pO2 109 H Sodium Potassium Chloride Carbon Dioxide BUN Glucose POC Glucose 112 H AST Total Protein Albumin TSH Miscellaneous Test 09/11/18 09/11/18 09/11/18 05:05 05:16 06:00 WBC RBC Hgb Hct Plt Count Lymphocytes % (Manual) Eosinophils # (Manual) POC ABG pH POC ABG pCO2 POC ABG pO2 Sodium 134 L Potassium 3.2 L Chloride 97.5 L Carbon Dioxide BUN Glucose 144 H POC Glucose 150 H 178 H AST Total Protein Albumin TSH Miscellaneous Test 09/11/18 09/11/18 09/11/18 06:54 08:01 09:14 WBC RBC Hgb Hct Plt Count Lymphocytes % (Manual) Eosinophils # (Manual) POC ABG pH POC ABG pCO2 POC ABG pO2 Sodium Potassium Chloride Carbon Dioxide BUN Glucose POC Glucose 146 H 116 H 114 H AST Total Protein Albumin TSH Miscellaneous Test 09/11/18 09/11/18 09/11/18 12:43 17:09 21:31 WBC RBC Hgb Hct Plt Count Lymphocytes % (Manual) Eosinophils # (Manual) POC ABG pH POC ABG pCO2 POC ABG pO2 Sodium Potassium Chloride Carbon Dioxide BUN Glucose POC Glucose 144 H 125 H 141 H AST Total Protein Albumin TSH Miscellaneous Test 09/12/18 09/12/18 09/12/18 02:05 04:55 04:55 WBC 11.5 H RBC Hgb 11.3 L Hct 34.0 L Plt Count Lymphocytes % (Manual) 43.0 H Eosinophils # (Manual) 0.5 H POC ABG pH POC ABG pCO2 POC ABG pO2 Sodium 136 L Potassium Chloride Carbon Dioxide BUN 8 L Glucose 122 H POC Glucose 140 H AST Total Protein Albumin TSH Miscellaneous Test 09/12/18 09/12/18 09/12/18 05:35 10:50 11:21 WBC RBC Hgb Hct Plt Count Lymphocytes % (Manual) Eosinophils # (Manual) POC ABG pH POC ABG pCO2 POC ABG pO2 Sodium Potassium Chloride Carbon Dioxide BUN Glucose POC Glucose 115 H 149 H AST Total Protein Albumin TSH Miscellaneous Test Flexitest 1 H 09/12/18 09/12/18 09/12/18 13:15 18:05 21:31 WBC RBC Hgb Hct Plt Count Lymphocytes % (Manual) Eosinophils # (Manual) POC ABG pH POC ABG pCO2 POC ABG pO2 Sodium Potassium Chloride Carbon Dioxide BUN Glucose POC Glucose 133 H 132 H 142 H AST Total Protein Albumin TSH Miscellaneous Test 09/13/18 09/13/18 09/13/18 02:09 04:30 04:30 WBC 12.3 H RBC 3.35 L Hgb 10.3 L Hct 30.6 L Plt Count Lymphocytes % (Manual) Eosinophils # (Manual) POC ABG pH POC ABG pCO2 POC ABG pO2 Sodium Potassium Chloride Carbon Dioxide BUN Glucose 117 H POC Glucose 120 H AST Total Protein Albumin TSH Miscellaneous Test 09/13/18 09/13/18 09/13/18 05:41 11:07 18:16 WBC RBC Hgb Hct Plt Count Lymphocytes % (Manual) Eosinophils # (Manual) POC ABG pH 7.457 H POC ABG pCO2 POC ABG pO2 113 H Sodium Potassium Chloride Carbon Dioxide BUN Glucose POC Glucose 164 H 125 H AST Total Protein Albumin TSH Miscellaneous Test 09/13/18 09/14/18 09/14/18 23:31 04:00 05:32 WBC RBC Hgb Hct Plt Count Lymphocytes % (Manual) Eosinophils # (Manual) POC ABG pH 7.534 H POC ABG pCO2 33.6 L POC ABG pO2 111 H Sodium Potassium Chloride Carbon Dioxide BUN Glucose POC Glucose 135 H 116 H AST Total Protein Albumin TSH Miscellaneous Test 09/14/18 09/14/18 09/14/18 07:14 11:40 17:01 WBC RBC Hgb Hct Plt Count Lymphocytes % (Manual) Eosinophils # (Manual) POC ABG pH POC ABG pCO2 POC ABG pO2 Sodium Potassium 3.5 L Chloride Carbon Dioxide BUN Glucose 116 H POC Glucose 165 H 120 H AST Total Protein Albumin TSH Miscellaneous Test 09/14/18 09/15/18 09/15/18 23:13 04:35 04:35 WBC 14.8 H RBC 3.50 L Hgb 10.9 L Hct 32.1 L Plt Count Lymphocytes % (Manual) Eosinophils # (Manual) POC ABG pH POC ABG pCO2 POC ABG pO2 Sodium Potassium 3.5 L Chloride Carbon Dioxide BUN Glucose 111 H POC Glucose 118 H AST Total Protein Albumin TSH Miscellaneous Test 09/15/18 09/15/18 09/15/18 06:06 10:45 12:08 WBC RBC Hgb Hct Plt Count Lymphocytes % (Manual) Eosinophils # (Manual) POC ABG pH POC ABG pCO2 48.8 H POC ABG pO2 Sodium Potassium Chloride Carbon Dioxide BUN Glucose POC Glucose 121 H 114 H AST Total Protein Albumin TSH Miscellaneous Test 09/15/18 09/16/18 09/16/18 17:51 05:37 07:40 WBC RBC Hgb Hct Plt Count Lymphocytes % (Manual) Eosinophils # (Manual) POC ABG pH POC ABG pCO2 POC ABG pO2 Sodium 146 H Potassium Chloride Carbon Dioxide 33 H BUN Glucose POC Glucose 114 H 114 H AST 46 H Total Protein 5.9 L Albumin 2.8 L TSH Miscellaneous Test
--- NOTE | 2018-09-16 13:01 | Progress Note ---
Assessment and Plan /Acute respiratory failure Likely from status epilepticus Patient extubated 09/15 ABG reviewed Pulmonary note reviewed and appreciated Continue management per pulmonary recommendations Nebulizer and supplemental O2 as needed /status post status epilepticus Continue Tho, neurology consulted, EEG ordered /Possible MSSA tracheobronchitis v/s colonization: CXR without consolidations Off antibiotic ID note reviewed Blood cultures negative /SIRS, Likely reactive secondary to seizures WBC count Trending down, no solid infectious etiology Off antibiotic /Acute on chronic encephalopathy - Still appears confused, - Likely from status epilepticus and underlying alcoholic dementia /Alcoholic dementia - Supportive care /Status post fall with head trauma - Due to seizure, supportive care / Hypokalemia, repleted /Urinary Retention, Prasad in place, which was removed, then re-inserted on 09/10/18 (i believe) for urinary retention /DVT prophylaxis, Lovenox Brief History; Patient is a 67 yo man from [facility] with a history of Advance Dementia, COPD, Anxiety disorder, Seizure disorder due to prior ETOH abuse, gout and CKD 3 who presented to [facility] ED after seizure and fall resulting in patient hitting his head on the floor causing laceration followed by agitation. There is report of him being non-compliant with meds at the DC. He was combative en route to hospital and EMS gave him Versed. He was sedaged and unresponsive with pulse ox of only 85% on Nonrebreather 100% O2 mask. He was subsequently intubated by Dr. Clemente and admitted to the ICU. Patient was extubated on 09.09.18 around 8pm but had to be re-intubated around 9:30pm. It appears patient may had a mucus plug. Also, once sedation stopped the seizure continued. EEG ordered. Staph aureus growing out trach culture, started IV Vancomycin 09/10/18. EEG and neurology consult ordered. * CT head wo contrast IMPRESSION: No acute intracranial abnormality. No change. * pCXR IMPRESSION: Slight atelectasis and mild effusion left lower lung. * CT cervical spine wo contrast IMPRESSION: 1. No evidence of fracture or subluxation. 2. Cervical spondylosis with multiple level canal and foraminal stenosis. If further imaging is required, MRI may be helpful. 3. Pulmonary emphysema. Hospital physical. GENERAL: well-developed -[place] elderly male lying on bed appeared to be in no discomfort. HEENT: Normocephalic. Atraumatic. No conjunctival congestion or icterus. Patient has moist mucous membranes. NECK: Supple. Trachea midline. CHEST/LUNGS: Clear to auscultated bilaterally, breathing nonlabored. No wheezes crackles or rhonchi. HEART/CARDIOVASCULAR: Regular in rate and rhythm. S1 and S2 positive. ABDOMEN: Abdomen is soft, nontender. Patient has normal bowel sounds. SKIN: There is no rash. Warm and dry. NEURO: No focal motor deficit. Confused. MUSCULOSKELETAL: No joint effusion or tenderness. EXTRIMITY: No edema, no cyanosis or clubbing. PSYCH: Not oriented to time place or person. Subjective Date of service: 09/16/18 Principal diagnosis: acute respiratory failure, seizure, history of dementia, Interval history: Patient seen and examined. Medical records and medication list reviewed. No acute event overnight noted by the RN. Extubated yesterday, Per RN still agitated, patient remained confused but Patient denies any chest pain or difficulty breathing. Speech eval pending Discussed plan of care at bedside with patient. Objective - Constitutional Vitals: Vital Signs - 12hr 09/16/18 09/16/18 09/16/18 02:00 03:00 04:00 Temperature 98.1 F Pulse Rate 99 H 98 H 94 H Pulse Rate [ Anterior Bilateral Throughout] Pulse Rate [ From Monitor] Respiratory 16 23 17 Rate Respiratory Rate [Anterior Bilateral Throughout] Blood Pressure 124/78 136/69 132/83 O2 Sat by Pulse 97 97 99 Oximetry 09/16/18 09/16/18 09/16/18 05:00 06:00 07:00 Temperature Pulse Rate 98 H 87 86 Pulse Rate [ Anterior Bilateral Throughout] Pulse Rate [ From Monitor] Respiratory 15 14 15 Rate Respiratory Rate [Anterior Bilateral Throughout] Blood Pressure 131/84 130/78 123/82 O2 Sat by Pulse 100 100 97 Oximetry 09/16/18 09/16/18 09/16/18 07:54 07:59 08:00 Temperature 97.2 F L Pulse Rate 83 Pulse Rate [ 83 Anterior Bilateral Throughout] Pulse Rate [ 92 H From Monitor] Respiratory 17 Rate Respiratory 14 Rate [Anterior Bilateral Throughout] Blood Pressure 127/81 O2 Sat by Pulse 95 98 Oximetry 09/16/18 09/16/18 09/16/18 08:03 09:00 10:00 Temperature Pulse Rate 82 68 Pulse Rate [ 94 H Anterior Bilateral Throughout] Pulse Rate [ From Monitor] Respiratory 15 14 Rate Respiratory 15 Rate [Anterior Bilateral Throughout] Blood Pressure 120/77 115/76 O2 Sat by Pulse 99 100 Oximetry 09/16/18 09/16/18 09/16/18 11:00 12:00 12:01 Temperature 97.7 F Pulse Rate 89 83 Pulse Rate [ Anterior Bilateral Throughout] Pulse Rate [ 82 From Monitor] Respiratory 18 13 Rate Respiratory Rate [Anterior Bilateral Throughout] Blood Pressure 126/84 127/69 O2 Sat by Pulse 98 100 Oximetry - Labs CBC & Chem 7: 09/15/18 04:35 09/16/18 07:40 Labs: Abnormal lab results 09/15/18 09/16/18 09/16/18 Range/Units 17:51 05:37 07:40 Sodium 146 H (137-145) mmol/L Carbon Dioxide 33 H (22-30) mmol/L POC Glucose 114 H 114 H (70-105) AST 46 H (5-40) units/L Total Protein 5.9 L (6.3-8.2) g/dL Albumin 2.8 L (3.9-5) g/dL
[2018-09-16] MEDS: LOVENOX SUB-Q SCH (22:13)
[2018-09-16] MEDS: REMERON PO SCH (22:14)
--- NOTE | 2018-09-17 09:01 | Progress Note ---
Assessment and Plan Acute respiratory failure, mechanical ventilation support. Successfully extubated. On nasal cannula Seizure episodes. No near events. Off INH. EEG results within normal limits see report Agitation. Controlled Past medical history dementia Past medical history of conversion disorder.Per RN report History of alcohol abuse. Reportedly no intake prior to admission Emphysema. Controlled. Elevated bicarbonate level noted LTBI?. Apparently on INH/thiamine treatment. Reportedly, patient on treatment at least for the past 1-2 years Recommendations Continue Seizure TX CBC/WBC f/u Advance nutritional support later as tolerated Patient can be possibly transferred out of the ICU, if no additional problems Discussed with patient staff in detail. All questions answered. Subjective Date of service: 09/17/18 Principal diagnosis: acute respiratory failure, seizure, history of dementia, Interval history: Extubated. No events overnight. No seizures reported. Reports no additional complaints Objective Vital Signs - 12hr 09/16/18 09/16/18 09/16/18 21:06 21:14 21:27 Temperature Pulse Rate 99 H Pulse Rate [ 84 Anterior Bilateral Throughout] Respiratory Rate Respiratory 16 Rate [Anterior Bilateral Throughout] Blood Pressure 145/80 O2 Sat by Pulse 93 Oximetry 09/16/18 09/16/18 09/16/18 22:00 23:00 23:22 Temperature Pulse Rate 95 H 92 H 93 H Pulse Rate [ Anterior Bilateral Throughout] Respiratory 14 21 17 Rate Respiratory Rate [Anterior Bilateral Throughout] Blood Pressure 119/77 140/85 140/85 O2 Sat by Pulse 93 99 100 Oximetry 09/17/18 09/17/18 09/17/18 00:00 01:00 02:00 Temperature 98.7 F Pulse Rate 94 H 97 H 77 Pulse Rate [ Anterior Bilateral Throughout] Respiratory 15 12 11 L Rate Respiratory Rate [Anterior Bilateral Throughout] Blood Pressure 135/79 135/78 138/75 O2 Sat by Pulse 99 98 97 Oximetry 09/17/18 09/17/18 09/17/18 03:00 04:00 05:00 Temperature 98.8 F Pulse Rate 108 H 98 H 89 Pulse Rate [ Anterior Bilateral Throughout] Respiratory 15 23 16 Rate Respiratory Rate [Anterior Bilateral Throughout] Blood Pressure 132/81 126/68 125/78 O2 Sat by Pulse 100 Oximetry 09/17/18 06:00 Temperature Pulse Rate 88 Pulse Rate [ Anterior Bilateral Throughout] Respiratory 12 Rate Respiratory Rate [Anterior Bilateral Throughout] Blood Pressure 131/79 O2 Sat by Pulse Oximetry Constitutional: no acute distress, alert, asleep Eyes: non-icteric Neck: supple Effort: normal Ascultation: Bilateral: clear Percussion: Bilateral: not dull Cardiovascular: regular rate and rhythm Gastrointestinal: soft, non-tender Extremities: no cyanosis, no edema, pink and warm, pulses normal Neurologic: normal mental status, non-focal exam Psychiatric: mood appropriate, affect normal CBC and BMP: 09/15/18 04:35 09/16/18 07:40 ABG, PT/INR, D-dimer: ABG POC ABG pH 7.400 (7.35-7.45) 09/15/18 10:45 POC ABG pCO2 48.8 (35-45) H 09/15/18 10:45 POC ABG pO2 95 (80-105) 09/15/18 10:45 POC ABG HCO3 30.2 (22-26 mml/L) 09/15/18 10:45 POC ABG Total CO2 32 (23-27mmol/L) 09/15/18 10:45 POC ABG O2 Sat 97 09/15/18 10:45 Abnormal lab findings: Abnormal Labs 09/08/18 09/08/18 09/08/18 13:04 13:04 13:04 WBC 13.7 H RBC Hgb Hct Plt Count Lymphocytes % (Manual) 39.0 H Eosinophils # (Manual) POC ABG pH POC ABG pCO2 POC ABG pO2 Sodium Potassium Chloride Carbon Dioxide 15 L BUN Glucose POC Glucose AST Total Protein Albumin TSH 12.130 H Miscellaneous Test 09/08/18 09/10/18 09/10/18 17:18 00:43 04:17 WBC RBC Hgb Hct Plt Count Lymphocytes % (Manual) Eosinophils # (Manual) POC ABG pH 7.477 H 7.306 L POC ABG pCO2 31.5 L 49.4 H 33.6 L POC ABG pO2 136 H 112 H 124 H Sodium Potassium Chloride Carbon Dioxide BUN Glucose POC Glucose AST Total Protein Albumin TSH Miscellaneous Test 09/10/18 09/10/18 09/10/18 10:34 10:34 11:41 WBC 21.2 H RBC Hgb Hct Plt Count 125 L Lymphocytes % (Manual) Eosinophils # (Manual) POC ABG pH POC ABG pCO2 POC ABG pO2 Sodium 136 L Potassium Chloride Carbon Dioxide 21 L BUN Glucose 109 H POC Glucose 107 H AST Total Protein Albumin TSH Miscellaneous Test 09/10/18 09/10/18 09/10/18 19:08 19:59 20:57 WBC RBC Hgb Hct Plt Count Lymphocytes % (Manual) Eosinophils # (Manual) POC ABG pH POC ABG pCO2 POC ABG pO2 Sodium Potassium Chloride Carbon Dioxide BUN Glucose POC Glucose 121 H 122 H 128 H AST Total Protein Albumin TSH Miscellaneous Test 09/10/18 09/10/18 09/11/18 22:01 23:05 00:01 WBC RBC Hgb Hct Plt Count Lymphocytes % (Manual) Eosinophils # (Manual) POC ABG pH POC ABG pCO2 POC ABG pO2 Sodium Potassium Chloride Carbon Dioxide BUN Glucose POC Glucose 126 H 109 H 136 H AST Total Protein Albumin TSH Miscellaneous Test 09/11/18 09/11/18 09/11/18 01:04 02:00 02:56 WBC RBC Hgb Hct Plt Count Lymphocytes % (Manual) Eosinophils # (Manual) POC ABG pH POC ABG pCO2 POC ABG pO2 Sodium Potassium Chloride Carbon Dioxide BUN Glucose POC Glucose 128 H 127 H 132 H AST Total Protein Albumin TSH Miscellaneous Test 09/11/18 09/11/18 09/11/18 03:54 04:57 05:05 WBC 17.0 H RBC Hgb 11.4 L Hct 33.8 L Plt Count 110 L Lymphocytes % (Manual) Eosinophils # (Manual) POC ABG pH 7.462 H POC ABG pCO2 31.2 L POC ABG pO2 109 H Sodium Potassium Chloride Carbon Dioxide BUN Glucose POC Glucose 112 H AST Total Protein Albumin TSH Miscellaneous Test 09/11/18 09/11/18 09/11/18 05:05 05:16 06:00 WBC RBC Hgb Hct Plt Count Lymphocytes % (Manual) Eosinophils # (Manual) POC ABG pH POC ABG pCO2 POC ABG pO2 Sodium 134 L Potassium 3.2 L Chloride 97.5 L Carbon Dioxide BUN Glucose 144 H POC Glucose 150 H 178 H AST Total Protein Albumin TSH Miscellaneous Test 09/11/18 09/11/18 09/11/18 06:54 08:01 09:14 WBC RBC Hgb Hct Plt Count Lymphocytes % (Manual) Eosinophils # (Manual) POC ABG pH POC ABG pCO2 POC ABG pO2 Sodium Potassium Chloride Carbon Dioxide BUN Glucose POC Glucose 146 H 116 H 114 H AST Total Protein Albumin TSH Miscellaneous Test 09/11/18 09/11/18 09/11/18 12:43 17:09 21:31 WBC RBC Hgb Hct Plt Count Lymphocytes % (Manual) Eosinophils # (Manual) POC ABG pH POC ABG pCO2 POC ABG pO2 Sodium Potassium Chloride Carbon Dioxide BUN Glucose POC Glucose 144 H 125 H 141 H AST Total Protein Albumin TSH Miscellaneous Test 09/12/18 09/12/18 09/12/18 02:05 04:55 04:55 WBC 11.5 H RBC Hgb 11.3 L Hct 34.0 L Plt Count Lymphocytes % (Manual) 43.0 H Eosinophils # (Manual) 0.5 H POC ABG pH POC ABG pCO2 POC ABG pO2 Sodium 136 L Potassium Chloride Carbon Dioxide BUN 8 L Glucose 122 H POC Glucose 140 H AST Total Protein Albumin TSH Miscellaneous Test 09/12/18 09/12/18 09/12/18 05:35 10:50 11:21 WBC RBC Hgb Hct Plt Count Lymphocytes % (Manual) Eosinophils # (Manual) POC ABG pH POC ABG pCO2 POC ABG pO2 Sodium Potassium Chloride Carbon Dioxide BUN Glucose POC Glucose 115 H 149 H AST Total Protein Albumin TSH Miscellaneous Test Flexitest 1 H 09/12/18 09/12/18 09/12/18 13:15 18:05 21:31 WBC RBC Hgb Hct Plt Count Lymphocytes % (Manual) Eosinophils # (Manual) POC ABG pH POC ABG pCO2 POC ABG pO2 Sodium Potassium Chloride Carbon Dioxide BUN Glucose POC Glucose 133 H 132 H 142 H AST Total Protein Albumin TSH Miscellaneous Test 09/13/18 09/13/18 09/13/18 02:09 04:30 04:30 WBC 12.3 H RBC 3.35 L Hgb 10.3 L Hct 30.6 L Plt Count Lymphocytes % (Manual) Eosinophils # (Manual) POC ABG pH POC ABG pCO2 POC ABG pO2 Sodium Potassium Chloride Carbon Dioxide BUN Glucose 117 H POC Glucose 120 H AST Total Protein Albumin TSH Miscellaneous Test 09/13/18 09/13/18 09/13/18 05:41 11:07 18:16 WBC RBC Hgb Hct Plt Count Lymphocytes % (Manual) Eosinophils # (Manual) POC ABG pH 7.457 H POC ABG pCO2 POC ABG pO2 113 H Sodium Potassium Chloride Carbon Dioxide BUN Glucose POC Glucose 164 H 125 H AST Total Protein Albumin TSH Miscellaneous Test 09/13/18 09/14/18 09/14/18 23:31 04:00 05:32 WBC RBC Hgb Hct Plt Count Lymphocytes % (Manual) Eosinophils # (Manual) POC ABG pH 7.534 H POC ABG pCO2 33.6 L POC ABG pO2 111 H Sodium Potassium Chloride Carbon Dioxide BUN Glucose POC Glucose 135 H 116 H AST Total Protein Albumin TSH Miscellaneous Test 09/14/18 09/14/18 09/14/18 07:14 11:40 17:01 WBC RBC Hgb Hct Plt Count Lymphocytes % (Manual) Eosinophils # (Manual) POC ABG pH POC ABG pCO2 POC ABG pO2 Sodium Potassium 3.5 L Chloride Carbon Dioxide BUN Glucose 116 H POC Glucose 165 H 120 H AST Total Protein Albumin TSH Miscellaneous Test 09/14/18 09/15/18 09/15/18 23:13 04:35 04:35 WBC 14.8 H RBC 3.50 L Hgb 10.9 L Hct 32.1 L Plt Count Lymphocytes % (Manual) Eosinophils # (Manual) POC ABG pH POC ABG pCO2 POC ABG pO2 Sodium Potassium 3.5 L Chloride Carbon Dioxide BUN Glucose 111 H POC Glucose 118 H AST Total Protein Albumin TSH Miscellaneous Test 09/15/18 09/15/18 09/15/18 06:06 10:45 12:08 WBC RBC Hgb Hct Plt Count Lymphocytes % (Manual) Eosinophils # (Manual) POC ABG pH POC ABG pCO2 48.8 H POC ABG pO2 Sodium Potassium Chloride Carbon Dioxide BUN Glucose POC Glucose 121 H 114 H AST Total Protein Albumin TSH Miscellaneous Test 09/15/18 09/16/18 09/16/18 17:51 05:37 07:40 WBC RBC Hgb Hct Plt Count Lymphocytes % (Manual) Eosinophils # (Manual) POC ABG pH POC ABG pCO2 POC ABG pO2 Sodium 146 H Potassium Chloride Carbon Dioxide 33 H BUN Glucose POC Glucose 114 H 114 H AST 46 H Total Protein 5.9 L Albumin 2.8 L TSH Miscellaneous Test
[2018-09-17] MEDS: DUONEB *Not for PRN Use IH SCH ×4 (09:13→20:13)
[2018-09-17] MEDS: FOLVITE PO SCH (10:00)
[2018-09-17] MEDS: PEPCID PO SCH ×2 (10:00→21:46)
[2018-09-17] MEDS: KEPPRA PO SCH ×2 (10:00→21:48)
[2018-09-17] MEDS: VITAMIN B-1 PO SCH (10:00)
--- NOTE | 2018-09-17 14:35 | Progress Note ---
Assessment and Plan /Acute respiratory failure Likely from status epilepticus Patient extubated 09/15 ABG reviewed Pulmonary note reviewed and appreciated Continue management per pulmonary recommendations Nebulizer and supplemental O2 as needed /status post status epilepticus Continue Tho, neurology consulted, EEG ordered /Possible MSSA tracheobronchitis v/s colonization: CXR without consolidations Off antibiotic ID note reviewed Blood cultures negative /SIRS, Likely reactive secondary to seizures WBC count Trending down, no solid infectious etiology Off antibiotic /Acute on chronic encephalopathy - Still appears confused, - Likely from status epilepticus and underlying alcoholic dementia - Start on diet /Alcoholic dementia - Supportive care /Status post fall with head trauma - Due to seizure, supportive care / Hypokalemia, repleted /Urinary Retention, Prasad in place, which was removed, then re-inserted on 09/10/18 (i believe) for urinary retention /DVT prophylaxis, Lovenox Disposition: Transferred to telemetry, order PT eval Brief History; Patient is a 67 yo man from [facility] with a history of Advance Dementia, COPD, Anxiety disorder, Seizure disorder due to prior ETOH abuse, gout and CKD 3 who presented to [facility] ED after seizure and fall resulting in patient hitting his head on the floor causing laceration followed by agitation. There is report of him being non-compliant with meds at the [place]. He was combative en route to hospital and EMS gave him Versed. He was sedaged and unresponsive with pulse ox of only 85% on Nonrebreather 100% O2 mask. He was subsequently intubated by Dr. Clemente and admitted to the ICU. Patient was extubated on 09.09.18 around 8pm but had to be re-intubated around 9:30pm. It appears patient may had a mucus plug. Also, once sedation stopped the seizure continued. EEG ordered. Staph aureus growing out trach culture, started IV Vancomycin 09/10/18. EEG and neurology consult ordered. * CT head wo contrast IMPRESSION: No acute intracranial abnormality. No change. * pCXR IMPRESSION: Slight atelectasis and mild effusion left lower lung. * CT cervical spine wo contrast IMPRESSION: 1. No evidence of fracture or subluxation. 2. Cervical spondylosis with multiple level canal and foraminal stenosis. If further imaging is required, MRI may be helpful. 3. Pulmonary emp hysema. Hospital physical. GENERAL: well-developed -[place] elderly male lying on bed appeared to be in no discomfort. HEENT: Normocephalic. Atraumatic. No conjunctival congestion or icterus. Patient has moist mucous membranes. NECK: Supple. Trachea midline. CHEST/LUNGS: Clear to auscultated bilaterally, breathing nonlabored. No wheezes crackles or rhonchi. HEART/CARDIOVASCULAR: Regular in rate and rhythm. S1 and S2 positive. ABDOMEN: Abdomen is soft, nontender. Patient has normal bowel sounds. SKIN: There is no rash. Warm and dry. NEURO: No focal motor deficit. Confused. MUSCULOSKELETAL: No joint effusion or tenderness. EXTRIMITY: No edema, no cyanosis or clubbing. PSYCH: Not oriented to time place or person. Subjective Date of service: 09/17/18 Principal diagnosis: acute respiratory failure, seizure, history of dementia, Interval history: Patient seen and examined. Medical records and medication list reviewed. No acute event overnight noted by the RN. patient remained confused but Patient denies any chest pain or difficulty breathing. Passed the swallow eval Discussed plan of care at bedside with patient. Objective - Constitutional Vitals: Vital Signs - 12hr 09/17/18 09/17/18 09/17/18 03:00 04:00 05:00 Temperature 98.8 F Pulse Rate 108 H 98 H 89 Pulse Rate [ Anterior Bilateral Throughout] Respiratory 15 23 16 Rate Respiratory Rate [Anterior Bilateral Throughout] Blood Pressure 132/81 126/68 125/78 O2 Sat by Pulse 100 Oximetry 09/17/18 09/17/18 09/17/18 06:00 07:00 08:00 Temperature 97.8 F Pulse Rate 88 94 H 89 Pulse Rate [ Anterior Bilateral Throughout] Respiratory 12 19 13 Rate Respiratory Rate [Anterior Bilateral Throughout] Blood Pressure 131/79 121/79 121/78 O2 Sat by Pulse Oximetry 09/17/18 09/17/18 09/17/18 09:00 09:13 09:23 Temperature Pulse Rate Pulse Rate [ 83 96 H Anterior Bilateral Throughout] Respiratory Rate Respiratory 20 20 Rate [Anterior Bilateral Throughout] Blood Pressure 123/77 O2 Sat by Pulse 99 Oximetry 09/17/18 09/17/18 09/17/18 10:00 11:00 12:00 Temperature Pulse Rate 89 94 H 98 H Pulse Rate [ Anterior Bilateral Throughout] Respiratory 29 H 26 H 33 H Rate Respiratory Rate [Anterior Bilateral Throughout] Blood Pressure 119/73 138/84 119/78 O2 Sat by Pulse 99 97 99 Oximetry 09/17/18 09/17/18 09/17/18 13:00 14:21 14:31 Temperature Pulse Rate 98 H Pulse Rate [ 85 88 Anterior Bilateral Throughout] Respiratory 25 H Rate Respiratory 20 20 Rate [Anterior Bilateral Throughout] Blood Pressure 135/89 O2 Sat by Pulse 98 Oximetry - Labs CBC & Chem 7: 09/15/18 04:35 09/16/18 07:40 Labs: Abnormal lab results 09/17/18 Range/Units 11:48 POC Glucose 120 H (70-105)
[2018-09-17] MEDS: REMERON PO SCH (21:46)
[2018-09-17] MEDS: LOVENOX SUB-Q SCH (21:46)
[2018-09-18] MEDS: DUONEB *Not for PRN Use IH SCH ×4 (09:30→19:25)
--- NOTE | 2018-09-18 10:33 | Progress Note ---
Assessment and Plan 67 y/o male admitted with seizures and altered mental status, required mechanical ventilation for hypoxic respiratory failure thought secondary to meds used for control of agitation, s/p extubation, failed and reintubated in less than 8 hours, now extubated and stable. 1. Pulm issues have resolved 2. All others per primary team. 3. Will sign off. Subjective Date of service: 09/18/18 Principal diagnosis: acute respiratory failure, seizure, history of dementia, Interval history: Successful transfer out of unit on yesterday. Awake. Sitting up in bed on room air. Restrained. Objective Vital Signs - 12hr 09/17/18 09/18/18 09/18/18 23:31 03:40 08:21 Temperature 98.2 F 98.7 F 97.9 F Pulse Rate 105 H 97 H 92 H Pulse Rate [ Anterior Bilateral Throughout] Respiratory 18 18 18 Rate Respiratory Rate [Anterior Bilateral Throughout] Blood Pressure 125/70 133/77 118/73 O2 Sat by Pulse 99 97 95 Oximetry 09/18/18 09/18/18 09/18/18 09:30 09:32 09:45 Temperature Pulse Rate Pulse Rate [ 90 102 H Anterior Bilateral Throughout] Respiratory Rate Respiratory 18 20 Rate [Anterior Bilateral Throughout] Blood Pressure O2 Sat by Pulse 97 Oximetry Constitutional: no acute distress, alert, asleep Eyes: non-icteric ENT: other (intubated) Neck: supple Effort: normal Ascultation: Bilateral: clear Percussion: Bilateral: not dull Cardiovascular: regular rate and rhythm Gastrointestinal: soft, non-tender Extremities: no cyanosis, no edema, pink and warm, pulses normal Neurologic: normal mental status, non-focal exam Psychiatric: mood appropriate, affect normal CBC and BMP: 09/15/18 04:35 09/16/18 07:40 ABG, PT/INR, D-dimer: ABG POC ABG pH 7.400 (7.35-7.45) 09/15/18 10:45 POC ABG pCO2 48.8 (35-45) H 09/15/18 10:45 POC ABG pO2 95 (80-105) 09/15/18 10:45 POC ABG HCO3 30.2 (22-26 mml/L) 09/15/18 10:45 POC ABG Total CO2 32 (23-27mmol/L) 09/15/18 10:45 POC ABG O2 Sat 97 09/15/18 10:45 Abnormal lab findings: Abnormal Labs 09/08/18 09/08/18 09/08/18 13:04 13:04 13:04 WBC 13.7 H RBC Hgb Hct Plt Count Lymphocytes % (Manual) 39.0 H Eosinophils # (Manual) POC ABG pH POC ABG pCO2 POC ABG pO2 Sodium Potassium Chloride Carbon Dioxide 15 L BUN Glucose POC Glucose AST Total Protein Albumin TSH 12.130 H Miscellaneous Test 09/08/18 09/10/18 09/10/18 17:18 00:43 04:17 WBC RBC Hgb Hct Plt Count Lymphocytes % (Manual) Eosinophils # (Manual) POC ABG pH 7.477 H 7.306 L POC ABG pCO2 31.5 L 49.4 H 33.6 L POC ABG pO2 136 H 112 H 124 H Sodium Potassium Chloride Carbon Dioxide BUN Glucose POC Glucose AST Total Protein Albumin TSH Miscellaneous Test 09/10/18 09/10/18 09/10/18 10:34 10:34 11:41 WBC 21.2 H RBC Hgb Hct Plt Count 125 L Lymphocytes % (Manual) Eosinophils # (Manual) POC ABG pH POC ABG pCO2 POC ABG pO2 Sodium 136 L Potassium Chloride Carbon Dioxide 21 L BUN Glucose 109 H POC Glucose 107 H AST Total Protein Albumin TSH Miscellaneous Test 09/10/18 09/10/18 09/10/18 19:08 19:59 20:57 WBC RBC Hgb Hct Plt Count Lymphocytes % (Manual) Eosinophils # (Manual) POC ABG pH POC ABG pCO2 POC ABG pO2 Sodium Potassium Chloride Carbon Dioxide BUN Glucose POC Glucose 121 H 122 H 128 H AST Total Protein Albumin TSH Miscellaneous Test 09/10/18 09/10/18 09/11/18 22:01 23:05 00:01 WBC RBC Hgb Hct Plt Count Lymphocytes % (Manual) Eosinophils # (Manual) POC ABG pH POC ABG pCO2 POC ABG pO2 Sodium Potassium Chloride Carbon Dioxide BUN Glucose POC Glucose 126 H 109 H 136 H AST Total Protein Albumin TSH Miscellaneous Test 09/11/18 09/11/18 09/11/18 01:04 02:00 02:56 WBC RBC Hgb Hct Plt Count Lymphocytes % (Manual) Eosinophils # (Manual) POC ABG pH POC ABG pCO2 POC ABG pO2 Sodium Potassium Chloride Carbon Dioxide BUN Glucose POC Glucose 128 H 127 H 132 H AST Total Protein Albumin TSH Miscellaneous Test 09/11/18 09/11/18 09/11/18 03:54 04:57 05:05 WBC 17.0 H RBC Hgb 11.4 L Hct 33.8 L Plt Count 110 L Lymphocytes % (Manual) Eosinophils # (Manual) POC ABG pH 7.462 H POC ABG pCO2 31.2 L POC ABG pO2 109 H Sodium Potassium Chloride Carbon Dioxide BUN Glucose POC Glucose 112 H AST Total Protein Albumin TSH Miscellaneous Test 09/11/18 09/11/18 09/11/18 05:05 05:16 06:00 WBC RBC Hgb Hct Plt Count Lymphocytes % (Manual) Eosinophils # (Manual) POC ABG pH POC ABG pCO2 POC ABG pO2 Sodium 134 L Potassium 3.2 L Chloride 97.5 L Carbon Dioxide BUN Glucose 144 H POC Glucose 150 H 178 H AST Total Protein Albumin TSH Miscellaneous Test 09/11/18 09/11/18 09/11/18 06:54 08:01 09:14 WBC RBC Hgb Hct Plt Count Lymphocytes % (Manual) Eosinophils # (Manual) POC ABG pH POC ABG pCO2 POC ABG pO2 Sodium Potassium Chloride Carbon Dioxide BUN Glucose POC Glucose 146 H 116 H 114 H AST Total Protein Albumin TSH Miscellaneous Test 09/11/18 09/11/18 09/11/18 12:43 17:09 21:31 WBC RBC Hgb Hct Plt Count Lymphocytes % (Manual) Eosinophils # (Manual) POC ABG pH POC ABG pCO2 POC ABG pO2 Sodium Potassium Chloride Carbon Dioxide BUN Glucose POC Glucose 144 H 125 H 141 H AST Total Protein Albumin TSH Miscellaneous Test 09/12/18 09/12/18 09/12/18 02:05 04:55 04:55 WBC 11.5 H RBC Hgb 11.3 L Hct 34.0 L Plt Count Lymphocytes % (Manual) 43.0 H Eosinophils # (Manual) 0.5 H POC ABG pH POC ABG pCO2 POC ABG pO2 Sodium 136 L Potassium Chloride Carbon Dioxide BUN 8 L Glucose 122 H POC Glucose 140 H AST Total Protein Albumin TSH Miscellaneous Test 09/12/18 09/12/18 09/12/18 05:35 10:50 11:21 WBC RBC Hgb Hct Plt Count Lymphocytes % (Manual) Eosinophils # (Manual) POC ABG pH POC ABG pCO2 POC ABG pO2 Sodium Potassium Chloride Carbon Dioxide BUN Glucose POC Glucose 115 H 149 H AST Total Protein Albumin TSH Miscellaneous Test Flexitest 1 H 09/12/18 09/12/18 09/12/18 13:15 18:05 21:31 WBC RBC Hgb Hct Plt Count Lymphocytes % (Manual) Eosinophils # (Manual) POC ABG pH POC ABG pCO2 POC ABG pO2 Sodium Potassium Chloride Carbon Dioxide BUN Glucose POC Glucose 133 H 132 H 142 H AST Total Protein Albumin TSH Miscellaneous Test 09/13/18 09/13/18 09/13/18 02:09 04:30 04:30 WBC 12.3 H RBC 3.35 L Hgb 10.3 L Hct 30.6 L Plt Count Lymphocytes % (Manual) Eosinophils # (Manual) POC ABG pH POC ABG pCO2 POC ABG pO2 Sodium Potassium Chloride Carbon Dioxide BUN Glucose 117 H POC Glucose 120 H AST Total Protein Albumin TSH Miscellaneous Test 09/13/18 09/13/18 09/13/18 05:41 11:07 18:16 WBC RBC Hgb Hct Plt Count Lymphocytes % (Manual) Eosinophils # (Manual) POC ABG pH 7.457 H POC ABG pCO2 POC ABG pO2 113 H Sodium Potassium Chloride Carbon Dioxide BUN Glucose POC Glucose 164 H 125 H AST Total Protein Albumin TSH Miscellaneous Test 09/13/18 09/14/18 09/14/18 23:31 04:00 05:32 WBC RBC Hgb Hct Plt Count Lymphocytes % (Manual) Eosinophils # (Manual) POC ABG pH 7.534 H POC ABG pCO2 33.6 L POC ABG pO2 111 H Sodium Potassium Chloride Carbon Dioxide BUN Glucose POC Glucose 135 H 116 H AST Total Protein Albumin TSH Miscellaneous Test 09/14/18 09/14/18 09/14/18 07:14 11:40 17:01 WBC RBC Hgb Hct Plt Count Lymphocytes % (Manual) Eosinophils # (Manual) POC ABG pH POC ABG pCO2 POC ABG pO2 Sodium Potassium 3.5 L Chloride Carbon Dioxide BUN Glucose 116 H POC Glucose 165 H 120 H AST Total Protein Albumin TSH Miscellaneous Test 09/14/18 09/15/18 09/15/18 23:13 04:35 04:35 WBC 14.8 H RBC 3.50 L Hgb 10.9 L Hct 32.1 L Plt Count Lymphocytes % (Manual) Eosinophils # (Manual) POC ABG pH POC ABG pCO2 POC ABG pO2 Sodium Potassium 3.5 L Chloride Carbon Dioxide BUN Glucose 111 H POC Glucose 118 H AST Total Protein Albumin TSH Miscellaneous Test 09/15/18 09/15/18 09/15/18 06:06 10:45 12:08 WBC RBC Hgb Hct Plt Count Lymphocytes % (Manual) Eosinophils # (Manual) POC ABG pH POC ABG pCO2 48.8 H POC ABG pO2 Sodium Potassium Chloride Carbon Dioxide BUN Glucose POC Glucose 121 H 114 H AST Total Protein Albumin TSH Miscellaneous Test 09/15/18 09/16/18 09/16/18 17:51 05:37 07:40 WBC RBC Hgb Hct Plt Count Lymphocytes % (Manual) Eosinophils # (Manual) POC ABG pH POC ABG pCO2 POC ABG pO2 Sodium 146 H Potassium Chloride Carbon Dioxide 33 H BUN Glucose POC Glucose 114 H 114 H AST 46 H Total Protein 5.9 L Albumin 2.8 L TSH Miscellaneous Test 09/17/18 09/17/18 09/18/18 11:48 17:56 00:12 WBC RBC Hgb Hct Plt Count Lymphocytes % (Manual) Eosinophils # (Manual) POC ABG pH POC ABG pCO2 POC ABG pO2 Sodium Potassium Chloride Carbon Dioxide BUN Glucose POC Glucose 120 H 130 H 121 H AST Total Protein Albumin TSH Miscellaneous Test
[2018-09-18] MEDS: VITAMIN B-1 PO SCH (10:43)
[2018-09-18] MEDS: KEPPRA PO SCH ×2 (10:43→21:18)
[2018-09-18] MEDS: PEPCID PO SCH ×2 (10:43→21:20)
[2018-09-18] MEDS: FOLVITE PO SCH (10:43)
--- NOTE | 2018-09-18 13:52 | Progress Note ---
Assessment and Plan Cultures: Sputum 09/09/2018 MSSA Sputum 09/10/2018 MSSA Blood culture: no growth Assessment: 1) SIRS: Improved. Leukocytosis trending up. etiology unclear. UA negative. CXR x 3 no consolidations. ? early pneumonia +/- seizures 2) Possible MSSA tracheobronchitis v/s colonization: CXR without consolidations, +emphysema changes. WBC trending up. Will order repeat CXR. 3) Acute respiratory failure: on R/A 4) Status Epilepticus: improved. 5) Acute encephalopathy: from seizures 6) ?LTBI: apparently, treatment was initiated in 2015 and likely completed, hence INH and B6 were d/tristin. Recommendations: - continue to monitor off abx. -order CXR for leukocytosis -CBC ordered for tomorrow MARY JO [employer] [facility] M: [phone] O:[phone] Subjective Date of service: 09/18/18 Principal diagnosis: acute respiratory failure, seizure, history of dementia, Interval history: Patient seen and examined. Sitting up in bed. No acute distress observed. Follows simple commands. Objective - Exam Narrative Exam: Constitutional: Alert, cooperative. No acute distress Head, Ears, Nose: Normocephalic, atraumatic. External ears, nose normal Eyes: Conjunctivae/corneas clear. No icterus. No ptosis. Neck: Supple, no meningeal signs Oral: dentition poor, no thrush. Cardiovascular: S1, S2 normal. Respiratory: Good air entry, clear to auscultation bilaterally GI: Soft, non-tender; bowel sounds normal. No peritoneal signs Musculoskeletal: extensive right lateral forefoot necrotic changes and devitalized tissue Skin: Normal temperature, turgor and texture; no rash, ulcers or subcutaneous nodules Hem/Lymphatic: No palpable cervical or supraclavicular nodes. No lymphangitis Psych: Mood ok. Affect normal Neurological: Awake, alert, dementia - Constitutional Vitals: Vital Signs Temp Pulse Resp BP Pulse Ox 97.9 F 91 H 18 109/76 97 09/18/18 11:44 09/18/18 11:44 09/18/18 11:44 09/18/18 11:44 09/18/18 12:38 Temperature -Last 24 Hours Temperature 97.9 F Temperature 97.9 F Temperature 98.7 F Temperature 98.2 F Temperature 98.0 F Temperature 98.4 F - Labs CBC & Chem 7: 09/15/18 04:35 09/16/18 07:40 Labs: Abnormal lab results 09/17/18 09/18/18 09/18/18 Range/Units 17:56 00:12 11:43 POC Glucose 130 H 121 H 111 H (70-105)
--- NOTE | 2018-09-18 15:27 | XRay Report ---
AP CHEST: HISTORY: Elevated WBC AP view of the chest demonstrates a normal mediastinal and cardiac contour with clear lungs and normal bony and soft tissue structures. Left arm PICC terminates at the cavoatrial junction. IMPRESSION: Unremarkable AP chest.
--- NOTE | 2018-09-18 15:34 | Progress Note ---
Assessment and Plan /Acute respiratory failure Likely from status epilepticus Patient extubated on 09/15 Pulmonary note reviewed and appreciated Continue management per pulmonary recommendations Nebulizer and supplemental O2 as needed /status post status epilepticus with h/o seizure disorder Continue Tho, neurology consulted, EEG ordered /Possible MSSA tracheobronchitis v/s colonization: CXR without consolidations Off antibiotic ID note reviewed Blood cultures negative /SIRS, Likely reactive secondary to seizures WBC count Trending down, no solid infectious etiology Off antibiotic /Acute on chronic encephalopathy - Still appears confused and intermittently requiring restraint, - Likely from status epilepticus and underlying alcoholic dementia - resumed home meds for dementia, if no improvement will do psych consult /Alcoholic dementia - Supportive care, resumed home meds for dementia /Status post fall with head trauma - Due to seizure, supportive care / Hypokalemia, repleted /Urinary Retention, Prasad in place, which was removed, then re-inserted on 09/10/18 (i believe) for urinary retention /DVT prophylaxis, Lovenox Disposition: d/c back to SNF when off restraint Brief History; Patient is a 67 yo man from [facility] with a history of Advance Dementia, COPD, Anxiety disorder, Seizure disorder due to prior ETOH abuse, gout and CKD 3 who presented to [facility] ED after seizure and fall resulting in patient hitting his head on the floor causing laceration followed by agitation. There is report of him being non-compliant with meds at the [place]. He was combative en route to hospital and EMS gave him Versed. He was sedaged and unresponsive with pulse ox of only 85% on Nonrebreather 100% O2 mask. He was subsequently intubated by Dr. Clemente and admitted to the ICU. Patient was extubated on 09.09.18 around 8pm but had to be re-intubated around 9:30pm. It appears patient may had a mucus plug. Also, once sedation stopped the seizure continued. EEG ordered. Staph aureus growing out trach culture, started IV Vancomycin 09/10/18. EEG and neurology consult ordered. * CT head wo contrast IMPRESSION: No acute intracranial abnormality. No change. * pCXR IMPRESSION: Slight atelectasis and mild effusion left lower lung. * CT cervical spine wo contrast IMPRESSION: 1. No evidence of fracture or subluxation. 2. Cervical spondylosis with multiple level canal and foraminal stenosis. If further imaging is required, MRI may be helpful. 3. Pulmonary emphysema. Hospital physical. GENERAL: well-developed -[place] elderly male lying on bed appeared to be in no discomfort. restraint HEENT: Normocephalic. Atraumatic. No conjunctival congestion or icterus. Patient has moist mucous membranes. NECK: Supple. Trachea midline. CHEST/LUNGS: Clear to auscultated bilaterally, breathing nonlabored. No wheezes crackles or rhonchi. HEART/CARDIOVASCULAR: Regular in rate and rhythm. S1 and S2 positive. ABDOMEN: Abdomen is soft, nontender. Patient has normal bowel sounds. SKIN: There is no rash. Warm and dry. NEURO: No focal motor deficit. Confused. MUSCULOSKELETAL: No joint effusion or tenderness. EXTRIMITY: No edema, no cyanosis or clubbing. PSYCH: Not oriented to time place or person. Subjective Date of service: 09/18/18 Principal diagnosis: acute respiratory failure, seizure, history of dementia, Interval history: Patient seen and examined. Medical records and medication list reviewed. No acute event overnight noted by the RN. patient remained confused but Patient denies any chest pain or difficulty breathing. placed back on restraint today due to agitation Discussed plan of care at bedside with patient. Objective - Constitutional Vitals: Vital Signs - 12hr 09/18/18 09/18/18 09/18/18 03:40 08:21 09:30 Temperature 98.7 F 97.9 F Pulse Rate 97 H 92 H Pulse Rate [ 90 Anterior Bilateral Throughout] Respiratory 18 18 Rate Respiratory 18 Rate [Anterior Bilateral Throughout] Blood Pressure 133/77 118/73 Blood Pressure [Right] O2 Sat by Pulse 97 95 Oximetry 09/18/18 09/18/18 09/18/18 09:32 09:45 11:44 Temperature 97.9 F Pulse Rate 91 H Pulse Rate [ 102 H Anterior Bilateral Throughout] Respiratory 18 Rate Respiratory 20 Rate [Anterior Bilateral Throughout] Blood Pressure Blood Pressure 109/76 [Right] O2 Sat by Pulse 97 91 Oximetry 09/18/18 09/18/18 09/18/18 12:38 15:06 15:19 Temperature Pulse Rate Pulse Rate [ 96 H 93 H Anterior Bilateral Throughout] Respiratory Rate Respiratory 18 18 Rate [Anterior Bilateral Throughout] Blood Pressure Blood Pressure [Right] O2 Sat by Pulse 97 Oximetry - Labs CBC & Chem 7: 09/15/18 04:35 09/16/18 07:40 Labs: Abnormal lab results 09/17/18 09/18/18 09/18/18 Range/Units 17:56 00:12 11:43 POC Glucose 130 H 121 H 111 H (70-105)
[2018-09-18] MEDS ORDERED: NON-FORMULARY (Lacosamide [Vimpat] 200 MG) PO SCH (15:45)
[2018-09-18] MEDS: LOVENOX SUB-Q SCH (21:17)
[2018-09-18] MEDS: VIMPAT PO SCH (21:19)
[2018-09-18] MEDS: celeXA PO SCH (21:19)
[2018-09-18] MEDS: REMERON PO SCH (21:19)
[2018-09-18] MEDS: NAMENDA PO SCH (21:19)
--- NOTE | 2018-09-18 22:54 | Event Note ---
Date: 09/18/18 Advised by pt's primary Nurse carla Hogan pulled out RUC PICC Line. Will order CXR to ensure no foreign body remain post self removal of PICC. Nurse will attempt to obtain peripheral line. If PICC is needed it can be ordered in am.
[2018-09-19 00:54] LABS: Hemoglobin 13.4 gm/dl (11.8-15.2); Mean Corpuscular HGB Conc 33 % (32-34); Mean Corpuscular Volume 92 fl (84-94); Platelet Count 359 K/mm3 (140-440); Red Blood Count 4.33 M/mm3 (3.65-5.03); Red Cell Distribution Width 13.1 % (13.2-15.2)
--- NOTE | 2018-09-19 01:59 | XRay Report ---
PROCEDURE: XR CHEST 1V AP TECHNIQUE: Chest radiograph single view. HISTORY: self removal of LEILA PICC COMPARISONS: 09/15/2018 . FINDINGS: Heart: Normal. Mediastinum/Vessels: Normal. Lungs/Pleural space: There are no acute infiltrates or effusions.. Bony thorax: No acute osseous abnormality. There are chronic left rib fracture deformities along with a chronic fracture deformity of the distal end of the right clavicle. Life support devices: The left-sided PICC line is no longer identified.. IMPRESSION: No acute cardiopulmonary abnormality. This document is electronically signed by Jason Valencia MD., September 19 2018 01:57:21 AM ET
[2018-09-19 06:35] LABS: Band Neutrophils # (Manual) 0.3 K/mm3; Basophils % (Manual) 0 % (0.0-1.8); Total Cells Counted 100
[2018-09-19 06:36] LABS: Macrocytosis 2+; Platelet Estimate Consistent w Auto
[2018-09-19 07:33] LABS: BUN/Creatinine Ratio 10; Blood Urea Nitrogen 13 mg/dL (9-20); Calcium 8.9 mg/dL (8.4-10.2); Hemolysis Index 20
[2018-09-19] MEDS: DUONEB *Not for PRN Use IH SCH ×3 (08:46→19:44)
--- NOTE | 2018-09-19 10:06 | Progress Note ---
Assessment and Plan Cultures: Sputum 09/09/2018 MSSA Sputum 09/10/2018 MSSA Blood culture: no growth Assessment: 1) SIRS: leukocytosis continuing. etiology unclear. UA negative. CXR x 4 no consolidations. ? early pneumonia +/- seizures 2) Possible MSSA tracheobronchitis v/s colonization: CXR without consolidations, +emphysema changes. repeat CXR no consolidations. 3) Acute respiratory failure: on R/A 4) Status Epilepticus: improved. 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 Recommendations: -monitor off abx. -monitor leukocytosis -ID is signing off, please call for questions. Brandy Elizondo NP [facility] M: [phone] O:[phone] Subjective Date of service: 09/19/18 Principal diagnosis: acute respiratory failure, seizure, history of dementia, Interval history: Patient seen and examined. Sitting up in bed. No acute distress observed. Follows simple commands. Objective - Exam Narrative Exam: Constitutional: Alert, cooperative. No acute distress Head, Ears, Nose: Normocephalic, atraumatic. External ears, nose normal Eyes: Conjunctivae/corneas clear. No icterus. No ptosis. Neck: Supple, no meningeal signs Oral: dentition poor, no thrush. Cardiovascular: S1, S2 normal. Respiratory: Good air entry, clear to auscultation bilaterally GI: Soft, non-tender; bowel sounds normal. No peritoneal signs Musculoskeletal: extensive right lateral forefoot necrotic changes and devitalized tissue Skin: Normal temperature, turgor and texture; no rash, ulcers or subcutaneous nodules Hem/Lymphatic: No palpable cervical or supraclavicular nodes. No lymphangitis Psych: Mood ok. Affect normal Neurological: Awake, alert, dementia - Constitutional Vitals: Vital Signs Temp Pulse Resp BP Pulse Ox 97.6 F 94 H 18 98/67 86 09/19/18 09:01 09/19/18 09:17 09/19/18 09:17 09/19/18 09:01 09/19/18 09:01 Temperature -Last 24 Hours Temperature 97.6 F Temperature 98.2 F Temperature 98.4 F Temperature 99.1 F Temperature 97.9 F Temperature 97.9 F - Labs CBC & Chem 7: 09/19/18 00:07 09/19/18 06:56 Labs: Abnormal lab results 09/18/18 09/18/18 09/19/18 Range/Units 11:43 15:46 00:07 WBC 14.1 H (4.5-11.0) K/mm3 RDW 13.1 L (13.2-15.2) % Seg Neuts % (Manual) 28.0 L (40.0-70.0) % Lymphocytes % (Manual) 60.0 H (13.4-35.0) % Lymphocytes # (Manual) 8.5 H (1.2-5.4) K/mm3 POC Glucose 111 H 121 H (70-105)
[2018-09-19] MEDS: KEPPRA PO SCH ×2 (10:15→22:39)
[2018-09-19] MEDS: VIMPAT PO SCH ×2 (10:16→22:39)
[2018-09-19] MEDS: PEPCID PO SCH ×2 (10:16→22:40)
[2018-09-19] MEDS: VITAMIN B-1 PO SCH (10:16)
[2018-09-19] MEDS: FOLVITE PO SCH (10:16)
[2018-09-19] MEDS: NAMENDA PO SCH ×2 (10:16→23:31)
[2018-09-19] MEDS: celeXA PO SCH (10:16)
--- NOTE | 2018-09-19 12:19 | Progress Note ---
Assessment and Plan Assessment and plan: /Acute respiratory failure Likely from status epilepticus Patient extubated on 09/15 Pulmonary note reviewed and appreciated Continue management per pulmonary recommendations Nebulizer and supplemental O2 as needed /status post status epilepticus with h/o seizure disorder Continue Tho, neurology consulted, EEG ordered /Possible MSSA tracheobronchitis v/s colonization: CXR without consolidations Off antibiotic ID note reviewed Blood cultures negative /SIRS, Likely reactive secondary to seizures WBC count Trending down, no solid infectious etiology Off antibiotic /Acute on chronic encephalopathy - Still appears confused and intermittently requiring restraint, - Likely from status epilepticus and underlying alcoholic dementia - resumed home meds for dementia, if no improvement will do psych consult /Alcoholic dementia - Supportive care, resumed home meds for dementia /Status post fall with head trauma - Due to seizure, supportive care / Hypokalemia, repleted /Urinary Retention, Prasad in place, which was removed, then re-inserted on 09/10/18 (i believe) for urinary retention /DVT prophylaxis, Lovenox Disposition: d/c back to SNF when off restraint Brief History; Patient is a 67 yo man from [facility] with a history of Advance Dementia, COPD, Anxiety disorder, Seizure disorder due to prior ETOH abuse, gout and CKD 3 who presented to [facility] ED after seizure and fall resulting in patient hitting his head on the floor causing laceration followed by agitation. There is report of him being non-compliant with meds at the [place]. He was combative en route to hospital and EMS gave him Versed. He was sedaged and unresponsive with pulse ox of only 85% on Nonrebreather 100% O2 mask. He was subsequently intubated by Dr. Clemente and admitted to the ICU. Patient was extubated on 09.09.18 around 8pm but had to be re-intubated around 9:30pm. It appears patient may had a mucus plug. Also, once sedation stopped the seizure continued. EEG ordered. Staph aureus growing out trach culture, started IV Vancomycin 09/10/18. EEG and neurology consult ordered. * CT head wo contrast IMPRESSION: No acute intracranial abnormality. No change. * pCXR IMPRESSION: Slight atelectasis and mild effusion left lower lung. * CT cervical spine wo contrast IMPRESSION: 1. No evidence of fracture or subluxation. 2. Cervical spondylosis with multiple level canal and foraminal stenosis. If further imaging is required, MRI may be helpful. 3. Pulmonary emphysema. History Interval history: Patient Seen and examined medical records reviewed Patient is confused still restrained Not in acute distress Vital signs noted Daughter at the bedside Hospitalist Physical - Constitutional Vitals: Temp Pulse Resp BP Pulse Ox 97.6 F 90 18 98/67 86 09/19/18 09:01 09/19/18 10:00 09/19/18 09:17 09/19/18 09:01 09/19/18 09:01 General appearance: Present: no acute distress, well-nourished, other (confused and nonverbal) - EENT Eyes: Present: PERRL, EOM intact - Neck Neck: Present: supple, normal ROM - Respiratory Respiratory effort: normal Respiratory: bilateral: diminished, rales, negative: rhonchi, wheezing - Cardiovascular Rhythm: regular Heart Sounds: Present: S1 & S2 - Extremities Extremities: no ischemia, No edema - Abdominal General gastrointestinal: soft, non-tender, non-distended, normal bowel sounds - Integumentary Integumentary: Present: clear, warm - Psychiatric Psychiatric: other (noncommunicative) - Neurologic Neurologic: other (noncommunicative and confused) Results - Labs CBC & Chem 7: 09/19/18 00:07 09/19/18 06:56 Labs: Laboratory Last Values WBC 14.1 K/mm3 (4.5-11.0) H 09/19/18 00:07 RBC 4.33 M/mm3 (3.65-5.03) 09/19/18 00:07 Hgb 13.4 gm/dl (11.8-15.2) 09/19/18 00:07 Hct 40.0 % (35.5-45.6) 09/19/18 00:07 MCV 92 fl (84-94) 09/19/18 00:07 MCH 31 pg (28-32) 09/19/18 00:07 MCHC 33 % (32-34) 09/19/18 00:07 RDW 13.1 % (13.2-15.2) L 09/19/18 00:07 Plt Count 359 K/mm3 (140-440) 09/19/18 00:07 Lymph % (Auto) Burlesque Dancer 09/19/18 00:07 Lymph # Burlesque Dancer 09/19/18 00:07 Add Manual Diff Complete 09/19/18 00:07 Total Counted 100 09/19/18 00:07 Seg Neutrophils % Burlesque Dancer 09/19/18 00:07 Seg Neuts % (Manual) 28.0 % (40.0-70.0) L 09/19/18 00:07 2.0 % 09/19/18 00:07 60.0 % (13.4-35.0) H 09/19/18 00:07 Reactive Lymphs % (Man) 6.0 % 09/19/18 00:07 3.0 % (0.0-7.3) 09/19/18 00:07 1.0 % (0.0-4.3) 09/19/18 00:07 0 % (0.0-1.8) 09/19/18 00:07 0 % 09/19/18 00:07 0 % 09/19/18 00:07 0 % 09/19/18 00:07 0 % 09/19/18 00:07 Nucleated RBC % Not Reportable 09/19/18 00:07 Seg Neutrophils # Man 3.9 K/mm3 (1.8-7.7) 09/19/18 00:07 Band Neutrophils # 0.3 K/mm3 09/19/18 00:07 8.5 K/mm3 (1.2-5.4) H 09/19/18 00:07 Abs React Lymphs (Man) 0.8 K/mm3 09/19/18 00:07 0.4 K/mm3 (0.0-0.8) 09/19/18 00:07 0.1 K/mm3 (0.0-0.4) 09/19/18 00:07 0.0 K/mm3 (0.0-0.1) 09/19/18 00:07 0.0 K/mm3 09/19/18 00:07 0.0 K/mm3 09/19/18 00:07 0.0 K/mm3 09/19/18 00:07 Blast Cells # 0.0 K/mm3 09/19/18 00:07 WBC Morphology Not Reportable 09/19/18 00:07 WBC Morphology TNR 09/19/18 00:07 Hypersegmented Neuts Not Reportable 09/19/18 00:07 Hyposegmented Neuts Not Reportable 09/19/18 00:07 Hypogranular Neuts Not Reportable 09/19/18 00:07 Not Reportable 09/19/18 00:07 Not Reportable 09/19/18 00:07 Not Reportable 09/19/18 00:07 Not Reportable 09/19/18 00:07 Not Reportable 09/19/18 00:07 Not Reportable 09/19/18 00:07 Consistent w auto 09/19/18 00:07 Not Reportable 09/19/18 00:07 Plt Clumps, EDTA Not Reportable 09/19/18 00:07 Not Reportable 09/19/18 00:07 Not Reportable 09/19/18 00:07 Not Reportable 09/19/18 00:07 Plt Morphology Comment Not Reportable 09/19/18 00:07 RBC Morphology Not Reportable 09/19/18 00:07 Dimorphic RBCs Not Reportable 09/19/18 00:07 Not Reportable 09/19/18 00:07 Not Reportable 09/19/18 00:07 Not Reportable 09/19/18 00:07 Not Reportable 09/19/18 00:07 Not Reportable 09/19/18 00:07 2+ 09/19/18 00:07 Not Reportable 09/19/18 00:07 Not Reportable 09/19/18 00:07 Not Reportable 09/19/18 00:07 Not Reportable 09/19/18 00:07 Not Reportable 09/19/18 00:07 Not Reportable 09/19/18 00:07 Not Reportable 09/19/18 00:07 Not Reportable 09/19/18 00:07 Not Reportable 09/19/18 00:07 Not Reportable 09/19/18 00:07 Not Reportable 09/19/18 00:07 Not Reportable 09/19/18 00:07 Not Reportable 09/19/18 00:07 Acanthocytes (Spur) Not Reportable 09/19/18 00:07 Rouleaux Not Reportable 09/19/18 00:07 Not Reportable 09/19/18 00:07 Not Reportable 09/19/18 00:07 Not Reportable 09/19/18 00:07 Not Reportable 09/19/18 00:07 Hem Pathologist Commnt No 09/19/18 00:07 POC ABG pH 7.400 (7.35-7.45) 09/15/18 10:45 POC ABG pCO2 48.8 (35-45) H 09/15/18 10:45 POC ABG pO2 95 (80-105) 09/15/18 10:45 POC ABG HCO3 30.2 (22-26 mml/L) 09/15/18 10:45 POC ABG Total CO2 32 (23-27mmol/L) 09/15/18 10:45 POC ABG O2 Sat 97 09/15/18 10:45 POC ABG Base Excess 5 ((-2) - (+3)mmol/L) 09/15/18 10:45 28 % 09/15/18 10:45 Sodium 141 mmol/L (137-145) 09/19/18 06:56 Potassium 3.8 mmol/L (3.6-5.0) 09/19/18 06:56 Chloride 101.9 mmol/L (98-107) 09/19/18 06:56 Carbon Dioxide 29 mmol/L (22-30) 09/19/18 06:56 14 mmol/L 09/19/18 06:56 BUN 13 mg/dL (9-20) 09/19/18 06:56 1.3 mg/dL (0.8-1.5) 09/19/18 06:56 Estimated GFR > 60 ml/min 09/19/18 06:56 10 % 09/19/18 06:56 Glucose 99 mg/dL (75-100) 09/19/18 06:56 POC Glucose 100 (70-105) 09/19/18 12:06 Calcium 8.9 mg/dL (8.4-10.2) 09/19/18 06:56 Phosphorus 2.90 mg/dL (2.5-4.5) 09/11/18 07:10 Magnesium 1.80 mg/dL (1.7-2.3) 09/11/18 07:10 0.30 mg/dL (0.1-1.2) 09/16/18 07:40 AST 46 units/L (5-40) H 09/16/18 07:40 ALT 30 units/L (7-56) 09/16/18 07:40 83 units/L (35-129) 09/16/18 07:40 109 units/L (55-170) 09/08/18 13:04 5.9 g/dL (6.3-8.2) L 09/16/18 07:40 2.8 g/dL (3.9-5) L 09/16/18 07:40 0.9 % 09/16/18 07:40 TSH 3.820 mlU/mL (0.270-4.200) 09/09/18 11:50 Free T4 1.22 ng/dL (0.76-1.46) 09/09/18 11:50 Yellow (Yellow) 09/08/18 15:20 Slightly-cloudy (Clear) 09/08/18 15:20 5.0 (5.0-7.0) 09/08/18 15:20 Ur Specific [place] 1.009 (1.003-1.030) 09/08/18 15:20 <15 mg/dl mg/dL (Negative) 09/08/18 15:20 Neg mg/dL (Negative) 09/08/18 15:20 Neg mg/dL (Negative) 09/08/18 15:20 Neg (Negative) 09/08/18 15:20 Neg (Negative) 09/08/18 15:20 Neg (Negative) 09/08/18 15:20 < 2.0 mg/dL (<2.0) 09/08/18 15:20 Ur Leukocyte Esterase Neg (Negative) 09/08/18 15:20 1.0 /HPF (0.0-6.0) 09/08/18 15:20 3.0 /HPF (0.0-6.0) 09/08/18 15:20 U Epithel Cells (Auto) < 1.0 /HPF (0-13.0) 09/08/18 15:20 Hyaline Casts 1 /LPF 09/08/18 15:20 Few /HPF 09/08/18 15:20 Presumptive negative 09/08/18 15:21 Presumptive negative 09/08/18 15:21 Ur Barbiturates Screen Presumptive negative 09/08/18 15:21 Ur Phencyclidine Scrn Presumptive negative 09/08/18 15:21 Ur Amphetamines Screen Presumptive negative 09/08/18 15:21 U Benzodiazepines Scrn Presumptive positive 09/08/18 15:21 Presumptive negative 09/08/18 15:21 U Marijuana (THC) Screen Presumptive negative 09/08/18 15:21 Disclamer 09/08/18 15:21 Plasma/Serum Alcohol < 0.01 % (0-0.07) 09/08/18 13:04 Flexitest 1 H 09/12/18 11:21 Active Medications - Current Medications Current Medications: Generic Name Dose Route Start Last Admin Trade Name Freq PRN Reason Stop Dose Admin Acetaminophen 650 mg 09/10/18 21:07 Tylenol FEEDTUBE Q6H PRN Fever >101, Mild Pain (1-3) Albuterol 2.5 mg 09/09/18 07:28 Proventil IH Q4HRT PRN Shortness Of Breath Albuterol/Ipratropium 1 ampul 09/18/18 14:00 09/19/18 08:46 Duoneb *Not For Prn Use* IH 1 ampul TIDRT BALDEMAR Administration Citalopram Hydrobromide 10 mg 09/18/18 18:00 09/19/18 10:16 Celexa PO 10 mg QDAY BALDEMAR Administration Enoxaparin Sodium 40 mg 09/09/18 22:00 09/18/18 21:17 Lovenox SUB-Q 40 mg QDAY@2200 BALDEMAR Administration Famotidine 20 mg 09/13/18 10:00 09/19/18 10:16 Pepcid PO 20 mg BID BALDEMAR Administration Folic Acid 1 mg 09/12/18 10:00 09/19/18 10:16 Folvite PO 1 mg QDAY BALDEMAR Administration Hydrophilic Ointment 1 applic 09/08/18 13:00 Vaseline Lip Therapy TP Q2HR PRN Dry Lips Lacosamide 200 mg 09/18/18 22:00 09/19/18 10:16 Vimpat PO 200 mg Q12HR BALDEMAR Administration Levetiracetam 1,500 mg 09/14/18 10:00 09/19/18 10:15 Keppra PO 1,500 mg BID BALDEMAR Administration Lorazepam 2 mg 09/15/18 03:22 09/16/18 16:01 Ativan IV 2 mg Q3H PRN Administration Agitation Memantine 10 mg 09/18/18 22:00 09/19/18 10:16 Namenda PO 10 mg BID BALDEMAR Administration Mirtazapine 7.5 mg 09/12/18 22:00 09/18/18 21:19 Remeron PO 7.5 mg QHS BALDEMAR Administration Multi-Ingred Cream/Lotion/Oil/Oint 1 applic 09/08/18 13:00 Artificial Tears Ophth Oint OU Q4HR PRN Dry Eye(s) Thiamine HCl 100 mg 09/12/18 10:00 09/19/18 10:16 Vitamin B-1 PO 100 mg QDAY BALDEMAR Administration Nutrition/Malnutrition Assess - Dietary Evaluation Nutrition/Malnutrition Findings: Nutrition Notes Start: 09/09/18 16:04 Freq: Status: Active Protocol: Document 09/14/18 15:26 RM (Rec: 09/14/18 15:30 RM [email or web address]) Nutrition Notes Initial or Follow up Reassessment Current Diagnosis Respiratory Failure Other Pertinent Diagnosis Dementia,Status epilepticus, pneu, Hx alcohol abuse, acute encephalopathy Current Diet TF - Osmolite 1.5 at 50ml/hr Labs/Tests Na 142 Pertinent Medications Reviewed Height 5 ft 8 in Weight 62.4 kg [place] Body Weight (kg) 70.00 BMI 20.9 Subjective/Other Information Pt remains on vent. Observed Osmolite 1.5 infusing at goal rate. Percent of energy/protein needs met: 96%/100% Burn Absent Trauma Absent #1 Nutrition Diagnosis Inadequate oral intake Diagnosis Progress(for reassessment Continues documentation) Is patient on ventilator? Yes Is Patient Ambulatory and/or Out of Bed No REE-([place]-confined to bed) 1642.080 Kcal/Kg value to use for calculation 30 Approximate Energy Requirements Using 1872 kcal/Kg Calculation Used for Recommendations Kcal/kg Additional Notes Pro needs 1.2-2g/k-126g/ day Fluid needs 1ml/kcal Nutrition Intervention Nutrition Support: Osmolite 1.5 at 50ml/hr witih 150ml water flush q4h. Kcal 1,800 Protein (gm) 75 Carbohydrates (gm) 244 Fat (gm) 59 Fluid (mL) 914 Goal #1 Continue to meet at least 80% of calorie and protein needs via TF Goal #2 Wt maintenance Anticipated Discharge Needs: Unable to determine at this time Follow-Up By: 09/22/18 Additional Comments Follow for TF tolerance
[2018-09-19] MEDS: REMERON PO SCH (22:38)
[2018-09-19] MEDS: LOVENOX SUB-Q SCH (22:39)
[2018-09-20] MEDS: DUONEB *Not for PRN Use IH SCH ×2 (07:27→13:19)
[2018-09-20] MEDS: KEPPRA PO SCH (10:34)
[2018-09-20] MEDS: FOLVITE PO SCH (10:35)
[2018-09-20] MEDS: PEPCID PO SCH (10:35)
[2018-09-20] MEDS: VITAMIN B-1 PO SCH (10:35)
[2018-09-20] MEDS: VIMPAT PO SCH (10:35)
[2018-09-20] MEDS: celeXA PO SCH (10:35)
--- NOTE | 2018-09-20 10:57 | Progress Note ---
Assessment and Plan Assessment and plan: --Acute respiratory failure Likely from status epilepticus Patient extubated on 09/15 Pulmonary note reviewed and appreciated Continue management per pulmonary recommendations Nebulizer and supplemental O2 as needed --status post status epilepticus with h/o seizure disorder Continue Tho, neurology consulted, EEG ordered --Possible MSSA tracheobronchitis v/s colonization: CXR without consolidations Off antibiotic ID note reviewed Blood cultures negative --SIRS, Likely reactive secondary to seizures WBC count Trending down, no solid infectious etiology Off antibiotic --Acute on chronic encephalopathy - Still appears confused and intermittently requiring restraint, - Likely from status epilepticus and underlying alcoholic dementia - resumed home meds for dementia, if no improvement will do psych consult --Alcoholic dementia - Supportive care, resumed home meds for dementia --Status post fall with head trauma - Due to seizure, supportive care --Hypokalemia, repleted --Urinary Retention, Prasad in place, which was removed, then re-inserted on 09/10/18 (i believe) for urinary retention --DVT prophylaxis, Lovenox Disposition: Patient off restrains History Interval history: Patient seen and examined medical records reviewed Patient feels slightly better no new complaints Vital signs noted Hospitalist Physical - Constitutional Vitals: Temp Pulse Resp BP Pulse Ox 98 F 94 H 18 106/73 96 09/20/18 08:00 09/20/18 08:00 09/20/18 08:00 09/20/18 08:00 09/20/18 08:00 General appearance: Present: no acute distress, well-nourished, other (confused and nonverbal) - EENT Eyes: Present: PERRL, EOM intact - Neck Neck: Present: supple, normal ROM - Respiratory Respiratory effort: normal Respiratory: bilateral: diminished, negative: rales, rhonchi, wheezing - Cardiovascular Rhythm: regular Heart Sounds: Present: S1 & S2 - Extremities Extremities: no ischemia, No edema - Abdominal General gastrointestinal: soft, non-tender, non-distended, normal bowel sounds - Integumentary Integumentary: Present: clear, warm - Psychiatric Psychiatric: appropriate mood/affect, cooperative - Neurologic Neurologic: CNII-XII intact, moves all extremities Results - Labs CBC & Chem 7: 09/19/18 00:07 09/19/18 06:56 Labs: Laboratory Last Values WBC 14.1 K/mm3 (4.5-11.0) H 09/19/18 00:07 RBC 4.33 M/mm3 (3.65-5.03) 09/19/18 00:07 Hgb 13.4 gm/dl (11.8-15.2) 09/19/18 00:07 Hct 40.0 % (35.5-45.6) 09/19/18 00:07 MCV 92 fl (84-94) 09/19/18 00:07 MCH 31 pg (28-32) 09/19/18 00:07 MCHC 33 % (32-34) 09/19/18 00:07 RDW 13.1 % (13.2-15.2) L 09/19/18 00:07 Plt Count 359 K/mm3 (140-440) 09/19/18 00:07 Lymph % (Auto) Dictaphone Mechanic 09/19/18 00:07 Lymph # Dictaphone Mechanic 09/19/18 00:07 Add Manual Diff Complete 09/19/18 00:07 Total Counted 100 09/19/18 00:07 Seg Neutrophils % Dict[employer]one Mechanic 09/19/18 00:07 Seg Neuts % (Manual) 28.0 % (40.0-70.0) L 09/19/18 00:07 2.0 % 09/19/18 00:07 60.0 % (13.4-35.0) H 09/19/18 00:07 Reactive Lymphs % (Man) 6.0 % 09/19/18 00:07 3.0 % (0.0-7.3) 09/19/18 00:07 1.0 % (0.0-4.3) 09/19/18 00:07 0 % (0.0-1.8) 09/19/18 00:07 0 % 09/19/18 00:07 0 % 09/19/18 00:07 0 % 09/19/18 00:07 0 % 09/19/18 00:07 Nucleated RBC % Not Reportable 09/19/18 00:07 Seg Neutrophils # Man 3.9 K/mm3 (1.8-7.7) 09/19/18 00:07 Band Neutrophils # 0.3 K/mm3 09/19/18 00:07 8.5 K/mm3 (1.2-5.4) H 09/19/18 00:07 Abs React Lymphs (Man) 0.8 K/mm3 09/19/18 00:07 0.4 K/mm3 (0.0-0.8) 09/19/18 00:07 0.1 K/mm3 (0.0-0.4) 09/19/18 00:07 0.0 K/mm3 (0.0-0.1) 09/19/18 00:07 0.0 K/mm3 09/19/18 00:07 0.0 K/mm3 09/19/18 00:07 0.0 K/mm3 09/19/18 00:07 Blast Cells # 0.0 K/mm3 09/19/18 00:07 WBC Morphology Not Reportable 09/19/18 00:07 WBC Morphology TNR 09/19/18 00:07 Hypersegmented Neuts Not Reportable 09/19/18 00:07 Hyposegmented Neuts Not Reportable 09/19/18 00:07 Hypogranular Neuts Not Reportable 09/19/18 00:07 Not Reportable 09/19/18 00:07 Not Reportable 09/19/18 00:07 Not Reportable 09/19/18 00:07 Not Reportable 09/19/18 00:07 Not Reportable 09/19/18 00:07 Not Reportable 09/19/18 00:07 Consistent w auto 09/19/18 00:07 Not Reportable 09/19/18 00:07 Plt Clumps, EDTA Not Reportable 09/19/18 00:07 Not Reportable 09/19/18 00:07 Not Reportable 09/19/18 00:07 Not Reportable 09/19/18 00:07 Plt Morphology Comment Not Reportable 09/19/18 00:07 RBC Morphology Not Reportable 09/19/18 00:07 Dimorphic RBCs Not Reportable 09/19/18 00:07 Not Reportable 09/19/18 00:07 Not Reportable 09/19/18 00:07 Not Reportable 09/19/18 00:07 Not Reportable 09/19/18 00:07 Not Reportable 09/19/18 00:07 2+ 09/19/18 00:07 Not Reportable 09/19/18 00:07 Not Reportable 09/19/18 00:07 Not Reportable 09/19/18 00:07 Not Reportable 09/19/18 00:07 Not Reportable 09/19/18 00:07 Not Reportable 09/19/18 00:07 Not Reportable 09/19/18 00:07 Not Reportable 09/19/18 00:07 Not Reportable 09/19/18 00:07 Not Reportable 09/19/18 00:07 Not Reportable 09/19/18 00:07 Not Reportable 09/19/18 00:07 Not Reportable 09/19/18 00:07 Acanthocytes (Spur) Not Reportable 09/19/18 00:07 Rouleaux Not Reportable 09/19/18 00:07 Not Reportable 09/19/18 00:07 Not Reportable 09/19/18 00:07 Not Reportable 09/19/18 00:07 Not Reportable 09/19/18 00:07 Hem Pathologist Commnt No 09/19/18 00:07 POC ABG pH 7.400 (7.35-7.45) 09/15/18 10:45 POC ABG pCO2 48.8 (35-45) H 09/15/18 10:45 POC ABG pO2 95 (80-105) 09/15/18 10:45 POC ABG HCO3 30.2 (22-26 mml/L) 09/15/18 10:45 POC ABG Total CO2 32 (23-27mmol/L) 09/15/18 10:45 POC ABG O2 Sat 97 09/15/18 10:45 POC ABG Base Excess 5 ((-2) - (+3)mmol/L) 09/15/18 10:45 28 % 09/15/18 10:45 Sodium 141 mmol/L (137-145) 09/19/18 06:56 Potassium 3.8 mmol/L (3.6-5.0) 09/19/18 06:56 Chloride 101.9 mmol/L (98-107) 09/19/18 06:56 Carbon Dioxide 29 mmol/L (22-30) 09/19/18 06:56 14 mmol/L 09/19/18 06:56 BUN 13 mg/dL (9-20) 09/19/18 06:56 1.3 mg/dL (0.8-1.5) 09/19/18 06:56 Estimated GFR > 60 ml/min 09/19/18 06:56 10 % 09/19/18 06:56 Glucose 99 mg/dL (75-100) 09/19/18 06:56 POC Glucose 99 (70-105) 09/20/18 06:36 Calcium 8.9 mg/dL (8.4-10.2) 09/19/18 06:56 Phosphorus 2.90 mg/dL (2.5-4.5) 09/11/18 07:10 Magnesium 1.80 mg/dL (1.7-2.3) 09/11/18 07:10 0.30 mg/dL (0.1-1.2) 09/16/18 07:40 AST 46 units/L (5-40) H 09/16/18 07:40 ALT 30 units/L (7-56) 09/16/18 07:40 83 units/L (35-129) 09/16/18 07:40 109 units/L (55-170) 09/08/18 13:04 5.9 g/dL (6.3-8.2) L 09/16/18 07:40 2.8 g/dL (3.9-5) L 09/16/18 07:40 0.9 % 09/16/18 07:40 TSH 3.820 mlU/mL (0.270-4.200) 09/09/18 11:50 Free T4 1.22 ng/dL (0.76-1.46) 09/09/18 11:50 Yellow (Yellow) 09/08/18 15:20 Slightly-cloudy (Clear) 09/08/18 15:20 5.0 (5.0-7.0) 09/08/18 15:20 Ur Specific [place] 1.009 (1.003-1.030) 09/08/18 15:20 <15 mg/dl mg/dL (Negative) 09/08/18 15:20 Neg mg/dL (Negative) 09/08/18 15:20 Neg mg/dL (Negative) 09/08/18 15:20 Neg (Negative) 09/08/18 15:20 Neg (Negative) 09/08/18 15:20 Neg (Negative) 09/08/18 15:20 < 2.0 mg/dL (<2.0) 09/08/18 15:20 Ur Leukocyte Esterase Neg (Negative) 09/08/18 15:20 1.0 /HPF (0.0-6.0) 09/08/18 15:20 3.0 /HPF (0.0-6.0) 09/08/18 15:20 U Epithel Cells (Auto) < 1.0 /HPF (0-13.0) 09/08/18 15:20 Hyaline Casts 1 /LPF 09/08/18 15:20 Few /HPF 09/08/18 15:20 Presumptive negative 09/08/18 15:21 Presumptive negative 09/08/18 15:21 Ur Barbiturates Screen Presumptive negative 09/08/18 15:21 Ur Phencyclidine Scrn Presumptive negative 09/08/18 15:21 Ur Amphetamines Screen Presumptive negative 09/08/18 15:21 U Benzodiazepines Scrn Presumptive positive 09/08/18 15:21 Presumptive negative 09/08/18 15:21 U Marijuana (THC) Screen Presumptive negative 09/08/18 15:21 Disclamer 09/08/18 15:21 Plasma/Serum Alcohol < 0.01 % (0-0.07) 09/08/18 13:04 Flexitest 1 H 09/12/18 11:21 Active Medications - Current Medications Current Medications: Generic Name Dose Route Start Last Admin Trade Name Freq PRN Reason Stop Dose Admin Acetaminophen 650 mg 09/10/18 21:07 Tylenol FEEDTUBE Q6H PRN Fever >101, Mild Pain (1-3) Albuterol 2.5 mg 09/09/18 07:28 Proventil IH Q4HRT PRN Shortness Of Breath Albuterol/Ipratropium 1 ampul 09/18/18 14:00 09/20/18 07:27 Duoneb *Not For Prn Use* IH 1 ampul TIDRT BALDEMAR Administration Citalopram Hydrobromide 10 mg 09/18/18 18:00 09/20/18 10:35 Celexa PO 10 mg QDAY BALDEMAR Administration Enoxaparin Sodium 40 mg 09/09/18 22:00 09/19/18 22:39 Lovenox SUB-Q 40 mg QDAY@2200 BALDEMAR Administration Famotidine 20 mg 09/13/18 10:00 09/20/18 10:35 Pepcid PO 20 mg BID BALDEMAR Administration Folic Acid 1 mg 09/12/18 10:00 09/20/18 10:35 Folvite PO 1 mg QDAY BALDEMAR Administration Hydrophilic Ointment 1 applic 09/08/18 13:00 Vaseline Lip Therapy TP Q2HR PRN Dry Lips Lacosamide 200 mg 09/18/18 22:00 09/20/18 10:35 Vimpat PO 200 mg Q12HR BALDEMAR Administration Levetiracetam 1,500 mg 09/14/18 10:00 09/20/18 10:34 Keppra PO 1,500 mg BID BALDEMAR Administration Lorazepam 2 mg 09/15/18 03:22 09/16/18 16:01 Ativan IV 2 mg Q3H PRN Administration Agitation Memantine 10 mg 09/18/18 22:00 09/19/18 23:31 Namenda PO 10 mg BID BALDEMAR Administration Mirtazapine 7.5 mg 09/12/18 22:00 09/19/18 22:38 Remeron PO 7.5 mg QHS BALDEMAR Administration Multi-Ingred Cream/Lotion/Oil/Oint 1 applic 09/08/18 13:00 Artificial Tears Ophth Oint OU Q4HR PRN Dry Eye(s) Thiamine HCl 100 mg 09/12/18 10:00 09/20/18 10:35 Vitamin B-1 PO 100 mg QDAY BALDEMAR Administration Nutrition/Malnutrition Assess - Dietary Evaluation Nutrition/Malnutrition Findings: Nutrition Notes Start: 09/09/18 16:04 Freq: Status: Active Protocol: Document 09/14/18 15:26 RM (Rec: 09/14/18 15:30 RM [id number]) Nutrition Notes Initial or Follow up Reassessment Current Diagnosis Respiratory Failure Other Pertinent Diagnosis Dementia,Status epilepticus, pneu, Hx alcohol abuse, acute encephalopathy Current Diet TF - Osmolite 1.5 at 50ml/hr Labs/Tests Na 142 Pertinent Medications Reviewed Height 5 ft 8 in Weight 62.4 kg [place] Body Weight (kg) 70.00 BMI 20.9 Subjective/Other Information Pt remains on vent. Observed Osmolite 1.5 infusing at goal rate. Percent of energy/protein needs met: 96%/100% Burn Absent Trauma Absent #1 Nutrition Diagnosis Inadequate oral intake Diagnosis Progress(for reassessment Continues documentation) Is patient on ventilator? Yes Is Patient Ambulatory and/or Out of Bed No REE-([place]-St. Jeor-confined to bed) 1642.080 Kcal/Kg value to use for calculation 30 Approximate Energy Requirements Using 1872 kcal/Kg Calculation Used for Recommendations Kcal/kg Additional Notes Pro needs 1.2-2g/k-126g/ day Fluid needs 1ml/kcal Nutrition Intervention Nutrition Support: Osmolite 1.5 at 50ml/hr witih 150ml water flush q4h. Kcal 1,800 Protein (gm) 75 Carbohydrates (gm) 244 Fat (gm) 59 Fluid (mL) 914 Goal #1 Continue to meet at least 80% of calorie and protein needs via TF Goal #2 Wt maintenance Anticipated Discharge Needs: Unable to determine at this time Follow-Up By: 09/22/18 Additional Comments Follow for TF tolerance
--- NOTE | 2018-09-20 11:44 | Discharge Summary ---
Providers - Providers Date of Admission: 09/08/18 17:07 Date of discharge: 09/20/18 Attending physician: BRIE KEITH 09/08/18 13:00 Consult to Dietitian/Nutrition [CONS] Routine Physician Instructions: Reason For Exam: Reason for Consult: Evaluate nutritional intake 09/09/18 13:07 Consult to PICC Line RN [CONS] Urgent Reason For Exam: Compromised vascular access Type Line:: PICC 09/10/18 08:06 Consult to Physician [CONS] Routine Comment: Consulting Provider: JERAD SEPULVEDA Physician Instructions: Reason For Exam: seizures 09/10/18 08:08 Consult to Physician [CONS] Routine Comment: Consulting Provider: KENN BOYD Physician Instructions: Reason For Exam: MRSA 09/15/18 16:47 Speech Therapy Evaluation and Treat [CONS] Routine Reason For Exam: swallow evaluation post extubation 09/18/18 11:04 Physical Therapy Evaluation and Treat [CONS] Routine Comment: Reason For Exam: placement 09/19/18 17:15 Consult to Wound/ET Nurse [CONS] Routine Reason For Exam: wound eval:sacral decub Primary care physician: PAOLA AGUILAR Hospitalization Reason for admission: seizure and fall Condition: Fair Pertinent studies: CT head wo contrast IMPRESSION: No acute intracranial abnormality. No change. CXR IMPRESSION: Slight atelectasis and mild effusion left lower lung. CT cervical spine wo contrast IMPRESSION: 1. No evidence of fracture or subluxation. 2. Cervical spondylosis with multiple level canal and foraminal stenosis. If further imaging is required, MRI may be helpful. 3. Pulmonary emphysema. Hospital course: Patient is a 67 yo man from [facility] with a history of Advance Dementia, COPD, Anxiety disorder, Seizure disorder due to prior ETOH abuse, gout and CKD 3 who presented to [facility] ED after seizure and fall resulting in patient hitting his head on the floor causing laceration followed by agitation. There is report of him being non-compliant with meds at the [place]. He was combative en route to hospital and EMS gave him Versed. He was sedaged and unresponsive with pulse ox of only 85% on Nonrebreather 100% O2 mask. He was subsequently intubated by Dr. Clemente and admitted to the ICU. Patient was extubated on 09.09.18 around 8pm but had to be re-intubated around 9:30pm. It appears patient may had a mucus plug. Also, once sedation stopped the seizure continued. EEG ordered. Staph aureus growing out trach culture, started IV Vancomycin 09/10/18. EEG and neurology evaluated Discharge diagnosis; --Acute respiratory failure; requiring intubation Patient extubated on 09/15 Nebulizer and supplemental O2 as needed [place] evaluated --status post status epilepticus with h/o seizure disorder Continue Keppra, neurology consulted, EEG ordered --Possible MSSA tracheobronchitis v/s colonization: CXR without consolidations,Off antibiotic ID evaluated, Blood cultures negative --SIRS, Likely reactive secondary to seizures Off antibiotic --Acute on chronic encephalopathy confused and intermittently requiring restraint, status epilepticus and underlying alcoholic dementia --Alcoholic dementia - Supportive care, resumed home meds for dementia --Status post fall with head trauma -- Hypokalemia, repleted --Urinary Retention, Prasad in place, which was removed, then re-inserted on 09/10/18 for urinary retention --DVT prophylaxis, Lovenox Stable at discharge and transfer to SNF Disposition: DC/[place]-03 SNF W [facility] Time spent for discharge: 33 min Core Measure Documentation - Palliative Care Palliative Care/ Comfort Measures: Not Applicable - Core Measures Any of the following diagnoses?: none Exam - Constitutional Vitals: Temp Pulse Resp BP Pulse Ox 98 F 94 H 18 106/73 96 09/20/18 08:00 09/20/18 08:00 09/20/18 08:00 09/20/18 08:00 09/20/18 08:00 General appearance: Present: no acute distress, well-nourished - EENT Eyes: Present: PERRL, EOM intact - Neck Neck: Present: supple, normal ROM - Respiratory Respiratory effort: normal Respiratory: bilateral: diminished, negative: rales, rhonchi, wheezing - Cardiovascular Rhythm: regular Heart Sounds: Present: S1 & S2 - Extremities Extremities: no ischemia, No edema - Abdominal General gastrointestinal: Present: soft, non-tender, non-distended, normal bowel sounds - Integumentary Integumentary: Present: clear, warm - Musculoskeletal Musculoskeletal: strength equal bilaterally - Psychiatric Psychiatric: appropriate mood/affect, cooperative - Neurologic Neurologic: moves all extremities Plan Activity: advance as tolerated, fall precautions, other (seizure precautions) Diet: regular Special Instructions: physical therapy Additional Instructions: Seizure precautions. Fall precautions Follow up with: LAUREN GUEVARA [Other] - 3-5 Days
[2018-09-20 13:28] VITALS: BP 113/79
== END 2018-09-20 15:55 | DRG 207 ==
LOC: ED 12:27 → CC1 17:07 → 4A 09-17 16:01 → 2B-ACE 09-19 17:57
PROVIDERS: ADMIT Internal Medicine; ATTEND Internal Medicine
PROC: 5A1945Z Respiratory Ventilation, 24-96 Consecutive Hours (ICD-10-PCS; 2018-09-08)
PROC: 0BH17EZ Insertion of Endotracheal Airway into Trachea, Via Natural or Artificial Opening (ICD-10-PCS; 2018-09-08)
PROC: 0BH17EZ Insertion of Endotracheal Airway into Trachea, Via Natural or Artificial Opening (ICD-10-PCS; principal; 2018-09-09)
PROC: 02HV33Z Insertion of Infusion Device into Superior Vena Cava, Percutaneous Approach (ICD-10-PCS; 2018-09-09)
PROC: 4A033R1 Measurement of Arterial Saturation, Peripheral, Percutaneous Approach (ICD-10-PCS; 2018-09-09)
PROC: 5A1955Z Respiratory Ventilation, Greater than 96 Consecutive Hours (ICD-10-PCS; 2018-09-10)
DX: J96.01 Acute respiratory failure with hypoxia (principal); R65.11 Systemic inflammatory response syndrome (SIRS) of non-infectious origin with acute organ dysfunction; J15.211 Pneumonia due to Methicillin susceptible Staphylococcus aureus; E87.2 Acidosis; G40.501 Epileptic seizures related to external causes, not intractable, with status epilepticus; S01.81XA Laceration without foreign body of other part of head, initial encounter; N18.3 Chronic kidney disease, stage 3 (moderate); M10.9 Gout, unspecified; E87.6 Hypokalemia; R33.9 Retention of urine, unspecified; F10.97 Alcohol use, unspecified with alcohol-induced persisting dementia; Y90.9 Presence of alcohol in blood, level not specified; W18.39XA Other fall on same level, initial encounter; Y93.89 Activity, other specified; Y92.128 Other place in nursing home as the place of occurrence of the external cause; Y99.8 Other external cause status
CPT/HCPCS: 31500; 36415; 36600; 70450; 71045; 72125; 74018; 80048; 80053; 80307; 80320; 81001; 82550; 82803; 82962; 83735; 84100; 84439; 84443; 85007; 85025; 85027; 87040; 87070; 87076; 87186; 87205; 93005; 93010; 94002; 94003; 94640; 94760; 95819; 96365; G0378; G0480; J0690; J0696; J1200; J1630; J1650; J1953; J2060; J2250; J2704; J3010; J3370; J3475; J3480; J7030; J7050; J7070

== ENCOUNTER 2018-09-27 15:09 | Emergency (ER) | payer MEDICARE ==
[2018-09-27] MEDS ORDERED: NACL 0.9% 1000 ML 1,000 ML IV ONE (17:27)
--- NOTE | 2018-09-27 17:32 | Emergency Department Report ---
HPI - General Chief Complaint: Wound/Laceration Time Seen by Provider: 09/27/18 17:20 - HPI HPI: Room 8 The patient is 67-year-old male presenting with chief complaint of head injury. The patient was sent from [facility] after he reportedly fell in the dining room floor causing a laceration over his left eyebrow. Steri-Strips were placed prior to his transport to the ED. 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.) Hx COPD: Yes Hx Dementia: Yes (Alzheimer's) - Family History Family history: no significant - Social History Smoking Status: Unknown if ever smoked - Medications Home Medications: Home Medications Medication Instructions Recorded Confirmed Last Taken Type Citalopram [celeXA] 10 mg PO QDAY #30 tablet 06/28/15 09/08/18 Unknown Rx Folic Acid [Folvite] 1 mg PO QDAY #30 tablet 06/28/15 09/08/18 Unknown Rx Thiamine [Vitamin B-1] 100 mg PO QDAY #30 tablet 06/28/15 09/08/18 Unknown Rx Lacosamide [Vimpat] 200 mg PO Q12H 09/08/18 09/08/18 Unknown History Memantine HCl [Namenda] 10 mg PO QAM&QHS 09/08/18 09/08/18 Unknown History ALBUTEROL NEB's [Proventil 0.083% 2.5 mg IH Q4HRT PRN nebu 09/20/18 Unknown Rx NEBS] levETIRAcetam [Keppra] 1,500 mg PO BID oral.liqd 09/20/18 Unknown Rx HYDROcodone/APAP 5-325 [[place] 1 each PO Q6HR PRN #10 tablet 09/27/18 Unknown Rx 5/325] ED Review of Systems ROS: Stated complaint: GLF/LEFT EYEBROW LACERATION Other details as noted in HPI Comment: Unobtainable due to pts medical conditions Physical Exam - Physical Exam Vital Signs: Vital Signs 09/27/18 17:11 Temperature 98 F Pulse Rate 75 Respiratory 18 Rate Blood Pressure 60/49 O2 Sat by Pulse 100 Oximetry Physical Exam: GENERAL: The patient is well-developed well-nourished male lying on stretcher not appearing to be in acute distress. [] HEENT: Normocephalic. Steri-Strips in place over left eyebrow. Extraocular motions are intact. Patient has moist mucous membranes. NECK: Supple. No axial tenderness to palpation CHEST/LUNGS: Clear to auscultation. There is no respiratory distress noted. HEART/CARDIOVASCULAR: Regular. There is no tachycardia. There is no gallop rub or murmur. ABDOMEN: Abdomen is soft, nontender. Patient has normal bowel sounds. There is no abdominal distention. SKIN: There is no rash. There is no edema. There is no diaphoresis. NEURO: The patient is awake and alert. The patient is cooperative. The patient has normal speech MUSCULOSKELETAL: There is no evidence of acute injury. ED Course Vital Signs 09/27/18 17:11 Temperature 98 F Pulse Rate 75 Respiratory 18 Rate Blood Pressure 60/49 O2 Sat by Pulse 100 Oximetry - Laceration /Wound Repair Left Face Wound Location: face Wound Length (cm): 3 Wound's Depth, Shape: linear Wound Explored: clean Betadine Prep?: Yes Anesthesia: Lidocaine w/ Epi Volume Anesthetic (ccs): 4 Wound Repaired With: sutures Suture Size/Type: 5:0, proline Number of Sutures: 6 Layer Closure?: No Sterile Dressing Applied?: Yes ED Medical Decision Making - Lab Data Result diagrams: 09/27/18 17:43 09/27/18 17:43 Laboratory Tests 09/27/18 09/27/18 09/27/18 17:43 17:43 17:43 WBC 12.2 H RBC 4.06 Hgb 12.3 Hct 36.8 MCV 91 MCH 30 MCHC 33 RDW 12.8 L Lymph # Web Marketing Strategist WBC Morphology PT 14.6 INR 1.17 H APTT 20.0 L Sodium 136 L Potassium 3.9 Chloride 101.2 Carbon Dioxide 22 Anion Gap 17 BUN 14 Creatinine 1.3 Estimated GFR > 60 BUN/Creatinine Ratio 11 Glucose 88 Calcium 8.7 Total Bilirubin 0.20 AST 19 ALT 22 Alkaline Phosphatase 70 Total Creatine Kinase 44 L CK-MB (CK-2) < 1.0 CK-MB (CK-2) Rel Index 2.2 Troponin T < 0.010 Total Protein 6.8 Albumin 3.4 L Albumin/Globulin Ratio 1.0 Urine Color Urine Turbidity Urine pH Ur Specific [place] Urine Protein Urine Glucose (UA) Urine Ketones Urine Blood Urine Nitrite Urine Bilirubin Urine Urobilinogen Ur Leukocyte Esterase Urine WBC (Auto) Urine RBC (Auto) U Epithel Cells (Auto) 09/27/18 09/27/18 17:43 18:30 WBC RBC Hgb Hct MCV MCH MCHC RDW Lymph # WBC Morphology TNR PT INR APTT Sodium Potassium Chloride Carbon Dioxide Anion Gap BUN Creatinine Estimated GFR BUN/Creatinine Ratio Glucose Calcium Total Bilirubin AST ALT Alkaline Phosphatase Total Creatine Kinase CK-MB (CK-2) CK-MB (CK-2) Rel Index Troponin T Total Protein Albumin Albumin/Globulin Ratio Urine Color Yellow Urine Turbidity Clear Urine pH 5.0 Ur Specific [place] 1.014 Urine Protein <15 mg/dl Urine Glucose (UA) Neg Urine Ketones Tr Urine Blood Neg Urine Nitrite Neg Urine Bilirubin Neg Urine Urobilinogen < 2.0 Ur Leukocyte Esterase Neg Urine WBC (Auto) 1.0 Urine RBC (Auto) 4.0 U Epithel Cells (Auto) < 1.0 - Radiology Data Radiology results: report reviewed (CT head, CT cervical spine), image reviewed (CT head, CT cervical spine) [address] [address] Cat Scan Report Signed Patient: ROSE MOE MR#: [id number] [birth year] : 1950 Acct:[id number] Age/Sex: 67 / M ADM Date: 09/27/18 Loc: ED Attending Dr: Ordering Physician: KERI URIAS MD Date of Service: 09/27/18 Procedure(s): CT head/brain wo con Accession Number(s): [id number] cc: KERI URIAS MD PROCEDURE: CT HEAD/BRAIN WO CON TECHNIQUE: Computerized tomography of the head was performed without contrast material. CT DOSE LENGTH PRODUCT: 920.5 mGycm HISTORY: fall, head injury COMPARISONS: September 08, 2018 FINDINGS: Skull and scalp: Normal . Paranasal sinuses: Normal . Ventricles and subarachnoid spaces: Normal . Cerebrum: No evidence of hemorrhage, acute infarction or mass . There is a small right lacunar infarct at the caudate head. Cerebellum and brainstem: No evidence of hemorrhage, acute infarction or mass . There is some generalized parenchymal volume loss which is stable from prior exam IMPRESSION: Generalized parenchymal volume loss Remote right caudate lacunar infarct Overall no significant acute abnormality identified This document is electronically signed by Trevin Sorenson MD., September 27 2018 07:59:47 PM ET Transcribed By: [facility] Dictated By: ELINA SORENSON MD Electronically Authenticated By: ELINA SORENSON MD Signed Date/Time: 09/27/182000 DD/ 48 TD/TT: 09/27/181948 [facility] [address] [place] [address] Cat Scan Report Signed Patient: ROSE MOE MR#: [id number] 1 : 1950 Acct:[id number] Age/Sex: 67 / M ADM Date: 09/27/18 Loc: ED Attending Dr: Ordering Physician: KERI URIAS MD Date of Service: 09/27/18 Procedure(s): CT cervical spine wo con Accession Number(s): [id number] cc: KERI URIAS MD PROCEDURE: CT CERVICAL SPINE WO CON TECHNIQUE: Computerized tomography of the cervical spine was performed from the skull base to T1 without contrast material. CT DOSE LENGTH PRODUCT: 432.8 mGycm HISTORY: fall, head injury COMPARISONS: 09/08/2018 . FINDINGS: Vertebral body heights and alignment are maintained. There are multilevel degenerative disc changes, with disc space narrowing and osteophyte formation. No acute fracture or subluxation is se en. IMPRESSION: No acute fracture or subluxation is seen . This document is electronically signed by Sofi Lino MD., September 27 2018 08:52:56 PM ET Transcribed By: [facility] Dictated By: SOFI LINO M.D. Electronically Authenticated By: SOFI LINO M.D. Signed Date/Time: 09/27/182053 DD/ 55 TD/TT: 09/27/181955 - Differential Diagnosis closed head injury, facial laceration, ICH, skull fracture Critical care attestation.: If time is entered above; I have spent that time in minutes in the direct care of this critically ill patient, excluding procedure time. ED Disposition Clinical Impression: Closed head injury, Facial laceration Disposition: DC-01 TO HOME OR SELFCARE Is pt being admited?: No Does the pt Need Aspirin: No Condition: Stable Instructions: Laceration (ED), Suture Care (ED) Additional Instructions: Your sutures need to be removed in 3-5 days. Return to the emergency department immediately should you develop worsening symptoms, fever, inability to tolerate food or liquid or any other concerns. Prescriptions: HYDROcodone/APAP 5-325 [[place] 5/325] 1 each PO Q6HR PRN #10 tablet PRN Reason: Pain Referrals: LEEROY BRISENO MD [Primary Care Provider] - 3-5 Days Time of Disposition: 21:03
[2018-09-27 18:28] LABS: Hematocrit 36.8 % (35.5-45.6); Hemoglobin 12.3 gm/dl (11.8-15.2); Mean Corpuscular HGB Conc 33 % (32-34); Mean Corpuscular Volume 91 fl (84-94); Red Blood Count 4.06 M/mm3 (3.65-5.03); Red Cell Distribution Width 12.8 % (13.2-15.2)
[2018-09-27 18:52] LABS: INR 1.17 (0.87-1.13)
[2018-09-27 18:55] LABS: Bilirubin,Urine NEG (Negative); Blood,Urine NEG (Negative); Color,Urine Yellow (Yellow); Protein,Urine <15 mg/dL mg/dL (Negative); Urobilinogen,Urine < 2.0 mg/dL (<2.0)
[2018-09-27 18:57] LABS: Alanine Aminotransferase 22 units/L (7-56); Albumin 3.4 g/dL (3.9-5); BUN/Creatinine Ratio 11; Blood Urea Nitrogen 14 mg/dL (9-20); Calcium 8.7 mg/dL (8.4-10.2); Hemolysis Index 13
[2018-09-27 18:59] LABS: Creatine Kinase MB < 1.0 ng/mL (0.0-4.0)
[2018-09-27] MEDS ORDERED: NACL 0.9% 500 ML IR ONE (19:52)
[2018-09-27] MEDS ORDERED: XYLOCAINE 1%/ EPI 1:100,000 INFILTRATI ONE (19:52)
--- NOTE | 2018-09-27 20:01 | Cat Scan Report ---
PROCEDURE: CT HEAD/BRAIN WO CON TECHNIQUE: Computerized tomography of the head was performed without contrast material. CT DOSE LENGTH PRODUCT: 920.5 mGycm HISTORY: fall, head injury COMPARISONS: September 08, 2018 FINDINGS: Skull and scalp: Normal . Paranasal sinuses: Normal . Ventricles and subarachnoid spaces: Normal . Cerebrum: No evidence of hemorrhage, acute infarction or mass . There is a small right lacunar infar ct at the caudate head. Cerebellum and brainstem: No evidence of hemorrhage, acute infarction or mass . There is some generalized parenchymal volume loss which is stable from prior exam IMPRESSION: Generalized parenchymal volume loss Remote right caudate lacunar infarct Overall no significant acute abnormality identified This document is electronically signed by Trevin Salmon MD., September 27 2018 07:59:47 PM ET
--- NOTE | 2018-09-27 20:54 | Cat Scan Report ---
PROCEDURE: CT CERVICAL SPINE WO CON TECHNIQUE: Computerized tomography of the cervical spine was performed from the skull base to T1 wit hout contrast material. CT DOSE LENGTH PRODUCT: 432.8 mGycm HISTORY: fall, head injury COMPARISONS: 09/08/2018 . FINDINGS: Vertebral body heights and alignment are maintained. There are multilevel degenerative disc changes, with disc space narrowing and osteophyte formation. No acute fracture or subluxation is seen. IMPRESSION: No acute fracture or subluxation is seen . This document is electronically signed by Sofi Lino MD., September 27 2018 08:52:56 PM ET
[2018-09-27 23:22] VITALS: BP 109/61
[2018-09-28 01:56] LABS: Basophils % (Manual) 0 % (0.0-1.8); Eosinophils % (Manual) 0 % (0.0-4.3); Platelet Estimate Consistent w Auto; RBC Morphology Normal; Total Cells Counted 100
[2018-09-28 03:29] LABS: Platelet Count 276 K/mm3 (140-440)
== END 2018-09-27 23:23 | disposition home or self-care (01) ==
LOC: ED 15:09
DX: S01.112A Laceration without foreign body of left eyelid and periocular area, initial encounter (principal); M10.9 Gout, unspecified; F44.5 Conversion disorder with seizures or convulsions; J44.9 Chronic obstructive pulmonary disease, unspecified; G30.9 Alzheimer's disease, unspecified; F02.80 Dementia in other diseases classified elsewhere, unspecified severity, without behavioral disturbance, psychotic disturbance, mood disturbance, and anxiety; Z79.899 Other long term (current) drug therapy; W01.198A Fall on same level from slipping, tripping and stumbling with subsequent striking against other object, initial encounter; Y93.89 Activity, other specified; Y92.098 Other place in other non-institutional residence as the place of occurrence of the external cause; Y99.8 Other external cause status
CPT/HCPCS: 12013; 36415; 70450; 72125; 80053; 81001; 82550; 82553; 84484; 85007; 85025; 85610; 85730; 87040; 99284; J7030